=== PATIENT | female | born 1985 | race Caucasian/White ===

== ENCOUNTER 2018-02-10 09:07 | Inpatient (IN) ==
[2018-02-10 09:44] LABS: Baso # (Auto) 0.1 th/mm3 (0.0-0.2); Baso % (Auto) 0.4 % (0.0-2.0); Hematocrit 30.4 % (35.0-46.0); Hemoglobin 9.7 gm/dL (11.6-15.3); Lymph # (Auto) 0.3 th/mm3 (1.0-4.8); Lymph % (Auto) 1.1 % (9.0-44.0); Mean Corpuscular Hemoglobin 27.5 pg (27.0-34.0); Mean Corpuscular Volume 85.8 fL (80.0-100.0); Mean Platelet Volume 7.7 fL (7.0-11.0); Mono # (Auto) 1.5 th/mm3 (0.0-0.9); Mono % (Auto) 5.8 % (0.0-8.0); Neut # (Auto) 24.7 th/mm3 (1.8-7.7); Neut % (Auto) 92.7 % (16.0-70.0); Platelet Count 212 th/mm3 (150-450); Red Blood Count 3.54 mil/mm3 (4.00-5.30); Red Cell Distribution Width 15.6 % (11.6-17.2); White Blood Count 26.6 th/mm3 (4.0-11.0)
--- NOTE | 2018-02-10 09:47 | ED ---
HPI General Chief complaint: Nausea/Vomiting/Diarrhea Stated complaint: Medical Time Seen by Provider: 02/10/18 09:37 Source: patient Mode of arrival: EMS Limitations: no limitations History of Present Illness HPI narrative: Patient is a 32-year-old female who is an IV drug abuser, presents to the emergency room with complaints of withdrawal symptoms. Patient reports that she uses IV heroin, she does not remember when she last used. Patient is currently withdrawing from her heroin as she has not used in the past few days. Patient reports that she has been having fevers, chills, reports that she has been having nausea with vomiting and diarrhea. Patient reports that she feels weak. Patient reports that she was actively trying to quit using drugs for self, that is why she stopped shooting up heroin. Patient denies suicidal or homicidal ideation. Patient denies any other drug abuse. Related Data Allergies Allergy/AdvReac Type Severity Reaction Status Date / Time *MDRO Multi-Drug Resistant Allergy Unknown Uncoded 09/04/13 13:15 Organism Review of Systems ROS: all other systems reviewed are negative [facility] Social History Social History Substance History: Active Abuse Second Hand Smoke Exposure: Yes Smoking Status: Current every day smoker Tobacco Type: Cigarettes How Often Do You Have a Drink Containing Alcohol: Never Recent Travel in [facility] within the Last 8 Weeks: No Recent Out of Country Travel within the Last 8 Weeks: No Substance Abuse Detail Heroin: Substance Use Status: Active Route Used Substance Abuse: Intravenously Reason for Use: Calm Down, Curiosity and Feels Good Immunization History Tetanus Immunization: <5 Years Exam Narrative Exam Narrative: GENERAL: Moderate distress SKIN: Focused skin assessment warm/dry. HEAD: Atraumatic. Normocephalic. EYES: Pupils equal and round. No scleral icterus. No injection or drainage. ENT: No nasal bleeding or discharge. Mucous membranes pink and moist. NECK: Trachea midline. No JVD. CARDIOVASCULAR: Patient is tachycardic with a heart rate in the 130s. a cardiac murmur is appreciated. RESPIRATORY: No accessory muscle use. Clear to auscultation. Breath sounds equal bilaterally. GASTROINTESTINAL: Abdomen soft, non-tender, nondistended. Hepatic and splenic margins not palpable. MUSCULOSKELETAL: No obvious deformities. No clubbing. No cyanosis. No edema. Patient with multiple track cantu to bilateral AC's, there are no obvious signs of infection. NEUROLOGICAL: Awake and alert. No obvious cranial nerve deficits. Motor grossly within normal limits. Normal speech. PSYCHIATRIC: Anxious mood and affect Course Initial Documented Vital Signs Temperature 98.5 F 02/10/18 09:14 Pulse Rate 126 H 02/10/18 09:14 Respiratory Rate 34 H 02/10/18 09:14 Blood Pressure 121/77 02/10/18 09:14 Pulse Oximetry 94 L 02/10/18 09:14 Last Documented Vital Signs Temperature 98.6 F 02/10/18 09:20 Pulse Rate 134 H 02/10/18 10:47 Respiratory Rate 50 H 02/10/18 10:47 Blood Pressure 185/93 H 02/10/18 10:47 Pulse Oximetry 94 L 02/10/18 09:14 Critical Care Time Critical Care Time: Yes Total Critical Care Time: 45 Attestation: Aggregate critical care time was 45 minutes. Time to perform other separately billable procedures was not included in the critical care time. My time did not include minutes spent treating any other patients simultaneously or on activities that did not directly contribute to the patient's treatment. The services I provided to this patient were to treat and/or prevent clinically significant deterioration that could result in: , decompensation, deterioration I provided critical care services requiring my management, as noted below: Chart data review, documentation time, medication orders and management, vital sign assessments/reviewing monitor data, ordering and reviewing lab tests, ordering and interpreting/reviewing x-rays and diagnostic studies, care of the patient and discussion of the patient with the admitting physicians. Medical Decision Making MDM Narrative Medical decision making narrative: During the course of the patients emergency department visit, the patients history, examination, and differential diagnosis were reviewed with the patient. The patient was placed on a calibration engineer with oximetry and frequent blood pressure monitoring. The patient had an IV access obtained and blood work sent for analysis. The patient was initially provided IV fluids as well as IV Ativan to help with her withdrawal symptoms. Patient is tachycardic, patient is complaining of fevers and chills, blood cultures were ordered as there is concern for possible bacteremia versus endocarditis. The patients laboratory studies were reviewed and remarkable for: wbc 26.6, hgb 9.7, hct 30.4, platetet 212 Patient is tachycardic with a white blood cell count of 26.1, a septic workup was initiated. I am concerned the patient possibly has endocarditis, will cover with vancomycin as well as Zosyn. Lactic acid is 4.0 Patient wtih a sodium of 125, potassium 3.2, run 21, cr 1.35 lfts are all elevated Patient with sepsis with hyponatremia and hypokalemia currently detoxing from opiates. Plan to admit to the [facility] case reviewed with Dr. Ruiz who accepts pt to service Patient's trop is 7.29, ekg with sinus tach at [address] seg elevation - this was reviewed with Dr. Ruiz - she has ordered a STAT echo - request call out to patient support representative Medical Screen Exam Complete: Yes Emergency Medical Condition: Yes Differential Diagnosis Differential Diagnosis: Opiate withdrawal, gastritis, gastroenteritis, bacteremia, endocarditis Medical Records Medical records reviewed: Yes I reviewed the patient's medical records. Lab Data Result diagrams: 02/10/18 09:31 02/10/18 09:31 Lab Results 02/10/18 02/10/18 02/10/18 Range/Units 09:31 09:31 09:31 WBC 26.6 H (4.0-11.0) th/mm3 RBC 3.54 L (4.00-5.30) mil/mm3 Hgb 9.7 L (11.6-15.3) gm/dL Hct 30.4 L (35.0-46.0) % MCV 85.8 (80.0-100.0) fL MCH 27.5 (27.0-34.0) pg MCHC 32.0 (32.0-36.0) % RDW 15.6 (11.6-17.2) % Plt Count 212 (150-450) th/mm3 MPV 7.7 (7.0-11.0) fL Prelim Diff (Auto) Slide review pending Neut % (Auto) 92.7 H (16.0-70.0) % Lymph % (Auto) 1.1 L (9.0-44.0) % [place] % (Auto) 5.8 (0.0-8.0) % Eos % (Auto) 0.0 (0.0-4.0) % Baso % (Auto) 0.4 (0.0-2.0) % Neut # (Auto) 24.7 H (1.8-7.7) th/mm3 Lymph # (Auto) 0.3 L (1.0-4.8) th/mm3 [place] # (Auto) 1.5 H (0.0-0.9) th/mm3 Eos # (Auto) 0.0 (0.0-0.4) th/mm3 Baso # (Auto) 0.1 (0.0-0.2) th/mm3 WBC Differential Manual diff final Seg Neuts % (Manual) 80 H (16-70) % Band Neuts % (Manual) 19 H (0-6) % Monocytes % (Manual) 1 (0-8) % Abs Neuts (Manual) 26.3 H (1.8-7.7) th/mm3 Differential Comment . Toxic Granulation 2+ H (None) Toxic Vacuolation Present H (None) Platelet Estimate Normal (Normal) Platelet Morphology Normal (Normal) PT (9.8-11.6) sec INR Ratio APTT (23.4-31.7) sec Sodium 125 L (136-145) meq/L Potassium 3.2 L (3.5-5.1) meq/L Chloride 93 L (98-107) meq/L Carbon Dioxide 20.0 L (21.0-32.0) meq/L Anion Gap 12 (5-15) meq/L BUN 21 H (7-18) mg/dL Creatinine 1.35 H (0.50-1.00) mg/dL Estimated GFR 45 L (>89) mL/min Random Glucose 241 H (74-106) mg/dL Lactic Acid 4.0 H (0.4-2.0) mmol/L Calcium 8.0 L (8.5-10.1) mg/dL Total Bilirubin 0.6 (0.2-1.0) mg/dL AST 346 H (15-37) U/L ALT 173 H (10-53) U/L Alkaline Phosphatase 197 H (45-117) U/L Troponin I (0.02-0.05) ng/mL Total Protein 7.5 (6.4-8.2) g/dL Albumin 2.0 L (3.4-5.0) g/dL 02/10/18 02/10/18 Range/Units 09:31 09:50 WBC (4.0-11.0) th/mm3 RBC (4.00-5.30) mil/mm3 Hgb (11.6-15.3) gm/dL Hct (35.0-46.0) % MCV (80.0-100.0) fL MCH (27.0-34.0) pg MCHC (32.0-36.0) % RDW (11.6-17.2) % Plt Count (150-450) th/mm3 MPV (7.0-11.0) fL Prelim Diff (Auto) Neut % (Auto) (16.0-70.0) % Lymph % (Auto) (9.0-44.0) % [place] % (Auto) (0.0-8.0) % Eos % (Auto) (0.0-4.0) % Baso % (Auto) (0.0-2.0) % Neut # (Auto) (1.8-7.7) th/mm3 Lymph # (Auto) (1.0-4.8) th/mm3 [place] # (Auto) (0.0-0.9) th/mm3 Eos # (Auto) (0.0-0.4) th/mm3 Baso # (Auto) (0.0-0.2) th/mm3 WBC Differential Seg Neuts % (Manual) (16-70) % Band Neuts % (Manual) (0-6) % Monocytes % (Manual) (0-8) % Abs Neuts (Manual) (1.8-7.7) th/mm3 Differential Comment Toxic Granulation (None) Toxic Vacuolation (None) Platelet Estimate (Normal) Platelet Morphology (Normal) PT 14.8 H (9.8-11.6) sec INR 1.5 Ratio APTT 33.1 H (23.4-31.7) sec Sodium (136-145) meq/L Potassium (3.5-5.1) meq/L Chloride (98-107) meq/L Carbon Dioxide (21.0-32.0) meq/L Anion Gap (5-15) meq/L BUN (7-18) mg/dL Creatinine (0.50-1.00) mg/dL Estimated GFR (>89) mL/min Random Glucose (74-106) mg/dL Lactic Acid (0.4-2.0) mmol/L Calcium (8.5-10.1) mg/dL Total Bilirubin (0.2-1.0) mg/dL AST (15-37) U/L ALT (10-53) U/L Alkaline Phosphatase (45-117) U/L Troponin I 7.29 H* (0.02-0.05) ng/mL Total Protein (6.4-8.2) g/dL Albumin (3.4-5.0) g/dL Imaging Data Radiologist's impression: Chest X-Ray 02/10/18 09:43 CONCLUSION: 1. Platelike airspace disease at the lung bases bilaterally, presumably atelectasis. Differential considerations include pneumonia and aspiration in the appropriate clinical setting. Discharge Plan Discharge Disposition Patient Disposition: ED Admit(ED Internal Use Only) Discharge Condition Condition: Serious Discharge Order Discharge Orders: ED Use Only Admit Order (Routine); Ordered 02/10/18 Ordered By: Wendi Cates Discharge Details Diagnosis: Sepsis, Acute hyponatremia, Acute hypokalemia, Acute opioid withdrawal Physicians Team ED Provider: Wendi Cates Primary Care Provider: Primary Care Julio Ci,Michaela Attending Provider: Marybeth Ruiz Status ED Status: Admitted Patient
[2018-02-10] MEDS ORDERED: Piperacil/Tazo 3.375 GM Premix 50 ML IV.SIG ONE (09:58)
[2018-02-10] MEDS ORDERED: Vancomycin Inj 1,000 MG in Sodium Chlor 0.9% Inj 250 ML IV.SIG ONE (09:58)
[2018-02-10 10:00] LABS: Anion Gap 12 meq/L (5-15); Aspartate Aminotransferase 346 U/L (15-37); Blood Urea Nitrogen 21 mg/dL (7-18); Chloride 93 meq/L (98-107); Glomerular Filtration Rate 45 mL/min (>89); Glucose,Random 241 mg/dL (74-106); Potassium 3.2 meq/L (3.5-5.1); Sodium 125 meq/L (136-145)
[2018-02-10 10:02] LABS: Alanine Aminotransferase 173 U/L (10-53)
[2018-02-10 10:03] LABS: Alkaline Phosphatase 197 U/L (45-117); Total Protein 7.5 g/dL (6.4-8.2)
[2018-02-10] MEDS ORDERED: Potassium Chlor 20 mEq Premix 20 MEQ/100 ML PIGGYBACK IV.SIG ONE (10:07)
[2018-02-10 10:28] LABS: Monocytes 1 % (0-8); Platelet Estimate Normal (Normal); Platelet Morphology Normal (Normal); Toxic Granulation 2+; Toxic Vacuolation Present
[2018-02-10 10:28] LABS: Activated Partial Thrombo Time 33.1 sec (23.4-31.7); INR 1.5 Ratio; Prothrombin Time 14.8 sec (9.8-11.6)
[2018-02-10] MEDS: Sod Chloride 0.9% Inj 1,000 ML IV.SIG SCH ×2 (10:28→10:55)
--- NOTE | 2018-02-10 10:28 | XR ---
EXAM DATE: 02/10/2018 10:14 AM EST AGE/SEX: 32 years / Female INDICATIONS: Shortness of breath. CLINICAL DATA: This is the patient's initial encounter. Patient reports that signs and symptoms have been present for 1 day and indicates a pain score of Nonresponsive. MEDICAL/SURGICAL HISTORY: Non-responsive. Non-responsive. COMPARISON: No prior exams available for comparison. FINDINGS: Platelike airspace disease at the lung bases bilaterally. Cardiac silhouette is in the upper limits o f normal given portable technique and degree of lung expansion. Osseous structures are intact. CONCLUSION: 1. Platelike airspace disease at the lung bases bilaterally, presumably atelectasis. Differential co nsiderations include pneumonia and aspiration in the appropriate clinical setting. Electronically signed by: Jaycob Bowling MD 02/10/2018 10:27 AM EST
[2018-02-10] MEDS ORDERED: Acetaminophen 325 MG Tablet PO PRN (10:35)
[2018-02-10] MEDS ORDERED: Bisacodyl 10 MG Supp RECTAL PRN (10:35)
[2018-02-10] MEDS ORDERED: Vancomycin Consult Pharmacy OTHER PRN (10:48)
[2018-02-10] MEDS ORDERED: Sod Chloride 0.9% Inj 1,000 ML IV.SIG SCH ×2 (11:00→12:58)
[2018-02-10 11:03] LABS: ABG PCO2 24 mmHg (38-42); ABG PO2 62 mmHg (61-120)
[2018-02-10] MEDS: Heparin - SQ 10,000 UNITS/ML Vial SQ SCH ×2 (11:32→21:06)
--- NOTE | 2018-02-10 12:24 | ECHRPT ---
Indication: sepsis poss endocarditis CONCLUSIONS Mildly dilated left ventricle. Wall thickness is normal. The left ventricular systolic function is normal with an estimated ejection fraction in the range of 55-60%. The left atrial size is mildly dilated. Mild mitral valve regurgitation. Mild thickening of the aortic valve leaflets. Moderate aortic valve regurgitation. The estimated pulmonary arterial pressure is 42 mmHg. There is mild tricuspid valve regurgitation. There is a small pericardial effusion present. Suspect aortic valve endocarditis. BP: / HR: Rhythm: MEASUREMENTS (Male / Female) Normal Values Technical Quality:Technically difficult study 2D ECHO LV Diastolic Diameter PLAX 5.4 cm 4.2 - 5.9 / 3.9 - 5.3 cm LV Systolic Diameter PLAX 3.8 cm IVS Diastolic Thickness 0.9 cm 0.6 - 1.0 / 0.6 - 0.9 cm LVPW Diastolic Thickness 1.0 cm 0.6 - 1.0 / 0.6 - 0.9 cm LV Relative Wall Thickness 0.3 RV Internal Dim ED PLAX 2.5 cm LVOT Diameter 2.2 cm Aortic Root Diameter 2.6 cm LA Systolic Diameter LX 4.0 cm 3.0 - 4.0 / 2.7 - 3.8 cm LV Ejection Fraction MOD BP 49.3 % >= 55 % LV Ejection Fraction MOD 4C 51.4 % LV Ejection Fraction 4C AL 52.9 % LV Ejection Fraction MOD 2C 46.3 % LV Ejection Fraction 2C AL 49.0 % M-MODE Aortic Root Diameter MM 2.5 cm LA Systolic Diameter MM 4.4 cm LA Ao Ratio MM 1.8 AV Cusp Separation MM 1.8 cm DOPPLER AV Peak Velocity 168.0 cm/s AV Peak Gradient 11.3 mmHg AV Mean Gradient 7.0 mmHg AV Velocity Time Integral 21.0 cm AI Peak Velocity 349.0 cm/s AI Peak Gradient 48.7 mmHg AI Pressure Half Time 155.0 ms LVOT Peak Velocity 155.0 cm/s LVOT Peak Gradient 9.6 mmHg LVOT Velocity Time Integral 18.1 cm AV Area Cont Eq vti 3.3 cm AV Area Cont Eq pk 3.5 cm Mitral E Point Velocity 126.0 cm/s Mitral A Point Velocity 91.0 cm/s Mitral E to A Ratio 1.4 LV E' Lateral Velocity 12.5 cm/s Mitral E to LV E' Lateral Ratio 10.1 LV E' Septal Velocity 13.5 cm/s Mitral E to LV E' Septal Ratio 9.3 TR Peak Velocity 282.0 cm/s TR Peak Gradient 31.8 mmHg Right Atrial Pressure 10.0 mmHg Pulmonary Artery Systolic Pressu 41.8 mmHg Right Ventricular Systolic Press 41.8 mmHg PV Peak Velocity 149.0 cm/s PV Peak Gradient 8.9 mmHg FINDINGS LEFT VENTRICLE Mildly dilated left ventricle. Wall thickness is normal. The left ventricular systolic function is normal with an estimated ejection fraction in the range of 55-60%. LEFT ATRIUM The left atrial size is mildly dilated. MITRAL VALVE Mild mitral valve regurgitation. AORTIC VALVE Mild thickening of the aortic valve leaflets. Moderate aortic valve regurgitation. Suspect a vegetation on the non=coronary cusp c/w endocarditis. TRICUSPID VALVE The estimated pulmonary arterial pressure is 42 mmHg. There is mild tricuspid valve regurgitation. PERICARDIUM There is a small pericardial effusion present. Rubén Ham MD (Electronically Signed) Final Date:10 February 2018 12:23
[2018-02-10 12:26] LABS: CKMB Percent 2.6 % (0.0-4.0); Creatine Kinase MB 9.5 ng/mL (0.5-3.6)
[2018-02-10 12:31] LABS: Hepatitits B Surface Antigen Nonreactive (Nonreactive)
[2018-02-10] MEDS ORDERED: Succinylcholine Inj 100 MG/5 ML Syringe IV.PUSH ONE (12:56)
[2018-02-10 12:58] LABS: Hepatitis A IgM Antibody Nonreactive (Nonreactive)
[2018-02-10] MEDS ORDERED: Propofol Inj 500 MG/50 ML Vial ONE (12:58)
[2018-02-10] MEDS ORDERED: Succinylcholine Inj 200 MG/10 ML Vial ONE ×2 (12:58)
[2018-02-10] MEDS ORDERED: RASS Change Order OTHER ONE (13:00)
[2018-02-10] MEDS ORDERED: PROPOFOL 1000 MG/100 ML IV.PUSH ONE (13:30)
--- NOTE | 2018-02-10 13:30 | MB ---
cc: Rubén Ham MD DATE: 02/10/2018 CARDIOLOGY CONSULTATION REASON FOR CONSULTATION: Endocarditis. HISTORY OF PRESENT ILLNESS: Ary Brunson is a 32-year-old female intravenous drug abuser. She reported to the ER doctor that she uses IV heparin; had not used in a few days and is going through heavy withdrawal. At the time I am seeing the patient, she is curled up in the fetus position on the side and I could not get her to straighten out or provide me any history. She is on a nonrebreather mask and in the process of being intubated. I have already looked at her echocardiogram and Doppler study. Her LV function looks good, but there is moderate aortic regurgitation and I suspect there is a vegetation on the noncoronary cusp. PAST MEDICAL HISTORY: Only notable for intravenous drug abuse. She is also a current everyday smoker according to the chart. PHYSICAL EXAMINATION: GENERAL: Reveals what appears to be a middle-aged female; appears older than her stated age. She is in moderate to severe respiratory distress on a nonrebreather mask in the process of being intubated. HEENT: Unremarkable. NECK: From the position she was in, I could not see any JVD. LUNGS: Negative for any rales. CARDIAC: S1, S2 are tachycardic. Could not appreciate murmurs at this time, particularly with the inability to lay her flat. ABDOMEN: Soft. EXTREMITIES: Reveal no clubbing, cyanosis or edema. There is track cantu in the cubital fossa bilaterally. LABORATORY DATA: Extremely abnormal. White count 26,600, platelet count 212,000, hematocrit 30.4. Sodium depressed at 125, potassium low 3.2, creatinine 1.35. AST, ALT and alkaline phosphatase severely elevated. Troponins elevated to 7.29. CPK is elevated 369. Albumin is depressed at 2.0. IMAGING: Her chest x-ray suggesting plate-like atelectasis. IMPRESSION: The patient appears grossly septic and based on the echo, is highly suggestive of aortic valve endocarditis. The images are not clear, but it looks suggestive of a vegetation on the noncoronary cusp with moderate aortic regurgitation. LV function is preserved. Elevated troponin may be from sepsis or possible mycotic aneurysm or septic emboli to the coronaries. RECOMMENDATIONS: Would recommend an infectious disease consult at some point, she will need a followup ROSANNA. She is not a surgical candidate as of today, so I am going to hold off on doing the ROSANNA today. I will follow her loosely along with the expanded function dental assistant and infectious disease team. I will be available for a ROSANNA when this will be more helpful in guiding her management. For now, she will need broad-spectrum antibiotics and cultures, which have already been arranged. Further therapy to be determined. MD RYAN Martins/domitila , 01:08 PM , 01:16 PM
--- NOTE | 2018-02-10 13:51 | P.PCN ---
Date of procedure: 02/10/18 Pre-op diagnosis: Drug withdrawal syndrome, sepsis Post-op diagnosis: same Procedure: Diagnosis: Drug withdrawal, sepsis Indications: Medication administration, CVP monitoring, laboratory specimen asked Consent: Emergent Anesthesia: Intubated and sedated see (MAR) Description of the Procedure: The patient was placed in the supine, mild- Trendelenburg position. The area was prepped and draped sterilely. A 19g needle was inserted under negative pressure aspiration and dark venous blood was obtained. A guidewire was inserted easily without resistance. A small incision was made using a #11 blade. Using a modified Seldinger technique, the dilator and 7F 20 cm catheter were advanced over the guidewire without resistance. All ports were aspirated and flushed, and had brisk blood return. The line was secured at 19 cmat the skin using StatLock secured to. A Biopatch and Transparent sterile dressing were applied. There were no immediate complications noted. There was minimal EBL. The patient tolerated the procedure well. Ultrasound Guidance: Ultrasound guidance was used to identify the left internal jugular. The vascular anatomy was normal. The vessel was cannulated under direct , real-time ultrasound visualization. After placement of the guidewire, confirmation of the guidewire in the lumen of the vessel was made using ultrasound visualization, before dilation of the tract. A Chest x-ray has been ordered. I personally performed the procedure. Anesthesia: local Condition: stable Disposition: ICU
--- NOTE | 2018-02-10 13:53 | P.PCN ---
Date of procedure: 02/10/18 Pre-op diagnosis: Respiratory insufficiency, tachypnea Post-op diagnosis: same Procedure: Endotracheal Intubation Diagnosis: Drug withdrawal, sepsis Indications: Respiratory insufficiency Consent: Emergent Anesthesia: see MAR Description of the Procedure: The patient was positioned in the sniffing position. Pre-oxygenation was performed using a 100% BVM. Anesthesia was induced via rapid sequence, with cricoid pressure. A glide scope 3 was used for laryngoscopy and a Grade 1 view was obtained. A 7.5 cuffed endotracheal tube was inserted atraumatically through the vocal cords. Confirmation of correct endotracheal tube placement was made by equal and bilateral breath sounds and colorimetric CO2 detection. The endotracheal tube was secured at 22 cm at the teeth. There were no immediate complications noted. The patient remained hemodynamically stable throughout the procedure. A chest x-ray has been ordered. I personally performed the procedure.
[2018-02-10 13:57] LABS: ABG PCO2 44 mmHg (38-42); ABG PO2 93 mmHG (61-120)
--- NOTE | 2018-02-10 14:12 | XR ---
EXAM DATE: 02/10/2018 2:05 PM EST AGE/SEX: 32 years / Female INDICATIONS: Post endotracheal tube and left central line. CLINICAL DATA: This is the patient's subsequent encounter. Patient reports that signs and symptoms h ave been present for 2 days and indicates a pain score of Nonresponsive. MEDICAL/SURGICAL HISTORY: Non-responsive. Non-responsive. COMPARISON: C, CHEST 1V SINGLE AP, 02/10/2018. . FINDINGS: Portable AP view of the chest demonstrates cardiac silhouette size at the upper limits for normal. Na sogastric tube distal tip is at the GE junction with sentinel hole in the distal esophagus. Endotrach eal tube distal tip is near the aortic knob level measuring approximately 4.8 cm from the radha. Lef t IJ central line distal tip is in the SVC and no pneumothorax is visualized. There is stable mild bi basilar airspace opacity. CONCLUSION: 1. Endotracheal tube in appropriate position with tip measuring 4.8 cm from the radha. 2. Left IJ central line distal tip in the SVC without pneumothorax. 3. The nasogastric tube should be advanced the stomach. 4. Stable bibasilar opacity. Electronically signed by: Wm Molina MD 02/10/2018 2:10 PM EST
--- NOTE | 2018-02-10 14:23 | P.HPCC ---
History of Present Illness Service: ICU Primary Care Physician: No Primary Care Physician Chief Complaint: Drug withdrawal History of Present Illness: This is a 32-year-old female that presented to [facility] emergency department with drug withdrawal symptoms. The patient reported to the ED physician Dr. Dwyer that she is a IV drug abuser and normally utilizes heroin but has been withdrawing. The patient was noted to be in rigors. Laboratory and imaging studies were performed the patient was noted to have a lactic acid of 4. Initial troponin was significantly elevated at 4. Cardiology was consulted nadd a stat transthoracic echo was performed which noted a vegetation on the aortic valve. Cardiology was consulted. In the ED the patient received prophylactic antibiotics vancomycin and Zosyn as well as 2 mg of Ativan. All information obtained from medical records upon my examination the patient was not responding to questions. In the ED the patient was noted to be diaphoretic , tachycardic, copious diarrhea. Critical care medicine was consulted Inpatient Certification: I certify that the inpatient services were ordered in accordance with Medicare regulations governing the order. This includes certification that hospital inpatient services are reasonable and necessary and in the case of services not specified as inpatient-only under 42 CFR 419.22(n), that they are appropriately provided as inpatient services in accordance to with the 2-midnight benchmark under 43 CFR 412.3(e) Estimated Total Length of Stay (Days): 5 Plans for Post Hospital Care: Not yet determined Review of Systems unobtainable due to mental status PMFSH - History History Provided By: Patient - Tobacco History Second Hand Smoke Exposure: Yes Tobacco Use In Past 30 Days: Yes Smoking Status: Current every day smoker Tobacco Type: Cigarettes - Alcohol History How Often Do You Have a Drink Containing Alcohol: Never - Substance Use History Substance History: Active Abuse - Substance Use Type Heroin Status: Active Route Used: Intravenously Reason for Use: Calm Down, Curiosity, Feels Good - Travel History Recent Travel in the [place] Within the Last 8 Weeks: No Recent Travel Out of the Country Within the Last 8 Weeks: No - Immunization History Tetanus Immunization: <5 Years Medications and Allergies Active Medications: Active Medications Acetaminophen (Tylenol) 650 mg PO Q6H PRN PRN Reason: PAIN 1-10 AND/OR FEVER >101F Al Hydroxide/Mg Hydroxide (Milk Of Magnesia Liq) 30 ml PO Q12H PRN PRN Reason: Mild Constipation Albuterol (Duoneb Neb (Prn)) 1 ampul NEB Q2HR NEB PRN PRN Reason: WHEEZING Bisacodyl (Dulcolax Supp) 10 mg RECTAL DAILY PRN PRN Reason: SEVERE CONSITIPATION Chlorhexidine Gluconate (Chlorhexidine 2% Cloth) 3 pack TOPICAL DAILY@0400 MARICRUZ Stop: 02/16/18 03:59 Chlorhexidine Gluconate (Chlorhexidine 2% Cloth) 3 pack TOPICAL DAILY@0400 PRN PRN Reason: Extra cloth needed Stop: 02/16/18 03:59 Famotidine (Pepcid Pf Inj) 20 mg IV.PUSH Q12HR MARICRUZ Heparin Sodium (Porcine) (Heparin Inj) 5,000 units SQ Q12HR MARICRUZ Last Admin: 02/10/18 11:32 Dose: 5,000 units Potassium Chloride/Dextrose/Sod Cl (D5w/1/2ns + Kcl 20 Meq Inj) 1,000 mls @ 100 mls/hr IV.CONT .Q10H MARICRUZ Piperacillin/Tazobactam/Dextrose (Zosyn 2.25 Gm Premix) 50 mls @ 100 mls/hr IV.SIG Q6H MARICRUZ Vancomycin HCl 1,000 mg/ (Sodium Chloride) 250 mls @ 250 mls/hr IV.SIG Q18H MARICRUZ Dexmedetomidine HCl 200 mcg/ (Sodium Chloride) 50 mls @ 2.94 mls/hr IV.CONT TITRATE PRN; Protocol PRN Reason: Per Protocol Acetaminophen (Ofirmev Inj) 1,000 mg in 100 mls @ 400 mls/hr IV.SIG Q6H PRN PRN Reason: PAIN SCALE 1 TO 10 Stop: 02/12/18 23:59 Sodium Chloride (Ns Inj) 1,000 mls @ 1,000 mls/hr IV.SIG BOLUS MARICRUZ Stop: 02/10/18 13:57 Lactulose (Lactulose Liq) 30 ml PO DAILY PRN PRN Reason: SEVERE CONSITIPATION Miscellaneous Information ([facility] Ordered Lab Info) 0 each OTHER ONCE ONE Stop: 02/12/18 15:46 Ondansetron HCl (Zofran Inj) 4 mg IV.PUSH Q6H PRN PRN Reason: NAUSEA OR VOMITING Pharmacy Profile Note (Vancomycin Consult Pharmacy) 1 each OTHER UNSCH PRN PRN Reason: Pharmacy to dose Sennosides (Senokot) 17.2 mg PO Q12H PRN PRN Reason: Moderate Constipation Sodium Chloride (Ns Flush) 2 ml IV.FLUSH BID MARICRUZ Sodium Chloride (Ns Flush) 2 ml IV.FLUSH PRN PRN PRN Reason: FLUSH AFTER USING IV ACCESS Allergies Allergy/AdvReac Type Severity Reaction Status Date / Time *MDRO Multi-Drug Resistant Allergy Unknown Uncoded 09/04/13 13:15 Organism Home Medications Medication Instructions Recorded Confirmed Type Unable to Obtain Home Meds 02/10/18 02/10/18 History Results - Labs CBC & Chem 7: 02/10/18 09:31 02/10/18 09:31 Labs: Short CBC 02/10/18 Range/Units 09:31 WBC 26.6 H (4.0-11.0) th/mm3 Hgb 9.7 L (11.6-15.3) gm/dL Hct 30.4 L (35.0-46.0) % Plt Count 212 (150-450) th/mm3 BMP 02/10/18 09:31 Sodium 125 L Potassium 3.2 L Chloride 93 L Carbon Dioxide 20.0 L BUN 21 H Creatinine 1.35 H Calcium 8.0 L Cardiac Enzymes 02/10/18 02/10/18 Range/Units 09:31 11:21 Total Creatine Kinase 369 H (26-192) U/L CK-MB (CK-2) 9.5 H (0.5-3.6) ng/mL Troponin I 7.29 H* (0.02-0.05) ng/mL Liver Function 02/10/18 Range/Units 09:31 Total Bilirubin 0.6 (0.2-1.0) mg/dL AST 346 H (15-37) U/L ALT 173 H (10-53) U/L Alkaline Phosphatase 197 H (45-117) U/L Albumin 2.0 L (3.4-5.0) g/dL - Imaging Impressions Chest X-Ray 02/10/18 09:43 CONCLUSION: 1. Platelike airspace disease at the lung bases bilaterally, presumably atelectasis. Differential considerations include pneumonia and aspiration in the appropriate clinical setting. Exam Vital signs: Vital Signs 02/10/18 09:14 02/10/18 09:20 02/10/18 10:47 Temperature 98.5 F 98.6 F Pulse Rate 126 H 134 H Respiratory Rate 34 H 50 H Blood Pressure 121/77 185/93 H Pulse Oximetry 94 L 02/10/18 11:37 02/10/18 12:00 02/10/18 13:06 Temperature Pulse Rate 137 H 134 H Respiratory Rate 50 H 48 H 18 Blood Pressure 127/86 156/66 H Pulse Oximetry 96 96 97 Intake & Output 02/09/18 02/10/18 02/10/18 18:59 06:59 18:59 Intake Total 2250 / 2250 Balance 2250 / 2250 Weight 58.967 kg Intake: IV 2250 / 2250 NS Inj 1,000 ML @ 2000 mls/hr 1999 / 1999 IV.SIG Q30M MARICRUZ Rx#:[id number] Vancomycin Inj 1,000 MG In NS 250 / 250 Inj 250 ML @ 250 mls/hr IV.SIG ONCE ONE Rx#:[id number] - Constitutional severe distress, average body habitus, disheveled - Routine HEENT Exam Head: Present: normocephalic Eye: Present: EOMI, PERRL ENT: Present: mucous membranes dry, dentition normal (Multiple caries) - Routine Neck Exam Present: supple, full ROM, trachea midline - Routine Respiratory Exam Present: accessory muscle use, respiratory distress (Tachypneic respiratory rate 61-66) - Routine Cardiovascular Exam Present: RRR, S2, tachycardia - Routine Abdominal Exam Present: soft (Hyperactive bowel sounds) - Routine Extremities Exam Present: normal capillary refill (Multiple needle cantu on upper and lower extremity) - Routine Skin Exam Present: intact, dry, warm - Routine Neurological Exam Present: moving all extremities (Rigors-temp 103.0), tremors Caprini VTE Risk Assessment Caprini VTE Risk Assessment: Moderate/High Risk (score >= 2) Caprini Risk Assessment Model: Point Value = 1 Point Value = 2 Point Value = 3 Point Value = 5 Age 41-60 Minor surgery BMI > 25 kg/m2 Swollen legs Varicose veins or History of unexplained or recurrent spontaneous Oral contraceptives or hormone replacement Sepsis (< 1 month) Serious lung disease, including pneumonia (< 1 month) Abnormal pulmonary function Acute myocardial infarction Congestive heart failure (< 1 month) History of inflammatory bowel disease Medical patient at bed rest Age 61-74 Arthroscopic surgery Major open surgery (> 45 min) Laparoscopic surgery (> 45 min) Malignancy Confined to bed (> 72 hours) Immobilizing plaster cast Central venous access Age >= 75 History of VTE Family history of VTE Factor V Leiden Prothrombin 11425M Lupus anticoagulant Anticardiolipin antibodies Elevated serum homocysteine Heparin-induced thrombocytopenia Other congenital or acquired thrombophilia Stroke (< 1 month) Elective arthroplasty Hip, pelvis, or leg fracture Acute spinal cord injury (< 1 month) Prophylaxis Regimen: Total Risk Factor Score Risk Level Prophylaxis Regimen 0-1 Low Early ambulation 2 Moderate Order ONE of the following: *Sequential Compression Device (SCD) *Heparin 5000 units SQ BID 3-4 Higher Order ONE of the following medications: *Heparin 5000 units SQ TID *Enoxaparin/Lovenox 40 mg SQ daily (WT < 150 kg, CrCl > 30 mL/min) *Enoxaparin/Lovenox 30 mg SQ daily (WT < 150 kg, CrCl > 10-29 mL/min) *Enoxaparin/Lovenox 30 mg SQ BID (WT < 150 kg, CrCl > 30 mL/min) AND/OR *Sequential Compression Device (SCD) 5 or more Highest Order ONE of the following medications: *Heparin 5000 units SQ TID (Preferred with Epidurals) *Enoxaparin/Lovenox 40 mg SQ daily (WT < 150 kg, CrCl > 30 mL/min) *Enoxaparin/Lovenox 30 mg SQ daily (WT < 150 kg, CrCl > 10-29 mL/min) *Enoxaparin/Lovenox 30 mg SQ BID (WT < 150 kg, CrCl > 30 mL/min) AND *Sequential Compression Device (SCD) Assessment and Plan - Assessment and Plan Plan: Assessment This is a 32-year-old female with a history of IV drug abuse of heroin reported per currently an acute drug withdrawal, as well as sepsis. The patient in respiratory distress tachypneic with extreme rigors and elevated temperature required emergent intubation. The patient is critically ill admit to ICU. Plan by systems: Neurologic: IV drug abuse-heroin Drug withdrawal-acute opioid withdrawal Elevated temperature Encephalopathy Neuro checks per ICU protocol Daily sedation vacation Sedated with alpha-2 agonist Precedex infusion Avoid narcotics Add clonidine 0.1 mg 3 times daily via NG tube Provide Versed 2 mg every 4 hours as needed for anxiety or agitation Ofirmev 1 g every 6 hours as needed for temperature greater than 101.0 x 48 hours then utilized Tylenol by NG tube 650 mg every 6 hours as needed Apply cooling blanket 103.0 Respiratory: Acute respiratory insufficiency Tobacco abuse 0 02/10 patient intubated 7.5 ETT at 22 cm at the lip for airway protection and adequate ventilation ABGs post intubation 7./ 40 / 93/19/-6 Cardiovascular: Sinus tachycardia Aortic regurgitation Aortic vegetation Elevated troponin EKG on admission sinus tach with ST changes Initial troponin VII 0.29, follow-up serial troponin TTEcho-EF 55percent, moderate aortic regurgitation, mild MR, mild TR, small pericardial effusion, vegetation aortic valve, PASP [address]. Discussed with Dr. Ham aortic vegetation no plans for transesophageal echo at this time plan to continue antibiotics and current monitoring in the current condition will reevaluate in 24-48 hours Repeat manager parking CVP-initial reading CVP 13 Renal: Renal insufficiency AK I Insert Wasserman for now, may transition to pure weight catheter. Patient extremely dehydrated need close monitoring at this time -- Strict I/Os FEN/GI: Dehydration Hyponatremia Hypokalemia Diarrhea Transaminitis Metabolic acidosis Gastroenteritis secondary to opioid/heroin withdrawal Protein calorie malnutrition Patient bolused with 2 L normal saline IV fluid Central line placed CVP monitoring medication administration and to obtain labs. Electrolyte replacement per ICU protocol Maintain n.p.o. status for now Begin D5 half-normal saline with 20 KCl Zofran for nausea Famotidine for GI prophylax Apply fecal containment device consider Imodium Obtain hepatitis panel Albumin 2.0-maintain n.p.o. status for now Monitor LFT's Give 100 mEq of sodium bicarb IV Heme/ID: Sepsis Possible endocarditis secondary to IVDA Lactic acidemia Bandemia Patient received vancomycin and Zosyn in the emergency room Continue vancomycin and Zosyn prophylactically Follow-up blood culture Obtain urine culture, sputum culture Trend serial lactate levels Monitor CBC Endocrine: Glucose monitoring per ICU protocol -- SSI Prophylaxis: GI Prophylaxis Famotidine DVT Prophylaxis -- SCDs Heparin 5000 units twice daily Lines: Peripheral IVs x2. Secondary to IVDA patient has difficult access for obtainment of labs and monitoring. Left IJ placed for central venous access 02/10 Dispo: My billing statement This patient remains critically ill with one or more organ systems which are or may become a threat to life. I have spent in excess of 60 minutes discontinuously in the care and management of this patient. This time is exclusive of procedures, and includes, but is not limited to, evaluation of the patient, review of the medical record, discussions with family, consultants, nursing staff, or respiratory therapy, and documentation in the medical record. Code Status: Full Discussed Condition With: Dr. Cates, Dr. Ham, BUSINESS INFORMATION MANAGER at bedside
[2018-02-10] MEDS ORDERED: Dextrose 50% in Water 50 ML Vial IV.PUSH PRN (14:24)
[2018-02-10] MEDS ORDERED: Sodium Bicarbonate 8.4% Inj 50 MEQ/50 ML Syringe IV.PUSH ONE (14:26)
[2018-02-10] MEDS: Dexmedetomidine Inj 200 MCG in Sodium Chlor 0.9% Inj 48 ML IV.CONT PRN ×3 (15:07→16:57)
[2018-02-10] MEDS: KCL 20 mEq/D5W/NaCl 0.45% Inj 1,000 ML IV.CONT SCH ×2 (15:14→21:07)
[2018-02-10] MEDS: Propofol 1000 mg/100 ml Inj 1,000 MG/100 ML BOTTLE IV.CONT PRN ×2 (16:56→21:15)
[2018-02-10] MEDS: Insulin NovoLOG Aspart Correctional Sugar Inj SQ SCH ×2 (17:35→21:07)
[2018-02-10] MEDS: Piperacil/Tazo 2.25 GM Premix 50 ML IV.SIG SCH (18:03)
[2018-02-10 18:56] LABS: Amphetamine Screen,Urine Neg (Neg); Barbiturate Screen,Urine Neg (Neg); Cannabinoid Screen,Urine Neg (Neg); Cocaine Screen,Urine Neg (Neg); Opiate Screen,Urine Neg (Neg)
[2018-02-10] MEDS: Dexmedetomidine Inj 1,000 MCG in Sodium Chlor 0.9% Inj 240 ML IV.CONT PRN (20:55)
[2018-02-10] MEDS ORDERED: Albumin Human 5% Inj 500 ML IV.SIG ONE (21:00)
[2018-02-10] MEDS: Famotidine PF Inj 20 MG/2 ML Vial IV.PUSH SCH (21:06)
[2018-02-11] MEDS: Piperacil/Tazo 2.25 GM Premix 50 ML IV.SIG SCH ×2 (00:08→05:19)
[2018-02-11] MEDS: Propofol 1000 mg/100 ml Inj 1,000 MG/100 ML BOTTLE IV.CONT PRN ×5 (02:24→20:55)
[2018-02-11] MEDS: Insulin NovoLOG Aspart Correctional Sugar Inj SQ SCH ×5 (03:40→21:00)
[2018-02-11] MEDS: Vancomycin Inj 1,000 MG in Sodium Chlor 0.9% Inj 250 ML IV.SIG SCH ×2 (03:45→21:01)
[2018-02-11 03:46] LABS: Baso # (Auto) 0.1 th/mm3 (0.0-0.2); Baso % (Auto) 0.3 % (0.0-2.0); Eos # (Auto) 0.1 th/mm3 (0.0-0.4); Eos % (Auto) 0.4 % (0.0-4.0); Hematocrit 23.9 % (35.0-46.0); Mean Corpuscular HGB Conc 33.5 % (32.0-36.0); Mean Corpuscular Hemoglobin 28.4 pg (27.0-34.0); Mean Corpuscular Volume 84.6 fL (80.0-100.0); Mean Platelet Volume 7.8 fL (7.0-11.0); Mono # (Auto) 1.6 th/mm3 (0.0-0.9); Mono % (Auto) 7.8 % (0.0-8.0); Neut # (Auto) 17.4 th/mm3 (1.8-7.7); Neut % (Auto) 86.5 % (16.0-70.0); Platelet Count 142 th/mm3 (150-450); Red Blood Count 2.83 mil/mm3 (4.00-5.30); Red Cell Distribution Width 15.5 % (11.6-17.2); White Blood Count 20.1 th/mm3 (4.0-11.0)
[2018-02-11 03:57] LABS: INR 1.5 Ratio; Prothrombin Time 15.4 sec (9.8-11.6)
[2018-02-11] MEDS ORDERED: Chlorhexidine Gluconate 2% 1 Pack (2 Cloths) TOPICAL PRN (04:00)
[2018-02-11] MEDS: Chlorhexidine Gluconate 2% 1 Pack (2 Cloths) TOPICAL SCH (04:11)
[2018-02-11 04:17] LABS: Albumin 1.8 g/dL (3.4-5.0); Carbon Dioxide 21.9 meq/L (21.0-32.0); Magnesium 2.4 mg/dL (1.5-2.5); Phosphorus 4.5 mg/dL (2.5-4.9); Potassium 3.8 meq/L (3.5-5.1)
[2018-02-11] MEDS: KCL 20 mEq/D5W/NaCl 0.45% Inj 1,000 ML IV.CONT SCH ×3 (05:25→20:55)
[2018-02-11] MEDS: Dexmedetomidine Inj 1,000 MCG in Sodium Chlor 0.9% Inj 240 ML IV.CONT PRN (05:29)
--- NOTE | 2018-02-11 08:38 | P.PNCC ---
Subjective Subjective Remarks/Hospital Course: This is a 32-year-old female that presented to [facility] emergency department with drug withdrawal symptoms. The patient reported to the ED physician Dr. Dwyer that she is a IV drug abuser and normally utilizes heroin but has been withdrawing. The patient was noted to be in rigors. Laboratory and imaging studies were performed the patient was noted to have a lactic acid of 4. Initial troponin was significantly elevated at 4. Cardiology was consulted and a stat transthoracic echo was performed which noted a vegetation on the aortic valve. Cardiology was consulted. In the ED the patient received prophylactic antibiotics vancomycin and Zosyn as well as 2 mg of Ativan. All information obtained from medical records upon my examination the patient was not responding to questions. In the ED the patient was noted to be diaphoretic , tachycardic, copious diarrhea. Critical care medicine was consulted 02/11: Patient was intubated yesterday for worsening respiratory failure and severe sepsis. Currently intubated sedated with propofol and Precedex remains tachypneic on the vent. Requiring Levophed at 11 mcg/min to maintain map above 65. Remains very critical. 2D echo shows mild mitral valve regurgitation. Mild thickening of the aortic valve leaflets. Moderate aortic valve regurgitation. Suspect aortic valve endocarditis. With aortic valve endocarditis and moderate aortic regurgitation prognosis remains guarded Objective Vital Signs / I&O: Vital Signs 02/10/18 09:14 02/10/18 09:20 02/10/18 10:47 Temperature 98.5 F 98.6 F Pulse Rate 126 H 134 H Respiratory Rate 34 H 50 H Blood Pressure 121/77 185/93 H Pulse Oximetry 94 L 02/10/18 11:37 02/10/18 12:00 02/10/18 12:30 Temperature 103.1 F H Pulse Rate 137 H 134 H 143 H Respiratory Rate 50 H 48 H 55 H Blood Pressure 127/86 156/66 H 112/58 L Pulse Oximetry 96 96 95 02/10/18 13:06 02/10/18 13:16 02/10/18 13:18 Temperature Pulse Rate 122 H 125 H Respiratory Rate 18 45 H 60 H Blood Pressure 156/56 H 163/72 H Pulse Oximetry 97 100 97 02/10/18 13:20 02/10/18 13:22 02/10/18 13:24 Temperature Pulse Rate 132 H 132 H 132 H Respiratory Rate 67 H 24 13 Blood Pressure 173/70 H 175/70 H 178/72 H Pulse Oximetry 97 96 96 02/10/18 13:28 02/10/18 13:30 02/10/18 13:32 Temperature Pulse Rate 134 H 136 H 134 H Respiratory Rate 19 19 18 Blood Pressure 174/75 H 170/74 H 171/64 H Pulse Oximetry 95 96 96 02/10/18 13:34 02/10/18 13:36 02/10/18 13:38 Temperature Pulse Rate 135 H 134 H 135 H Respiratory Rate 18 20 31 H Blood Pressure 166/73 H 171/76 H 165/73 H Pulse Oximetry 95 95 95 02/10/18 13:40 02/10/18 13:42 02/10/18 13:44 Temperature Pulse Rate 139 H 137 H 135 H Respiratory Rate 25 H 53 H 64 H Blood Pressure 167/74 H 160/71 H 160/70 H Pulse Oximetry 95 95 95 02/10/18 13:46 02/10/18 13:48 02/10/18 13:50 Temperature Pulse Rate 137 H 135 H 133 H Respiratory Rate 24 20 51 H Blood Pressure 167/72 H 161/70 H 154/67 H Pulse Oximetry 95 95 95 02/10/18 13:52 02/10/18 13:54 02/10/18 13:56 Temperature Pulse Rate 134 H 135 H 134 H Respiratory Rate 27 H 25 H 28 H Blood Pressure 161/70 H 160/69 H 156/58 H Pulse Oximetry 96 96 96 02/10/18 13:58 02/10/18 14:00 02/10/18 14:02 Temperature Pulse Rate 132 H 134 H 133 H Respiratory Rate 92 H 67 H 57 H Blood Pressure 153/67 H 152/69 H 152/68 H Pulse Oximetry 95 95 95 02/10/18 14:04 02/10/18 14:06 02/10/18 14:08 Temperature Pulse Rate 131 H 128 H 127 H Respiratory Rate 47 H 57 H 64 H Blood Pressure 147/66 H 147/65 H 145/64 H Pulse Oximetry 95 96 96 02/10/18 14:10 02/10/18 14:12 02/10/18 14:14 Temperature Pulse Rate 126 H 126 H 127 H Respiratory Rate 87 H 72 H 80 H Blood Pressure 144/64 H 143/64 H 149/66 H Pulse Oximetry 96 96 96 02/10/18 14:15 02/10/18 14:30 02/10/18 14:45 Temperature Pulse Rate 128 H 135 H 134 H Respiratory Rate 98 H 47 H 39 H Blood Pressure 149/65 H 166/76 H 169/74 H Pulse Oximetry 96 96 95 02/10/18 15:00 02/10/18 15:15 02/10/18 15:30 Temperature Pulse Rate 124 H 119 H 114 H Respiratory Rate 52 H 55 H 32 H Blood Pressure 168/77 H 153/67 H 140/63 Pulse Oximetry 95 96 99 02/10/18 15:37 02/10/18 15:45 02/10/18 16:00 Temperature 99.1 F 99.1 F Pulse Rate 114 H 111 H Respiratory Rate 32 H 36 H 36 H Blood Pressure 124/63 120/58 L Pulse Oximetry 98 97 100 02/10/18 16:15 02/10/18 16:30 02/10/18 16:45 Temperature Pulse Rate 111 H 112 H 115 H Respiratory Rate 38 H 32 H 35 H Blood Pressure 110/58 L 120/60 115/65 Pulse Oximetry 99 100 100 02/10/18 17:00 02/10/18 17:15 02/10/18 17:30 Temperature Pulse Rate 110 H 109 H 109 H Respiratory Rate 26 H 41 H 35 H Blood Pressure 96/50 L 98/54 L 102/58 L Pulse Oximetry 100 100 100 02/10/18 17:45 02/10/18 18:00 02/10/18 18:15 Temperature Pulse Rate 111 H 112 H 112 H Respiratory Rate 34 H 33 H 33 H Blood Pressure 104/56 L 110/57 L 105/57 L Pulse Oximetry 100 100 100 02/10/18 18:30 02/10/18 18:45 02/10/18 19:00 Temperature Pulse Rate 114 H 113 H 115 H Respiratory Rate 34 H 32 H 34 H Blood Pressure 107/57 L 101/58 L 102/56 L Pulse Oximetry 100 100 100 02/10/18 19:15 02/10/18 19:30 02/10/18 19:48 Temperature Pulse Rate 112 H 108 H 98 H Respiratory Rate 35 H 32 H 49 H Blood Pressure 97/53 L 85/45 L Pulse Oximetry 100 100 100 02/10/18 19:49 02/10/18 19:52 02/10/18 19:57 Temperature Pulse Rate 98 H 93 H 92 H Respiratory Rate 65 H 71 H 35 H Blood Pressure 64/37 L 67/43 L 72/49 L Pulse Oximetry 100 100 100 02/10/18 20:00 02/10/18 20:06 02/10/18 20:10 Temperature Pulse Rate 92 H 96 H 90 Respiratory Rate 34 H 66 H 70 H Blood Pressure 76/51 L 65/39 L 77/53 L Pulse Oximetry 100 100 100 02/10/18 20:13 02/10/18 20:15 02/10/18 20:30 Temperature Pulse Rate 86 86 85 Respiratory Rate 69 H 52 H 42 H Blood Pressure 83/55 L 85/55 L 86/56 L Pulse Oximetry 100 99 100 02/10/18 20:34 02/10/18 20:45 02/10/18 21:00 Temperature Pulse Rate 82 80 Respiratory Rate 34 H 41 H 43 H Blood Pressure 86/54 L 84/55 L Pulse Oximetry 100 100 99 02/10/18 21:15 02/10/18 21:30 02/10/18 21:45 Temperature Pulse Rate 78 79 75 Respiratory Rate 37 H 27 H 26 H Blood Pressure 83/55 L 85/55 L 83/54 L Pulse Oximetry 100 100 100 02/10/18 22:00 02/10/18 22:15 02/10/18 22:30 Temperature Pulse Rate 75 74 74 Respiratory Rate 28 H 14 11 L Blood Pressure 87/55 L 88/57 L 88/55 L Pulse Oximetry 100 100 100 02/10/18 22:45 02/10/18 23:00 02/10/18 23:15 Temperature Pulse Rate 74 73 73 Respiratory Rate 10 L 4 L 6 L Blood Pressure 89/56 L 89/54 L 89/56 L Pulse Oximetry 100 100 100 02/10/18 23:30 02/10/18 23:41 02/10/18 23:45 Temperature Pulse Rate 73 73 Respiratory Rate 23 25 H 13 Blood Pressure 89/55 L 89/56 L Pulse Oximetry 100 100 100 02/11/18 00:00 02/11/18 00:15 02/11/18 00:30 Temperature Pulse Rate 73 71 71 Respiratory Rate 3 L 27 H 26 H Blood Pressure 90/55 L 87/56 L 88/56 L Pulse Oximetry 100 100 100 02/11/18 00:45 02/11/18 01:00 02/11/18 01:15 Temperature Pulse Rate 71 73 71 Respiratory Rate 26 H 28 H 26 H Blood Pressure 78/51 L 77/50 L 95/59 L Pulse Oximetry 100 99 100 02/11/18 01:30 02/11/18 01:45 02/11/18 02:00 Temperature Pulse Rate 69 70 70 Respiratory Rate 26 H 26 H 26 H Blood Pressure 94/59 L 93/59 L 93/60 L Pulse Oximetry 100 100 100 02/11/18 02:15 02/11/18 02:16 02/11/18 02:30 Temperature Pulse Rate 71 71 Respiratory Rate 29 H 26 H 27 H Blood Pressure 94/58 L 93/58 L Pulse Oximetry 100 100 100 02/11/18 02:45 02/11/18 03:00 02/11/18 03:15 Temperature Pulse Rate 71 70 73 Respiratory Rate 26 H 27 H 27 H Blood Pressure 92/58 L 93/57 L 89/55 L Pulse Oximetry 100 99 100 02/11/18 03:30 02/11/18 03:45 02/11/18 04:00 Temperature Pulse Rate 71 69 70 Respiratory Rate 27 H 32 H 25 H Blood Pressure 93/59 L 105/63 91/57 L Pulse Oximetry 100 100 99 02/11/18 04:09 02/11/18 04:15 02/11/18 04:30 Temperature Pulse Rate 71 71 Respiratory Rate 24 32 H 29 H Blood Pressure 83/50 L 74/46 L Pulse Oximetry 100 100 100 02/11/18 04:46 02/11/18 05:00 02/11/18 05:15 Temperature Pulse Rate 69 70 70 Respiratory Rate 32 H 47 H 43 H Blood Pressure 76/50 L 88/53 L 90/56 L Pulse Oximetry 98 98 100 02/11/18 05:30 02/11/18 05:45 02/11/18 06:00 Temperature Pulse Rate 67 70 70 Respiratory Rate 47 H 11 L 10 L Blood Pressure 106/61 90/51 L 91/52 L Pulse Oximetry 100 100 100 02/11/18 06:15 02/11/18 07:00 Temperature Pulse Rate 70 68 Respiratory Rate 18 18 Blood Pressure 92/54 L 90/54 L Pulse Oximetry 99 99 Intake & Output 02/10/18 02/11/18 02/11/18 18:59 06:59 18:59 Intake Total 2450 / 2450 6000 / 6000 Output Total 800 / 800 Balance 2450 / 2450 5200 / 5200 Weight 58.967 kg 80.5 kg Intake: IV 2450 / 2450 6000 / 6000 Sodium Bicarbonate 8.4% Inj 100 100 / 100 ML @ 0 mls/hr .ROUTE .STK-MED ONE Rx#:[id number] Precedex Inj 1,000 MCG In NS 250 / 250 Inj 240 ML @ 0.2 MCG/KG/HR 2.94 mls/hr IV.CONT TITRATE PRN Rx# :[id number] Precedex Inj 200 MCG In NS Inj 100 / 100 50 / 50 48 ML @ 0.2 MCG/KG/HR 2.94 mls/ hr IV.CONT TITRATE PRN Rx#: [id number] D5W/1/2NS + KCL 20 mEq Inj 1999 / 1999 000 ML @ 125 mls/hr IV.CONT . Q8H MARICRUZ Rx#:[id number] Diprivan 1000 mg/100 ml Inj 1, 300 / 300 000 mg In 100 ml @ 5 MCG/KG/MIN 1.769 mls/hr IV.CONT TITRATE PRN Rx#:[id number] Ofirmev Inj 1,000 mg In 100 ml 100 / 100 @ 400 mls/hr IV.SIG Q6H PRN Rx# :[id number] Alburx 5% Inj 500 ML @ 250 mls/ 500 / 500 hr IV.SIG ONCE ONE Rx#:[id number] Levophed-Dextrose 4 mg/250 ml 250 / 250 Drip 4 mg In 250 ml @ 2 MCG/MIN 7.5 mls/hr IV.SIG TITRATE PRN Rx#:[id number] Zosyn 2.25 GM Premix 50 ML @ 150 / 150 100 mls/hr IV.SIG Q6H MARICRUZ Rx#: [id number] Zosyn 3.375 GM Premix 50 ML @ 50 / 50 100 mls/hr IV.SIG ONCE ONE Rx#: [id number] KCl 20 mEq Premix Inj 20 meq In 100 / 100 100 ml @ 50 mls/hr IV.SIG ONCE ONE Rx#:[id number] NS Inj 1,000 ML @ 1000 mls/hr 1999 IV.SIG BOLUS MARICRUZ Rx#:[id number] Vancomycin Inj 1,000 MG In NS 250 / 250 250 / 250 Inj 250 ML @ 250 mls/hr IV.SIG Q18H MARICRUZ Rx#:[id number] Oral 0 / 0 Output: Urine Amount (Catheter) 800 / 800 Indwelling Urethral Catheter 800 / 800 Other: Date of Last Bowel Movement 02/10/18 # Bowel Movements 1 Result Diagrams: 02/11/18 03:40 02/11/18 03:40 Objective Remarks: - Constitutional Intubated heavily sedated critically ill tachypneic hypotensive - Routine HEENT Exam Head: Present: normocephalic Eye: PERRL ENT: mucous membranes dry, orotracheally intubated - Routine Neck Exam Present: supple, full ROM, trachea midline - Routine Respiratory Exam Present: On PRVC/AC. Remains tachypneic on the vent basilar crackles - Routine Cardiovascular Exam Present: RRR, S2, tachycardia. Hypotensive. No murmur heard - Routine Abdominal Exam Present: soft nontender no organomegaly - Routine Extremities Exam Present: normal capillary refill (Multiple needle cantu on upper and lower extremity) - Routine Skin Exam Present: intact, dry, warm - Routine Neurological Exam Present: Patient remains intubated sedated for vent synchrony. Pupils are reactive. At this time patient does not follow commands or moves extremities spontaneously Assessment and Plan - Assessment and Plan Plan: Assessment This is a 32-year-old female with a history of IV drug abuse of heroin reported per currently an acute drug withdrawal, as well as sepsis. The patient in respiratory distress tachypneic with extreme rigors and elevated temperature required emergent intubation. The patient is critically ill admit to ICU. 2D echo showed a suspected aortic valve vegetation with moderate AR Plan by systems: Neurologic: IV drug abuse-heroin Acute opioid withdrawal Elevated temperature Metabolic encephalopathy Neuro checks per ICU protocol Daily sedation vacation if tolerated Sedated with propofol and Precedex infusion Avoid narcotics Clonidine 0.1 mg 3 times daily via NG tube Provide Versed 2 mg every 4 hours as needed for anxiety or agitation Ofirmev 1 g every 6 hours as needed for temperature greater than 101.0 x 48 hours then utilized Tylenol by NG tube 650 mg every 6 hours as needed Apply cooling blanket as needed Respiratory: Acute respiratory failure Left lower lobe infiltrate/pneumonia 02/10 patient intubated 7.5 ETT at 22 cm at the lip for airway protection and adequate ventilation ABGs post intubation 7.27/ 40 / 93/19/-6 Chest x-ray shows left lower lobe infiltrate DuoNeb every 6 hours scheduled and as needed Sputum culture ordered, broad-spectrum antibiotics with vancomycin and Zosyn Cardiovascular: Septic shock Aortic regurgitation Aortic vegetation Elevated troponin ? Coronary artery emboli Currently on Levophed at 11 mcg/min for septic shock Add vasopressin Initial troponin VII 0.29, follow-up serial troponin TTEcho-EF 55percent, moderate aortic regurgitation, mild MR, mild TR, small pericardial effusion, vegetation aortic valve, PASP [address] Ham following. Discussed with Dr. 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 Electrolyte replacement per ICU protocol Maintain n.p.o. status for now MIVF D5 half-normal saline with 20 KCl Zofran for nausea Famotidine for GI prophylax Apply fecal containment device consider Imodium Hepatitis panel Albumin 2.0-maintain n.p.o. status for now Monitor LFT's s/p 100 mEq of sodium bicarb IV Heme/ID: Sepsis Possible endocarditis secondary to IVDA Lactic acidemia Bandemia Patient received vancomycin and Zosyn in the emergency room Continue vancomycin and Zosyn Follow-up blood culture, GPC in 1 bottle Obtain urine culture, sputum culture Consult ID Trend serial lactate levels Monitor CBC Endocrine: Glucose monitoring per ICU protocol -- SSI Prophylaxis: GI Prophylaxis Famotidine DVT Prophylaxis -- SCDs Heparin 5000 units twice daily Lines: Peripheral IVs x2. Secondary to IVDA patient has difficult access for obtainment of labs and monitoring. Left IJ placed for central venous access 02/10 Dispo: My billing statement This patient remains critically ill with one or more organ systems which are or may become a threat to life. I have spent in excess of 40 minutes discontinuously in the care and management of this patient. This time is exclusive of procedures, and includes, but is not limited to, evaluation of the patient, review of the medical record, discussions with family, consultants, nursing staff, or respiratory therapy, and documentation in the medical record. Patient is very critical currently requiring ventilatory support and pressors. Worsening septic shock. Prognosis remains guarded with aortic valve vegetation and regurgitation. Unfortunately not a candidate for cardiothoracic surgery for AVR due to active drug use
[2018-02-11] MEDS: Famotidine PF Inj 20 MG/2 ML Vial IV.PUSH SCH ×2 (08:47→20:56)
[2018-02-11] MEDS: Heparin - SQ 10,000 UNITS/ML Vial SQ SCH ×2 (08:47→20:56)
[2018-02-11] MEDS: Sod Chloride 0.9% Inj 1,000 ML IV.SIG SCH ×2 (09:00→10:09)
--- NOTE | 2018-02-11 09:01 | XR ---
EXAM DATE: 02/11/2018 8:55 AM EST AGE/SEX: 32 years / Female INDICATIONS: Respiratory disease. CLINICAL DATA: This is the patient's subsequent encounter. Patient reports that signs and symptoms h ave been present for 2 days and indicates a pain score of Nonresponsive. MEDICAL/SURGICAL HISTORY: None. None. [place] [facility] [place]. . FINDINGS: Heart remains moderately enlarged. Persistent basilar airspace disease with significant consolidation on the left is noted. Small bilateral effusions are suspected. There is been interval advancement of the nasogastric tube which is in good position. Endotracheal tube remains in stable position. Left jugular central venous catheter has been pulled ba ck into the brachiocephalic junction. CONCLUSION: Persistent bibasilar airspace disease with significant consolidation in the left base. Additional support devices as described. No significant improvement compared to prior study. Electronically signed by: Vinny Wheeler MD 02/11/2018 9:00 AM EST
--- NOTE | 2018-02-11 09:47 | P.PNCA ---
Subjective Interval history: On vent unresponsive Medications and Allergies Active Medications: Active Medications Acetaminophen (Tylenol) 650 mg PO Q6H PRN PRN Reason: PAIN 1-10 AND/OR FEVER >101F Al Hydroxide/Mg Hydroxide (Milk Of Ame Liteo) 30 ml PO Q12H PRN PRN Reason: Mild Constipation Albuterol (Duoneb Neb (Prn)) 1 ampul NEB Q2HR NEB PRN PRN Reason: WHEEZING Albuterol (Duoneb Neb (Kathleen)) 1 ampul NEB Q6HR NEB [facility] Bisacodyl (Dulcolax Supp) 10 mg RECTAL DAILY PRN PRN Reason: SEVERE CONSITIPATION Chlorhexidine Gluconate (Chlorhexidine 2% Cloth) 3 pack TOPICAL DAILY@0400 [facility] Stop: 02/16/18 03:59 Last Admin: 02/11/18 04:11 Dose: 3 pack Chlorhexidine Gluconate (Chlorhexidine 2% Cloth) 3 pack TOPICAL DAILY@0400 PRN PRN Reason: Extra cloth needed Stop: 02/16/18 03:59 Dextrose (D50w Vial) 50 ml IV.PUSH UNSCH PRN PRN Reason: PER HYPOGLYCEMIA PROTOCOL Famotidine (Pepcid Pf Inj) 20 mg IV.PUSH Q12HR [facility] Last Admin: 02/11/18 08:47 Dose: 20 mg Glucagon (Glucagon Inj) 1 mg OTHER PRN PRN PRN Reason: for Hypoglycemia Protocol Heparin Sodium (Porcine) (Heparin Inj) 5,000 units SQ Q12HR [facility] Last Admin: 02/11/18 08:47 Dose: 5,000 units Potassium Chloride/Dextrose/Sod Cl (D5w/1/2ns + Kcl 20 Meq Inj) 1,000 mls @ 125 mls/hr IV.CONT .Q8H [facility] Last Admin: 02/11/18 05:25 Dose: 100 mls/hr Vancomycin HCl 1,000 mg/ (Sodium Chloride) 250 mls @ 250 mls/hr IV.SIG Q18H [facility] Last Infusion: 02/11/18 04:45 Dose: Infused Acetaminophen (Ofirmev Inj) 1,000 mg in 100 mls @ 400 mls/hr IV.SIG Q6H PRN PRN Reason: PAIN SCALE 1 TO 10 Stop: 02/12/18 23:59 Last Infusion: 02/10/18 16:57 Dose: Infused Propofol (Diprivan 1000 Mg/100 Ml Inj) 1,000 mg in 100 mls @ 1.769 mls/hr IV.CONT TITRATE PRN; Protocol PRN Reason: Per Protocol Last Admin: 02/11/18 05:25 Dose: 50 mcg/kg/min, 17.69 mls/hr Norepinephrine Bitartrate (Levophed-Dextrose 4 Mg/250 Ml Drip) 4 mg in 250 mls @ 7.5 mls/hr IV.SIG TITRATE PRN; Protocol PRN Reason: Per Protocol Last Admin: 02/11/18 03:15 Dose: 10 mcg/min, 37.5 mls/hr Dexmedetomidine HCl 1,000 mcg/ (Sodium Chloride) 250 mls @ 2.94 mls/hr IV.CONT TITRATE PRN; Protocol PRN Reason: Per Protocol Last Admin: 02/11/18 05:29 Dose: 1.5 mcg/kg/hr, 22.11 mls/hr Sodium Chloride (Ns Inj) 1,000 mls @ 2,000 mls/hr IV.SIG Q30M KATHLEEN Stop: 02/11/18 09:59 Vasopressin 40 unit/ Sodium (Chloride) 100 mls @ 6 mls/hr IV.CONT CONT KATHLEEN; Protocol Piperacillin/Tazobactam/Dextrose (Zosyn 3.375 Gm Premix) 50 mls @ 100 mls/hr IV.SIG Q6H KATHLEEN Insulin Aspart (Novolog Insulin Correctional Sugar Inj) 0 unit SQ ACHS AND 3AM KATHLEEN; Protocol Last Admin: 02/11/18 03:40 Dose: 1 unit Lactulose (Lactulose Liq) 30 ml PO DAILY PRN PRN Reason: SEVERE CONSITIPATION Midazolam HCl (Versed Inj) 2 mg IV.PUSH Q4H PRN PRN Reason: AGITATION AND/OR HALLUCINATION Last Admin: 02/10/18 15:06 Dose: 2 mg Miscellaneous Information ([facility] [place]dered Lab Info) 0 each OTHER ONCE ONE Stop: 02/12/18 15:46 Ondansetron HCl (Zofran Inj) 4 mg IV.PUSH Q6H PRN PRN Reason: NAUSEA OR VOMITING Pharmacy Profile Note (Vancomycin Consult Pharmacy) 1 each OTHER UNSCH PRN PRN Reason: Pharmacy to dose Sennosides (Senokot) 17.2 mg PO Q12H PRN PRN Reason: Moderate Constipation Sodium Chloride (Ns Flush) 2 ml IV.FLUSH BID KATHLEEN Last Admin: 02/11/18 08:48 Dose: 2 ml Sodium Chloride (Ns Flush) 2 ml IV.FLUSH PRN PRN PRN Reason: FLUSH AFTER USING IV ACCESS Terbutaline Sulfate (Brethine Inj) 1 mg SQ UNSCH PRN PRN Reason: For Extravasation Allergies Allergy/AdvReac Type Severity Reaction Status Date / Time *MDRO Multi-Drug Resistant Allergy Unknown Uncoded 09/04/13 13:15 Organism Home Medications Medication Instructions Recorded Confirmed Type Unable to Obtain Home Meds 02/10/18 02/10/18 History Physical Exam Vital signs: Vital Signs 02/10/18 10:47 02/10/18 11:37 02/10/18 12:00 Temperature Pulse Rate 134 H 137 H 134 H Respiratory Rate 50 H 50 H 48 H Blood Pressure 185/93 H 127/86 156/66 H Pulse Oximetry 96 96 02/10/18 12:30 02/10/18 13:06 02/10/18 13:16 Temperature 103.1 F H Pulse Rate 143 H 122 H Respiratory Rate 55 H 18 45 H Blood Pressure 112/58 L 156/56 H Pulse Oximetry 95 97 100 02/10/18 13:18 02/10/18 13:20 02/10/18 13:22 Temperature Pulse Rate 125 H 132 H 132 H Respiratory Rate 60 H 67 H 24 Blood Pressure 163/72 H 173/70 H 175/70 H Pulse Oximetry 97 97 96 02/10/18 13:24 02/10/18 13:28 02/10/18 13:30 Temperature Pulse Rate 132 H 134 H 136 H Respiratory Rate 13 19 19 Blood Pressure 178/72 H 174/75 H 170/74 H Pulse Oximetry 96 95 96 02/10/18 13:32 02/10/18 13:34 02/10/18 13:36 Temperature Pulse Rate 134 H 135 H 134 H Respiratory Rate 18 18 20 Blood Pressure 171/64 H 166/73 H 171/76 H Pulse Oximetry 96 95 95 02/10/18 13:38 02/10/18 13:40 02/10/18 13:42 Temperature Pulse Rate 135 H 139 H 137 H Respiratory Rate 31 H 25 H 53 H Blood Pressure 165/73 H 167/74 H 160/71 H Pulse Oximetry 95 95 95 02/10/18 13:44 02/10/18 13:46 02/10/18 13:48 Temperature Pulse Rate 135 H 137 H 135 H Respiratory Rate 64 H 24 20 Blood Pressure 160/70 H 167/72 H 161/70 H Pulse Oximetry 95 95 95 02/10/18 13:50 02/10/18 13:52 02/10/18 13:54 Temperature Pulse Rate 133 H 134 H 135 H Respiratory Rate 51 H 27 H 25 H Blood Pressure 154/67 H 161/70 H 160/69 H Pulse Oximetry 95 96 96 02/10/18 13:56 02/10/18 13:58 02/10/18 14:00 Temperature Pulse Rate 134 H 132 H 134 H Respiratory Rate 28 H 92 H 67 H Blood Pressure 156/58 H 153/67 H 152/69 H Pulse Oximetry 96 95 95 02/10/18 14:02 02/10/18 14:04 02/10/18 14:06 Temperature Pulse Rate 133 H 131 H 128 H Respiratory Rate 57 H 47 H 57 H Blood Pressure 152/68 H 147/66 H 147/65 H Pulse Oximetry 95 95 96 02/10/18 14:08 02/10/18 14:10 02/10/18 14:12 Temperature Pulse Rate 127 H 126 H 126 H Respiratory Rate 64 H 87 H 72 H Blood Pressure 145/64 H 144/64 H 143/64 H Pulse Oximetry 96 96 96 02/10/18 14:14 02/10/18 14:15 02/10/18 14:30 Temperature Pulse Rate 127 H 128 H 135 H Respiratory Rate 80 H 98 H 47 H Blood Pressure 149/66 H 149/65 H 166/76 H Pulse Oximetry 96 96 96 02/10/18 14:45 02/10/18 15:00 02/10/18 15:15 Temperature Pulse Rate 134 H 124 H 119 H Respiratory Rate 39 H 52 H 55 H Blood Pressure 169/74 H 168/77 H 153/67 H Pulse Oximetry 95 95 96 02/10/18 15:30 02/10/18 15:37 02/10/18 15:45 Temperature 99.1 F Pulse Rate 114 H 114 H Respiratory Rate 32 H 32 H 36 H Blood Pressure 140/63 124/63 Pulse Oximetry 99 98 97 02/10/18 16:00 02/10/18 16:15 02/10/18 16:30 Temperature 99.1 F Pulse Rate 111 H 111 H 112 H Respiratory Rate 36 H 38 H 32 H Blood Pressure 120/58 L 110/58 L 120/60 Pulse Oximetry 100 99 100 02/10/18 16:45 02/10/18 17:00 02/10/18 17:15 Temperature Pulse Rate 115 H 110 H 109 H Respiratory Rate 35 H 26 H 41 H Blood Pressure 115/65 96/50 L 98/54 L Pulse Oximetry 100 100 100 02/10/18 17:30 02/10/18 17:45 02/10/18 18:00 Temperature Pulse Rate 109 H 111 H 112 H Respiratory Rate 35 H 34 H 33 H Blood Pressure 102/58 L 104/56 L 110/57 L Pulse Oximetry 100 100 100 02/10/18 18:15 02/10/18 18:30 02/10/18 18:45 Temperature Pulse Rate 112 H 114 H 113 H Respiratory Rate 33 H 34 H 32 H Blood Pressure 105/57 L 107/57 L 101/58 L Pulse Oximetry 100 100 100 02/10/18 19:00 02/10/18 19:15 02/10/18 19:30 Temperature Pulse Rate 115 H 112 H 108 H Respiratory Rate 34 H 35 H 32 H Blood Pressure 102/56 L 97/53 L 85/45 L Pulse Oximetry 100 100 100 02/10/18 19:48 02/10/18 19:49 02/10/18 19:52 Temperature Pulse Rate 98 H 98 H 93 H Respiratory Rate 49 H 65 H 71 H Blood Pressure 64/37 L 67/43 L Pulse Oximetry 100 100 100 02/10/18 19:57 02/10/18 20:00 02/10/18 20:06 Temperature Pulse Rate 92 H 92 H 96 H Respiratory Rate 35 H 34 H 66 H Blood Pressure 72/49 L 76/51 L 65/39 L Pulse Oximetry 100 100 100 02/10/18 20:10 02/10/18 20:13 02/10/18 20:15 Temperature Pulse Rate 90 86 86 Respiratory Rate 70 H 69 H 52 H Blood Pressure 77/53 L 83/55 L 85/55 L Pulse Oximetry 100 100 99 02/10/18 20:30 02/10/18 20:34 02/10/18 20:45 Temperature Pulse Rate 85 82 Respiratory Rate 42 H 34 H 41 H Blood Pressure 86/56 L 86/54 L Pulse Oximetry 100 100 100 02/10/18 21:00 02/10/18 21:15 02/10/18 21:30 Temperature Pulse Rate 80 78 79 Respiratory Rate 43 H 37 H 27 H Blood Pressure 84/55 L 83/55 L 85/55 L Pulse Oximetry 99 100 100 02/10/18 21:45 02/10/18 22:00 02/10/18 22:15 Temperature Pulse Rate 75 75 74 Respiratory Rate 26 H 28 H 14 Blood Pressure 83/54 L 87/55 L 88/57 L Pulse Oximetry 100 100 100 02/10/18 22:30 02/10/18 22:45 02/10/18 23:00 Temperature Pulse Rate 74 74 73 Respiratory Rate 11 L 10 L 4 L Blood Pressure 88/55 L 89/56 L 89/54 L Pulse Oximetry 100 100 100 02/10/18 23:15 02/10/18 23:30 02/10/18 23:41 Temperature Pulse Rate 73 73 Respiratory Rate 6 L 23 25 H Blood Pressure 89/56 L 89/55 L Pulse Oximetry 100 100 100 02/10/18 23:45 02/11/18 00:00 02/11/18 00:15 Temperature Pulse Rate 73 73 71 Respiratory Rate 13 3 L 27 H Blood Pressure 89/56 L 90/55 L 87/56 L Pulse Oximetry 100 100 100 02/11/18 00:30 02/11/18 00:45 02/11/18 01:00 Temperature Pulse Rate 71 71 73 Respiratory Rate 26 H 26 H 28 H Blood Pressure 88/56 L 78/51 L 77/50 L Pulse Oximetry 100 100 99 02/11/18 01:15 02/11/18 01:30 02/11/18 01:45 Temperature Pulse Rate 71 69 70 Respiratory Rate 26 H 26 H 26 H Blood Pressure 95/59 L 94/59 L 93/59 L Pulse Oximetry 100 100 100 02/11/18 02:00 02/11/18 02:15 02/11/18 02:16 Temperature Pulse Rate 70 71 Respiratory Rate 26 H 29 H 26 H Blood Pressure 93/60 L 94/58 L Pulse Oximetry 100 100 100 02/11/18 02:30 02/11/18 02:45 02/11/18 03:00 Temperature Pulse Rate 71 71 70 Respiratory Rate 27 H 26 H 27 H Blood Pressure 93/58 L 92/58 L 93/57 L Pulse Oximetry 100 100 99 02/11/18 03:15 02/11/18 03:30 02/11/18 03:45 Temperature Pulse Rate 73 71 69 Respiratory Rate 27 H 27 H 32 H Blood Pressure 89/55 L 93/59 L 105/63 Pulse Oximetry 100 100 100 02/11/18 04:00 02/11/18 04:09 02/11/18 04:15 Temperature Pulse Rate 70 71 Respiratory Rate 25 H 24 32 H Blood Pressure 91/57 L 83/50 L Pulse Oximetry 99 100 100 02/11/18 04:30 02/11/18 04:46 02/11/18 05:00 Temperature Pulse Rate 71 69 70 Respiratory Rate 29 H 32 H 47 H Blood Pressure 74/46 L 76/50 L 88/53 L Pulse Oximetry 100 98 98 02/11/18 05:15 02/11/18 05:30 02/11/18 05:45 Temperature Pulse Rate 70 67 70 Respiratory Rate 43 H 47 H 11 L Blood Pressure 90/56 L 106/61 90/51 L Pulse Oximetry 100 100 100 02/11/18 06:00 02/11/18 06:15 02/11/18 07:00 Temperature Pulse Rate 70 70 68 Respiratory Rate 10 L 18 18 Blood Pressure 91/52 L 92/54 L 90/54 L Pulse Oximetry 100 99 99 02/11/18 08:48 Temperature Pulse Rate Respiratory Rate 34 H Blood Pressure Pulse Oximetry 99 Intake & Output 02/10/18 02/11/18 02/11/18 18:59 06:59 18:59 Intake Total 2450 / 2450 6000 / 6000 Output Total 800 / 800 Balance 2450 / 2450 5200 / 5200 Weight 58.967 kg 80.5 kg Intake: IV 2450 / 2450 6000 / 6000 Sodium Bicarbonate 8.4% Inj 100 100 / 100 ML @ 0 mls/hr .ROUTE .STK-MED ONE Rx#:[id number] Precedex Inj 1,000 MCG In NS 250 / 250 Inj 240 ML @ 0.2 MCG/KG/HR 2.94 mls/hr IV.CONT TITRATE PRN Rx# :[id number] Precedex Inj 200 MCG In NS Inj 100 / 100 50 / 50 48 ML @ 0.2 MCG/KG/HR 2.94 mls/ hr IV.CONT TITRATE PRN Rx#: [id number] D5W/1/2NS + KCL 20 mEq Inj 1999 / 1999 000 ML @ 125 mls/hr IV.CONT . Q8H KATHLEEN Rx#:[id number] Diprivan 1000 mg/100 ml Inj 1, 300 / 300 000 mg In 100 ml @ 5 MCG/KG/MIN 1.769 mls/hr IV.CONT TITRATE PRN Rx#:[id number] Ofirmev Inj 1,000 mg In 100 ml 100 / 100 @ 400 mls/hr IV.SIG Q6H PRN Rx# :[id number] Alburx 5% Inj 500 ML @ 250 mls/ 500 / 500 hr IV.SIG ONCE ONE Rx#:[id number] Levophed-Dextrose 4 mg/250 ml 250 / 250 Drip 4 mg In 250 ml @ 2 MCG/MIN 7.5 mls/hr IV.SIG TITRATE PRN Rx#:[id number] Zosyn 2.25 GM Premix 50 ML @ 150 / 150 100 mls/hr IV.SIG Q6H KAHTLEEN Rx#: [id number] Zosyn 3.375 GM Premix 50 ML @ 50 / 50 100 mls/hr IV.SIG ONCE ONE Rx#: [id number] KCl 20 mEq Premix Inj 20 meq In 100 / 100 100 ml @ 50 mls/hr IV.SIG ONCE ONE Rx#:[id number] NS Inj 1,000 ML @ 1000 mls/hr 1999 / 1999 IV.SIG BOLUS KATHLEEN Rx#:[id number] Vancomycin Inj 1,000 MG In NS 250 / 250 250 / 250 Inj 250 ML @ 250 mls/hr IV.SIG Q18H [facility] Rx#:[id number] Oral 0 / 0 Output: Urine Amount (Catheter) 800 / 800 Indwelling Urethral Catheter 800 / 800 Other: Date of Last Bowel Movement 02/10/18 # Bowel Movements 1 Narrative: On vent, sedation currently held and not responding to sternal rub No JVD Chest few basilar crackles CV S1S2 RRR, no murmur abd soft ext: no edema - Urinary Catheter Management Indwelling Urethral Catheter Cath placed during this visit: yes Reason for continuing: Acute urinary retention Insertion date: 02/10/18 Insertion time: 13:30 Results 02/11/18 03:40 02/11/18 03:40 Cardiac Enzymes 02/10/18 02/10/18 02/10/18 Range/Units 09:31 09:31 11:21 AST 346 H (15-37) U/L CK-MB (CK-2) 9.5 H (0.5-3.6) ng/mL Troponin I 7.29 H* (0.02-0.05) ng/mL 02/11/18 Range/Units 03:40 AST 597 H (15-37) U/L CK-MB (CK-2) (0.5-3.6) ng/mL Troponin I (0.02-0.05) ng/mL Coagulation 02/10/18 02/11/18 Range/Units 09:50 03:40 PT 14.8 H 15.4 H (9.8-11.6) sec APTT 33.1 H (23.4-31.7) sec CBC 02/10/18 02/11/18 Range/Units 09:31 03:40 WBC 26.6 H 20.1 H (4.0-11.0) th/mm3 RBC 3.54 L 2.83 L (4.00-5.30) mil/mm3 Hgb 9.7 L 8.0 L (11.6-15.3) gm/dL Hct 30.4 L 23.9 L (35.0-46.0) % Plt Count 212 142 L D (150-450) th/mm3 Neut # (Auto) 24.7 H 17.4 H (1.8-7.7) th/mm3 Lymph # (Auto) 0.3 L 1.0 (1.0-4.8) th/mm3 [place] # (Auto) 1.5 H 1.6 H (0.0-0.9) th/mm3 Eos # (Auto) 0.0 0.1 (0.0-0.4) th/mm3 Baso # (Auto) 0.1 0.1 (0.0-0.2) th/mm3 Comprehensive Metabolic Panel 02/10/18 02/11/18 Range/Units 09:31 03:40 Sodium 125 L 133 L (136-145) meq/L Potassium 3.2 L 3.8 (3.5-5.1) meq/L Chloride 93 L 102 D (98-107) meq/L Carbon Dioxide 20.0 L 21.9 (21.0-32.0) meq/L BUN 21 H 25 H (7-18) mg/dL Creatinine 1.35 H 1.43 H (0.50-1.00) mg/dL Calcium 8.0 L 7.0 L* D (8.5-10.1) mg/dL AST 346 H 597 H (15-37) U/L ALT 173 H 272 H (10-53) U/L Alkaline Phosphatase 197 H 126 H (45-117) U/L Total Protein 7.5 6.0 L D (6.4-8.2) g/dL Albumin 2.0 L 1.8 L (3.4-5.0) g/dL Intake and Output 02/10/18 02/11/18 02/11/18 22:59 06:59 14:59 Intake Total 3650 / 3650 2550 / 2550 Output Total 800 / 800 Balance 3650 / 3650 1750 / 1750 Intake: IV 3650 / 3650 2550 / 2550 Sodium Bicarbonate 8.4% Inj 100 100 / 100 ML @ 0 mls/hr .ROUTE .STK-MED ONE Rx#:[id number] Precedex Inj 1,000 MCG In NS 250 / 250 Inj 240 ML @ 0.2 MCG/KG/HR 2.94 mls/hr IV.CONT TITRATE PRN Rx# :[id number] Precedex Inj 200 MCG In NS Inj 150 / 150 48 ML @ 0.2 MCG/KG/HR 2.94 mls/ hr IV.CONT TITRATE PRN Rx#: [id number] D5W/1/2NS + KCL 20 mEq Inj 1, 1000 / 1000 1000 / 1000 000 ML @ 125 mls/hr IV.CONT . Q8H KATHLEEN Rx#:[id number] Diprivan 1000 mg/100 ml Inj 1, 100 / 100 200 / 200 000 mg In 100 ml @ 5 MCG/KG/MIN 1.769 mls/hr IV.CONT TITRATE PRN Rx#:[id number] Ofirmev Inj 1,000 mg In 100 ml 100 / 100 @ 400 mls/hr IV.SIG Q6H PRN Rx# :[id number] Alburx 5% Inj 500 ML @ 250 mls/ 500 / 500 hr IV.SIG ONCE ONE Rx#:[id number] Levophed-Dextrose 4 mg/250 ml 250 / 250 Drip 4 mg In 250 ml @ 2 MCG/MIN 7.5 mls/hr IV.SIG TITRATE PRN Rx#:[id number] Zosyn 2.25 GM Premix 50 ML @ 50 / 50 100 / 100 100 mls/hr IV.SIG Q6H KATHLEEN Rx#: [id number] Zosyn 3.375 GM Premix 50 ML @ 50 / 50 100 mls/hr IV.SIG ONCE ONE Rx#: [id number] KCl 20 mEq Premix Inj 20 meq In 100 / 100 100 ml @ 50 mls/hr IV.SIG ONCE ONE Rx#:[id number] NS Inj 1,000 ML @ 1000 mls/hr 2000 / 2000 IV.SIG BOLUS KATHLEEN Rx#:[id number] Vancomycin Inj 1,000 MG In NS 250 / 250 Inj 250 ML @ 250 mls/hr IV.SIG Q18H [facility] Rx#:[id number] Oral 0 / 0 Output: Urine Amount (Catheter) 800 / 800 Indwelling Urethral Catheter 800 / 800 Other: Date of Last Bowel Movement 02/10/18 02/10/18 # Bowel Movements 1 Weight 80.5 kg - Imaging and Cardiology Imaging: Impressions Chest X-Ray 02/10/18 09:43 CONCLUSION: 1. Platelike airspace disease at the lung bases bilaterally, presumably atelectasis. Differential considerations include pneumonia and aspiration in the appropriate clinical setting. Chest X-Ray 02/10/18 13:34 CONCLUSION: 1. Endotracheal tube in appropriate position with tip measuring 4.8 cm from the radha. 2. Left IJ central line distal tip in the SVC without pneumothorax. 3. The nasogastric tube should be advanced the stomach. 4. Stable bibasilar opacity. Chest X-Ray 02/11/18 08:31 CONCLUSION: Persistent bibasilar airspace disease with significant consolidation in the left base. Additional support devices as described. No significant improvement compared to prior study. Assessment and Plan - Assessment (1) Endocarditis Code(s): I38 - Endocarditis, valve unspecified Status: Acute (2) Aortic valve regurgitation Code(s): I35.1 - Nonrheumatic aortic (valve) insufficiency Status: Acute - Plan Severely septic. Plan ROSANNA to firm up diagnosis of suspected endocarditis. Dr. Prabhakar agrees. Mental status concerning for possible stroke.
--- NOTE | 2018-02-11 11:08 | ECHRPT ---
Indication: POSS SEPSIS, ENDOCARDITIS CONCLUSIONS Aortic valve endocarditis. BP: / HR: Rhythm: Technical Quality: Medications Complications There were no complications prior to, during or in recovery from the transesophag eal echocardiogram.. Proc. Components The ROSANNA probe was passed into the posterior pharynx , mid-esophagus, distal esoph nydia, and gastric fundus.. ROSANNA was performed at multiple levels.. The patient tolerated the procedu re well and there were no complications.. FINDINGS LEFT VENTRICLE Normal left ventricular size. Wall thickness is normal. The left ventricular systolic function is grossly normal on limited imaging. RIGHT VENTRICLE The right ventricular size is normal. The right ventricular systoilc function is normal. LEFT ATRIUM The left atrial size is normal. RIGHT ATRIUM The right atrial size is normal. ATRIAL APPENDAGES Normal left atrial appendage size with no evidence of thrombus formation. ATRIAL SEPTUM Normal atrial septal thickness without atrial level shunting by limited color doppler interrogation. AORTA The aortic root and proximal ascending aorta are normal in size on limited imaging. MITRAL VALVE Structurally normal mitral valve. No mitral valve stenosis or regurgitation. AORTIC VALVE Trileaflet aortic valve. [id number] vegetation mostly left cusp but right cusp too. No aortic root abce ss.mild- to-moderate aortic valve regurgitation. TRICUSPID VALVE Structurally normal tricuspid valve. No tricuspid valve stenosis or regurgitation. VESSELS The inferior vena cava is normal in size. PULMONARY VALVE Mild pulmonary valve regurgitation. PERICADIUM No pericardial effusion. Rubén Ham MD (Electronically Signed) Final Date:11 February 2018 11:08
[2018-02-11] MEDS: Piperacil/Tazo 3.375 GM Premix 50 ML IV.SIG SCH ×2 (12:03→18:36)
--- NOTE | 2018-02-11 13:10 | P.CONID ---
History of Present Illness Service: Infectious Disease Consult date: 02/11/18 Requesting Physician: Neha Burk Reason for Consult: Evaluation and Mment of Septic shock, Endocarditis. Primary Care Provider: No Primary Care Physician Chief Complaint: Drug withdrawal History of Present Illness: is a 32 y/o CF who presented to the ED at [place] with symptoms suggestive of drug withdrawal. The patient reported when awake in the ED that she is an IVDA per records and uses heroin and thought she was withdrawing. Patient was reportedly having rigors in ED. Patient showed signs of severe sepsis with lactic acid 4. Cardiology consulted and stat ECHO with Aortic valve vegetation. Critical care was consulted and patient admitted to the ICU. Patient has undergone a ROSANNA at this point which is positive for aortic valve vegetation. In the ED the patient was noted to be diaphoretic, tachycardic, copious diarrhea. Critical care medicine was consulted. Patient ended up getting intubated on 02/10/2018 for worsening resp failure and altered mentation. Patient has been noted to have LUE weakness and due to concern for Cerebral septic emboli patient is scheduled for a MRI brain today. At the time of my evaluation patient is in the ICU, currently intubated on vent with FIO2 40%, PEEP 5. Also on Levophed at 10 mics to maintain map at 65. Blood cultures and urine cultures on admission positive for Staph coag positive concerning for MSSA or MRSA ID pending. ID consulted for evaluation and Mment of severe sepsis. Review of Systems unobtainable due to endotracheal tube, unobtainable due to mental status PMFSH - History History Provided By: Patient - Tobacco History Second Hand Smoke Exposure: Yes Tobacco Use In Past 30 Days: Yes Smoking Status: Current every day smoker Tobacco Type: Cigarettes - Alcohol History How Often Do You Have a Drink Containing Alcohol: Never - Substance Use History Substance History: Active Abuse - Substance Use Type Heroin Status: Active Route Used: Intravenously Last Used: couple days ago Reason for Use: Calm Down, Curiosity, Feels Good - Travel History Recent Travel in the [place] Within the Last 8 Weeks: No Recent Travel Out of the Country Within the Last 8 Weeks: No - Immunization History Tetanus Immunization: <5 Years Medications and Allergies Active Medications: Active Medications Acetaminophen (Tylenol) 650 mg PO Q6H PRN PRN Reason: PAIN 1-10 AND/OR FEVER >101F Al Hydroxide/Mg Hydroxide (Milk Of Ame Sapp) 30 ml PO Q12H PRN PRN Reason: Mild Constipation Albuterol (Duoneb Neb (Prn)) 1 ampul NEB Q2HR NEB PRN PRN Reason: WHEEZING Albuterol (Duoneb Neb (Kathleen)) 1 ampul NEB Q6HR NEB KATHLEEN Bisacodyl (Dulcolax Supp) 10 mg RECTAL DAILY PRN PRN Reason: SEVERE CONSITIPATION Chlorhexidine Gluconate (Chlorhexidine 2% Cloth) 3 pack TOPICAL DAILY@0400 KATHLEEN Stop: 02/16/18 03:59 Last Admin: 02/11/18 04:11 Dose: 3 pack Chlorhexidine Gluconate (Chlorhexidine 2% Cloth) 3 pack TOPICAL DAILY@0400 PRN PRN Reason: Extra cloth needed Stop: 02/16/18 03:59 Dextrose (D50w Vial) 50 ml IV.PUSH UNSCH PRN PRN Reason: PER HYPOGLYCEMIA PROTOCOL Famotidine (Pepcid Pf Inj) 20 mg IV.PUSH Q12HR [facility] Last Admin: 02/11/18 08:47 Dose: 20 mg Glucagon (Glucagon Inj) 1 mg OTHER PRN PRN PRN Reason: for Hypoglycemia Protocol Heparin Sodium (Porcine) (Heparin Inj) 5,000 units SQ Q12HR [facility] Last Admin: 02/11/18 08:47 Dose: 5,000 units Potassium Chloride/Dextrose/Sod Cl (D5w/1/2ns + Kcl 20 Meq Inj) 1,000 mls @ 125 mls/hr IV.CONT .Q8H [facility] Last Admin: 02/11/18 05:25 Dose: 100 mls/hr Vancomycin HCl 1,000 mg/ (Sodium Chloride) 250 mls @ 250 mls/hr IV.SIG Q18H [facility] Last Infusion: 02/11/18 04:45 Dose: Infused Acetaminophen (Ofirmev Inj) 1,000 mg in 100 mls @ 400 mls/hr IV.SIG Q6H PRN PRN Reason: PAIN SCALE 1 TO 10 Stop: 02/12/18 23:59 Last Infusion: 02/10/18 16:57 Dose: Infused Propofol (Diprivan 1000 Mg/100 Ml Inj) 1,000 mg in 100 mls @ 1.769 mls/hr IV.CONT TITRATE PRN; Protocol PRN Reason: Per Protocol Last Admin: 02/11/18 13:00 Dose: 50 mcg/kg/min, 17.69 mls/hr Norepinephrine Bitartrate (Levophed-Dextrose 4 Mg/250 Ml Drip) 4 mg in 250 mls @ 7.5 mls/hr IV.SIG TITRATE PRN; Protocol PRN Reason: Per Protocol Last Admin: 02/11/18 10:10 Dose: 10 mcg/min, 37.5 mls/hr Dexmedetomidine HCl 1,000 mcg/ (Sodium Chloride) 250 mls @ 2.94 mls/hr IV.CONT TITRATE PRN; Protocol PRN Reason: Per Protocol Last Titration: 02/11/18 07:30 Dose: 0 mcg/kg/hr, 0 mls/hr Vasopressin 40 unit/ Sodium (Chloride) 100 mls @ 6 mls/hr IV.CONT CONT KATHLEEN; Protocol Piperacillin/Tazobactam/Dextrose (Zosyn 3.375 Gm Premix) 50 mls @ 100 mls/hr IV.SIG Q6H KATHLEEN Last Admin: 02/11/18 12:03 Dose: 100 mls/hr Insulin Aspart (Novolog Insulin Correctional Sugar Inj) 0 unit SQ ACHS AND 3AM KATHLEEN; Protocol Last Admin: 02/11/18 10:13 Dose: Not Given Lactulose (Lactulose Liq) 30 ml PO DAILY PRN PRN Reason: SEVERE CONSITIPATION Midazolam HCl (Versed Inj) 2 mg IV.PUSH Q4H PRN PRN Reason: AGITATION AND/OR HALLUCINATION Last Admin: 02/11/18 10:10 Dose: 2 mg Miscellaneous Information ([facility] Ordered Lab Info) 0 each OTHER ONCE ONE Stop: 02/12/18 15:46 Ondansetron HCl (Zofran Inj) 4 mg IV.PUSH Q6H PRN PRN Reason: NAUSEA OR VOMITING Pharmacy Profile Note (Vancomycin Consult Pharmacy) 1 each OTHER UNSCH PRN PRN Reason: Pharmacy to dose Sennosides (Senokot) 17.2 mg PO Q12H PRN PRN Reason: Moderate Constipation Sodium Chloride (Ns Flush) 2 ml IV.FLUSH BID KATHLEEN Last Admin: 02/11/18 08:48 Dose: 2 ml Sodium Chloride (Ns Flush) 2 ml IV.FLUSH PRN PRN PRN Reason: FLUSH AFTER USING IV ACCESS Terbutaline Sulfate (Brethine Inj) 1 mg SQ UNSCH PRN PRN Reason: For Extravasation Allergies Allergy/AdvReac Type Severity Reaction Status Date / Time *MDRO Multi-Drug Resistant Allergy Unknown Uncoded 09/04/13 13:15 Organism Home Medications Medication Instructions Recorded Confirmed Type Unable to Obtain Home Meds 02/10/18 02/10/18 History Exam Vital signs: Vital Signs 02/10/18 13:16 02/10/18 13:18 02/10/18 13:20 Temperature Pulse Rate 122 H 125 H 132 H Respiratory Rate 45 H 60 H 67 H Blood Pressure 156/56 H 163/72 H 173/70 H Pulse Oximetry 100 97 97 02/10/18 13:22 02/10/18 13:24 02/10/18 13:28 Temperature Pulse Rate 132 H 132 H 134 H Respiratory Rate 24 13 19 Blood Pressure 175/70 H 178/72 H 174/75 H Pulse Oximetry 96 96 95 02/10/18 13:30 02/10/18 13:32 02/10/18 13:34 Temperature Pulse Rate 136 H 134 H 135 H Respiratory Rate 19 18 18 Blood Pressure 170/74 H 171/64 H 166/73 H Pulse Oximetry 96 96 95 02/10/18 13:36 02/10/18 13:38 02/10/18 13:40 Temperature Pulse Rate 134 H 135 H 139 H Respiratory Rate 20 31 H 25 H Blood Pressure 171/76 H 165/73 H 167/74 H Pulse Oximetry 95 95 95 02/10/18 13:42 02/10/18 13:44 02/10/18 13:46 Temperature Pulse Rate 137 H 135 H 137 H Respiratory Rate 53 H 64 H 24 Blood Pressure 160/71 H 160/70 H 167/72 H Pulse Oximetry 95 95 95 02/10/18 13:48 02/10/18 13:50 02/10/18 13:52 Temperature Pulse Rate 135 H 133 H 134 H Respiratory Rate 20 51 H 27 H Blood Pressure 161/70 H 154/67 H 161/70 H Pulse Oximetry 95 95 96 02/10/18 13:54 02/10/18 13:56 02/10/18 13:58 Temperature Pulse Rate 135 H 134 H 132 H Respiratory Rate 25 H 28 H 92 H Blood Pressure 160/69 H 156/58 H 153/67 H Pulse Oximetry 96 96 95 02/10/18 14:00 02/10/18 14:02 02/10/18 14:04 Temperature Pulse Rate 134 H 133 H 131 H Respiratory Rate 67 H 57 H 47 H Blood Pressure 152/69 H 152/68 H 147/66 H Pulse Oximetry 95 95 95 02/10/18 14:06 02/10/18 14:08 02/10/18 14:10 Temperature Pulse Rate 128 H 127 H 126 H Respiratory Rate 57 H 64 H 87 H Blood Pressure 147/65 H 145/64 H 144/64 H Pulse Oximetry 96 96 96 02/10/18 14:12 02/10/18 14:14 02/10/18 14:15 Temperature Pulse Rate 126 H 127 H 128 H Respiratory Rate 72 H 80 H 98 H Blood Pressure 143/64 H 149/66 H 149/65 H Pulse Oximetry 96 96 96 02/10/18 14:30 02/10/18 14:45 02/10/18 15:00 Temperature Pulse Rate 135 H 134 H 124 H Respiratory Rate 47 H 39 H 52 H Blood Pressure 166/76 H 169/74 H 168/77 H Pulse Oximetry 96 95 95 02/10/18 15:15 02/10/18 15:30 02/10/18 15:37 Temperature Pulse Rate 119 H 114 H Respiratory Rate 55 H 32 H 32 H Blood Pressure 153/67 H 140/63 Pulse Oximetry 96 99 98 02/10/18 15:45 02/10/18 16:00 02/10/18 16:15 Temperature 99.1 F 99.1 F Pulse Rate 114 H 111 H 111 H Respiratory Rate 36 H 36 H 38 H Blood Pressure 124/63 120/58 L 110/58 L Pulse Oximetry 97 100 99 02/10/18 16:30 02/10/18 16:45 02/10/18 17:00 Temperature Pulse Rate 112 H 115 H 110 H Respiratory Rate 32 H 35 H 26 H Blood Pressure 120/60 115/65 96/50 L Pulse Oximetry 100 100 100 02/10/18 17:15 02/10/18 17:30 02/10/18 17:45 Temperature Pulse Rate 109 H 109 H 111 H Respiratory Rate 41 H 35 H 34 H Blood Pressure 98/54 L 102/58 L 104/56 L Pulse Oximetry 100 100 100 02/10/18 18:00 02/10/18 18:15 02/10/18 18:30 Temperature Pulse Rate 112 H 112 H 114 H Respiratory Rate 33 H 33 H 34 H Blood Pressure 110/57 L 105/57 L 107/57 L Pulse Oximetry 100 100 100 02/10/18 18:45 02/10/18 19:00 02/10/18 19:15 Temperature Pulse Rate 113 H 115 H 112 H Respiratory Rate 32 H 34 H 35 H Blood Pressure 101/58 L 102/56 L 97/53 L Pulse Oximetry 100 100 100 02/10/18 19:30 02/10/18 19:48 02/10/18 19:49 Temperature Pulse Rate 108 H 98 H 98 H Respiratory Rate 32 H 49 H 65 H Blood Pressure 85/45 L 64/37 L Pulse Oximetry 100 100 100 02/10/18 19:52 02/10/18 19:57 02/10/18 20:00 Temperature Pulse Rate 93 H 92 H 92 H Respiratory Rate 71 H 35 H 34 H Blood Pressure 67/43 L 72/49 L 76/51 L Pulse Oximetry 100 100 100 02/10/18 20:06 02/10/18 20:10 02/10/18 20:13 Temperature Pulse Rate 96 H 90 86 Respiratory Rate 66 H 70 H 69 H Blood Pressure 65/39 L 77/53 L 83/55 L Pulse Oximetry 100 100 100 02/10/18 20:15 02/10/18 20:30 02/10/18 20:34 Temperature Pulse Rate 86 85 Respiratory Rate 52 H 42 H 34 H Blood Pressure 85/55 L 86/56 L Pulse Oximetry 99 100 100 02/10/18 20:45 02/10/18 21:00 02/10/18 21:15 Temperature Pulse Rate 82 80 78 Respiratory Rate 41 H 43 H 37 H Blood Pressure 86/54 L 84/55 L 83/55 L Pulse Oximetry 100 99 100 02/10/18 21:30 02/10/18 21:45 02/10/18 22:00 Temperature Pulse Rate 79 75 75 Respiratory Rate 27 H 26 H 28 H Blood Pressure 85/55 L 83/54 L 87/55 L Pulse Oximetry 100 100 100 02/10/18 22:15 02/10/18 22:30 02/10/18 22:45 Temperature Pulse Rate 74 74 74 Respiratory Rate 14 11 L 10 L Blood Pressure 88/57 L 88/55 L 89/56 L Pulse Oximetry 100 100 100 02/10/18 23:00 02/10/18 23:15 02/10/18 23:30 Temperature Pulse Rate 73 73 73 Respiratory Rate 4 L 6 L 23 Blood Pressure 89/54 L 89/56 L 89/55 L Pulse Oximetry 100 100 100 02/10/18 23:41 02/10/18 23:45 02/11/18 00:00 Temperature Pulse Rate 73 73 Respiratory Rate 25 H 13 3 L Blood Pressure 89/56 L 90/55 L Pulse Oximetry 100 100 100 02/11/18 00:15 02/11/18 00:30 02/11/18 00:45 Temperature Pulse Rate 71 71 71 Respiratory Rate 27 H 26 H 26 H Blood Pressure 87/56 L 88/56 L 78/51 L Pulse Oximetry 100 100 100 02/11/18 01:00 02/11/18 01:15 02/11/18 01:30 Temperature Pulse Rate 73 71 69 Respiratory Rate 28 H 26 H 26 H Blood Pressure 77/50 L 95/59 L 94/59 L Pulse Oximetry 99 100 100 02/11/18 01:45 02/11/18 02:00 02/11/18 02:15 Temperature Pulse Rate 70 70 71 Respiratory Rate 26 H 26 H 29 H Blood Pressure 93/59 L 93/60 L 94/58 L Pulse Oximetry 100 100 100 02/11/18 02:16 02/11/18 02:30 02/11/18 02:45 Temperature Pulse Rate 71 71 Respiratory Rate 26 H 27 H 26 H Blood Pressure 93/58 L 92/58 L Pulse Oximetry 100 100 100 02/11/18 03:00 02/11/18 03:15 02/11/18 03:30 Temperature Pulse Rate 70 73 71 Respiratory Rate 27 H 27 H 27 H Blood Pressure 93/57 L 89/55 L 93/59 L Pulse Oximetry 99 100 100 02/11/18 03:45 02/11/18 04:00 02/11/18 04:09 Temperature Pulse Rate 69 70 Respiratory Rate 32 H 25 H 24 Blood Pressure 105/63 91/57 L Pulse Oximetry 100 99 100 02/11/18 04:15 02/11/18 04:30 02/11/18 04:46 Temperature Pulse Rate 71 71 69 Respiratory Rate 32 H 29 H 32 H Blood Pressure 83/50 L 74/46 L 76/50 L Pulse Oximetry 100 100 98 02/11/18 05:00 02/11/18 05:15 02/11/18 05:30 Temperature Pulse Rate 70 70 67 Respiratory Rate 47 H 43 H 47 H Blood Pressure 88/53 L 90/56 L 106/61 Pulse Oximetry 98 100 100 02/11/18 05:45 02/11/18 06:00 02/11/18 06:15 Temperature Pulse Rate 70 70 70 Respiratory Rate 11 L 10 L 18 Blood Pressure 90/51 L 91/52 L 92/54 L Pulse Oximetry 100 100 99 02/11/18 07:00 02/11/18 08:48 02/11/18 12:34 Temperature Pulse Rate 68 Respiratory Rate 18 34 H 23 Blood Pressure 90/54 L Pulse Oximetry 99 99 100 Intake & Output 02/10/18 02/11/18 02/11/18 18:59 06:59 18:59 Intake Total 2450 / 2450 6000 / 6000 450 / 450 Output Total 800 / 800 Balance 2450 / 2450 5200 / 5200 450 / 450 Weight 58.967 kg 80.5 kg Intake: IV 2450 / 2450 6000 / 6000 450 / 450 Sodium Bicarbonate 8.4% Inj 100 100 / 100 ML @ 0 mls/hr .ROUTE .STK-MED ONE Rx#:[id number] Precedex Inj 1,000 MCG In NS 250 / 250 Inj 240 ML @ 0.2 MCG/KG/HR 2.94 mls/hr IV.CONT TITRATE PRN Rx# :[id number] Precedex Inj 200 MCG In NS Inj 100 / 100 50 / 50 48 ML @ 0.2 MCG/KG/HR 2.94 mls/ hr IV.CONT TITRATE PRN Rx#: [id number] D5W/1/2NS + KCL 20 mEq Inj 1, 2000 / 2000 000 ML @ 125 mls/hr IV.CONT . Q8H KATHLEEN Rx#:[id number] Diprivan 1000 mg/100 ml Inj 1, 300 / 300 100 / 100 000 mg In 100 ml @ 5 MCG/KG/MIN 1.769 mls/hr IV.CONT TITRATE PRN Rx#:[id number] Ofirmev Inj 1,000 mg In 100 ml 100 / 100 @ 400 mls/hr IV.SIG Q6H PRN Rx# :[id number] Alburx 5% Inj 500 ML @ 250 mls/ 500 / 500 hr IV.SIG ONCE ONE Rx#:[id number] Levophed-Dextrose 4 mg/250 ml 250 / 250 250 / 250 Drip 4 mg In 250 ml @ 2 MCG/MIN 7.5 mls/hr IV.SIG TITRATE PRN Rx#:[id number] Zosyn 2.25 GM Premix 50 ML @ 150 / 150 100 mls/hr IV.SIG Q6H KATHLEEN Rx#: [id number] Zosyn 3.375 GM Premix 50 ML @ 50 / 50 100 mls/hr IV.SIG ONCE ONE Rx#: [id number] KCl 20 mEq Premix Inj 20 meq In 100 / 100 100 ml @ 50 mls/hr IV.SIG ONCE ONE Rx#:[id number] NS Inj 1,000 ML @ 2000 mls/hr 2000 / 2000 2000 / 2000 100 / 100 IV.SIG Q30M [facility] Rx#:[id number] Vancomycin Inj 1,000 MG In NS 250 / 250 250 / 250 Inj 250 ML @ 250 mls/hr IV.SIG Q18H [facility] Rx#:[id number] Oral 0 / 0 Output: Urine Amount (Catheter) 800 / 800 Indwelling Urethral Catheter 800 / 800 Other: Date of Last Bowel Movement 02/10/18 02/10/18 # Bowel Movements 1 Narrative: GENERAL: Sedated, on the vent, NAD SKIN: Evidence of IVDA cuts and needle cantu. Purple discoloration of toes and evidence of septic microemboli. HEAD: Atraumatic. Normocephalic. No temporal or scalp tenderness. EYES: Pupils equal round and reactive. Scleral icterus. No injection or drainage. No petechia ENT: Orally intubated NECK: Trachea midline. Supple, nontender, no meningeal signs. CARDIOVASCULAR: HS audible. RESPIRATORY: Air entry equal bilaterally. Clear to auscultation bilaterally. GASTROINTESTINAL: Abdomen soft,NT MUSCULOSKELETAL: Extremities without clubbing, cyanosis. NEUROLOGICAL: Sedated, Moves all 4 extremities on painful stimuli, LUE sluggish. Psych could not be assessed IV line sites ok. Results - Labs CBC & Chem 7: 02/11/18 03:40 02/11/18 03:40 Labs: Laboratory Results - last 24 hr 02/10/18 02/10/1818 12:40 13:30 13:30 WBC RBC Hgb Hct MCV MCH MCHC RDW Plt Count MPV Neut % (Auto) Lymph % (Auto) Archer % (Auto) Eos % (Auto) Baso % (Auto) Neut # (Auto) Lymph # (Auto) Archer # (Auto) Eos # (Auto) Baso # (Auto) WBC Differential Differential Comment PT INR Puncture Site Patient Temperature O2 Saturation ABG pH ABG pCO2 ABG pO2 ABG HCO3 ABG O2 Content ABG Base Excess ABG Methemoglobin Juan Francisco Test Hemoglobin Carboxyhemoglobin O2 Delivery Device Vent Setting Inspired O2 Critical Value Sodium Potassium Chloride Carbon Dioxide Anion Gap BUN Creatinine Estimated GFR POC Glucose Random Glucose Lactic Acid Calcium Calcium Adj for Albumin Phosphorus Magnesium Total Bilirubin AST ALT Alkaline Phosphatase Total Protein Albumin Nasal Screen MRSA (PCR) Not detected Urine Opiates Screen Neg Ur Barbiturates Screen Neg Ur Amphetamines Screen Neg U Benzodiazepines Scrn Neg Urine Cocaine Screen Neg U Cannabinoids Screen Neg Legionella Source Cancelled L. pneumophila DFA Cancelled 02/10/18 02/10/18 02/10/18 13:46 14:06 17:09 WBC RBC Hgb Hct MCV MCH MCHC RDW Plt Count MPV Neut % (Auto) Lymph % (Auto) Archer % (Auto) Eos % (Auto) Baso % (Auto) Neut # (Auto) Lymph # (Auto) Archer # (Auto) Eos # (Auto) Baso # (Auto) WBC Differential Differential Comment PT INR Puncture Site Left radial Patient Temperature 98.6 O2 Saturation 93 ABG pH 7.27 L* ABG pCO2 44 H ABG pO2 93 ABG HCO3 20 L ABG O2 Content 13.9 ABG Base Excess -6.0 L ABG Methemoglobin 1.7 Juan Francisco Test Present Hemoglobin 10.5 L Carboxyhemoglobin 0.3 O2 Delivery Device Ventilator Vent Setting Prvc/ac Inspired O2 50 Critical Value Yes Sodium Potassium Chloride Carbon Dioxide Anion Gap BUN Creatinine Estimated GFR POC Glucose 214 H Random Glucose Lactic Acid 1.1 Calcium Calcium Adj for Albumin Phosphorus Magnesium Total Bilirubin AST ALT Alkaline Phosphatase Total Protein Albumin Nasal Screen MRSA (PCR) Urine Opiates Screen Ur Barbiturates Screen Ur Amphetamines Screen U Benzodiazepines Scrn Urine Cocaine Screen U Cannabinoids Screen Legionella Source L. pneumophila DFA 02/10/18 02/10/18 02/11/18 20:56 21:51 03:35 WBC RBC Hgb Hct MCV MCH MCHC RDW Plt Count MPV Neut % (Auto) Lymph % (Auto) Archer % (Auto) Eos % (Auto) Baso % (Auto) Neut # (Auto) Lymph # (Auto) Archer # (Auto) Eos # (Auto) Baso # (Auto) WBC Differential Differential Comment PT INR Puncture Site Patient Temperature O2 Saturation ABG pH ABG pCO2 ABG pO2 ABG HCO3 ABG O2 Content ABG Base Excess ABG Methemoglobin Juan Francisco Test Hemoglobin Carboxyhemoglobin O2 Delivery Device Vent Setting Inspired O2 Critical Value Sodium Potassium Chloride Carbon Dioxide Anion Gap BUN Creatinine Estimated GFR POC Glucose 204 H 184 H Random Glucose Lactic Acid 2.6 H Calcium Calcium Adj for Albumin Phosphorus Magnesium Total Bilirubin AST ALT Alkaline Phosphatase Total Protein Albumin Nasal Screen MRSA (PCR) Urine Opiates Screen Ur Barbiturates Screen Ur Amphetamines Screen U Benzodiazepines Scrn Urine Cocaine Screen U Cannabinoids Screen Legionella Source L. pneumophila DFA 02/11/18 02/11/18 02/11/18 03:40 03:40 03:40 WBC 20.1 H RBC 2.83 L Hgb 8.0 L Hct 23.9 L MCV 84.6 MCH 28.4 MCHC 33.5 RDW 15.5 Plt Count 142 L D MPV 7.8 Neut % (Auto) 86.5 H Lymph % (Auto) 5.0 L Archer % (Auto) 7.8 Eos % (Auto) 0.4 Baso % (Auto) 0.3 Neut # (Auto) 17.4 H Lymph # (Auto) 1.0 Archer # (Auto) 1.6 H Eos # (Auto) 0.1 Baso # (Auto) 0.1 WBC Differential . Differential Comment Auto diff final PT 15.4 H INR 1.5 Puncture Site Patient Temperature O2 Saturation ABG pH ABG pCO2 ABG pO2 ABG HCO3 ABG O2 Content ABG Base Excess ABG Methemoglobin Juan Francisco Test Hemoglobin Carboxyhemoglobin O2 Delivery Device Vent Setting Inspired O2 Critical Value Sodium 133 L Potassium 3.8 Chloride 102 D Carbon Dioxide 21.9 Anion Gap 9 BUN 25 H Creatinine 1.43 H Estimated GFR 42 L POC Glucose Random Glucose 166 H Lactic Acid Calcium 7.0 L* D Calcium Adj for Albumin 8.8 Phosphorus 4.5 Magnesium 2.4 Total Bilirubin 1.0 AST 597 H ALT 272 H Alkaline Phosphatase 126 H Total Protein 6.0 L D Albumin 1.8 L Nasal Screen MRSA (PCR) Urine Opiates Screen Ur Barbiturates Screen Ur Amphetamines Screen U Benzodiazepines Scrn Urine Cocaine Screen U Cannabinoids Screen Legionella Source L. pneumophila DFA 02/11/18 02/11/18 02/11/18 03:40 08:44 12:05 WBC RBC Hgb Hct MCV MCH MCHC RDW Plt Count MPV Neut % (Auto) Lymph % (Auto) Archer % (Auto) Eos % (Auto) Baso % (Auto) Neut # (Auto) Lymph # (Auto) Archer # (Auto) Eos # (Auto) Baso # (Auto) WBC Differential Differential Comment PT INR Puncture Site Patient Temperature O2 Saturation ABG pH ABG pCO2 ABG pO2 ABG HCO3 ABG O2 Content ABG Base Excess ABG Methemoglobin Juan Francisco Test Hemoglobin Carboxyhemoglobin O2 Delivery Device Vent Setting Inspired O2 Critical Value Sodium Potassium Chloride Carbon Dioxide Anion Gap BUN Creatinine Estimated GFR POC Glucose 165 H 164 H Random Glucose Lactic Acid 2.4 H Calcium Calcium Adj for Albumin Phosphorus Magnesium Total Bilirubin AST ALT Alkaline Phosphatase Total Protein Albumin Nasal Screen MRSA (PCR) Urine Opiates Screen Ur Barbiturates Screen Ur Amphetamines Screen U Benzodiazepines Scrn Urine Cocaine Screen U Cannabinoids Screen Legionella Source L. pneumophila DFA - Imaging Impressions Chest X-Ray 02/10/18 13:34 CONCLUSION: 1. Endotracheal tube in appropriate position with tip measuring 4.8 cm from the radha. 2. Left IJ central line distal tip in the SVC without pneumothorax. 3. The nasogastric tube should be advanced the stomach. 4. Stable bibasilar opacity. Chest X-Ray 02/11/18 08:31 CONCLUSION: Persistent bibasilar airspace disease with significant consolidation in the left base. Additional support devices as described. No significant improvement compared to prior study. Assessment and Plan - Plan Septic Shock with Multiorgan involvement (resp, cvs, [employer]) Staph aureus bacteremia, Endocarditis of aortic valve. Staph in urine likely from bacterial translocation. Acute resp failure on vent Pneumonia aspiration vs septic emboli to lungs. Suspect Cerebral septic emboli. Acute metabolic encephalopathy: sepsis, meningitis from septic emboli possible ? parameningeal focus like epidural abscess. Acute renal failure: sepsis, prerenal. Recs Continue Zosyn IV Continue Vanco IV (target 15-20) Continue Ancef IV for possible MSSA. repeat blood cultures x 2 Follow cultures follow clinical course. MRI brain today If Cr ok will get CT C/A/P with contrast in am or may have to wait or get non contrast. Will follow along Case elsi RN Case elsi Pelaez No family can be reached per elsi BURNETTE Critical thinking and decision making. MAR reviewed, Imaging reviewed.
[2018-02-11] MEDS ORDERED: ceFAZolin Inj 2,000 MG in Sodium Chlor 0.9% Inj 80 ML IV.SIG SCH (14:00)
[2018-02-11] MEDS ORDERED: Gadobutrol PF 10 MMOL/10 ML Vial (for RAD) IV.SIG ONE (15:00)
--- NOTE | 2018-02-11 15:42 | MR ---
EXAM DATE: 02/11/2018 3:24 PM EST AGE/SEX: 32 years / Female INDICATIONS: CVA. Possible brain abscess. CLINICAL DATA: This is the patient's initial encounter. Patient reports that signs and symptoms have been present for 2 days and indicates a pain score of 0/10. MEDICAL/SURGICAL HISTORY: . IVDA None. COMPARISON: No prior exams available for comparison. TECHNIQUE: Multiplanar, multisequence examination of the brain was performed without and with 8cc ml Gadavist (gadobutrol) contrast as a single exam dose. FINDINGS: Cerebrum: There is abnormal increased FLAIR and T2 signal medially involving the right frontal and pa rietal lobes with partial involvement of the occipital and temporal lobes as well. This area demonstr ates abnormal restricted diffusion. Also, the left parietal lobe demonstrates similar edema and restr icted diffusion. These areas are not associated with the blood products or any definite enhancement. There is local mass effect from these changes with resultant 3 mm of [id number] midline shift. The ventricles are normal in size. The pituitary gland demonstrates no abnormality. White Matter: No significant abnormality in the periventricular white matter. Subcortical white neeru er is involved with the areas of edema and restricted diffusion bilaterally. Posterior Fossa: There is a 4 mm focal area of restricted diffusion in the right cerebellum is associ ated with mild increased FLAIR and T2 signal. Otherwise, posterior fossa structures demonstrate no ab normality. The fourth ventricle is within normal limits. Diffusion Imaging: There is restricted diffusion bilaterally in the areas of edema, as above. Extracranial: There is mucoperiosteal thickening throughout the paranasal sinuses with fluid in the nasopharynx. Post contrast: No focal abnormal areas of enhancement are identified. CONCLUSION: 1. Bilateral large areas of restricted diffusion, right larger than left, as above. These represent areas of recent ischemia. There are no findings to indicate hemorrhagic transformation. 2. The mass effect from the right-sided edema results and 3 mm of [id number] midline shift. 3. No abscess is identified. Electronically signed by: Wm Molina MD 02/11/2018 3:40 PM EST
[2018-02-11] MEDS: ceFAZolin 2 GM Premix Inj 2 GM/50 ML PIGGYBACK IV.SIG SCH ×2 (16:29→21:01)
--- NOTE | 2018-02-11 17:28 | ECG ---
Date Performed: 02/10/2018 Time Performed: 10:47:52 PTAGE: 32 years EKG: SINUS TACHYCARDIA WITH SHORT ME INTERVAL NONSPECIFIC ST ELEVATION Electrical interferences precludes further analysis of the tracing ABNORMAL RHYTHM ECG INTERPRETATION BASED ON A DEFAULT AGE O F 39 YEARS PREVIOUS TRACING : 09/03/2013 17.53 DOCTOR: Niesha Herman Interpretating Date/Time 02/11/2018 17:23:54
--- NOTE | 2018-02-11 17:31 | ECG ---
Date Performed: 02/10/2018 Time Performed: 14:58:22 PTAGE: 32 years EKG: SINUS TACHYCARDIA NONSPECIFIC ST ELEVATION ABNORMAL RHYTHM ECG PREVIOUS TRACING : 02/10/2018 10.47 DOCTOR: Rubén Ham Interpretating Date/Time 02/11/2018 17:24:33
--- NOTE | 2018-02-11 17:33 | ECG ---
Date Performed: 02/10/2018 Time Performed: 09:29:30 PTAGE: 32 years EKG: SUPRAVENTRICULAR TACHYCARDIA ST ELEVATION CONSISTENT WITH INJURY, PERICARDITIS, OR EARLY RE POLARIZATION NONSPECIFIC ST & T-WAVE ABNORMALITY ABNORMAL ECG PREVIOUS TRACING : 09/03/2013 17.53 DOCTOR: Niesha Herman Interpretating Date/Time 02/11/2018 17:25:23
--- NOTE | 2018-02-11 17:54 | CT ---
EXAM DATE: 02/11/2018 5:38 PM EST AGE/SEX: 32 years / Female INDICATIONS: Hemiparesis. CLINICAL DATA: This is the patient's initial encounter. Patient reports that signs and symptoms have been present for 1 day and indicates a pain score of Nonresponsive. MEDICAL/SURGICAL HISTORY: Non-responsive. Non-responsive. RADIATION DOSE: 52.83 CTDI (mGy) [place] [facility] [place]. . TECHNIQUE: CT of the head without contrast. Using automated exposure control and adjustment of the mA and/or kV according to patient size, radiation dose was kept as low as reasonably achievable to ob tain optimal diagnostic quality images. DICOM format image data is available electronically for revi ew and comparison. FINDINGS: Cerebrum: The ventricles are normal in size and there is stable 3 mm of gaaph-ga-pldy midline shift. Abnormal edema is present bilaterally but greater on the right. On the right the edema involves the frontal, parietal, occipital, and temporal lobes and on the left primarily involves the parietal lobe . Prior MRI demonstrated this to represent cytotoxic edema associated with the infarct. No mass lesio n or hemorrhage is identified. There is effacement of the perimesencephalic cisterns. No extraaxial fluid collections are seen. Posterior Fossa: The cerebellum and brainstem demonstrate no acute abnormality. The 4th ventricle is midline. The cerebellopontine angle is within normal limits. Extracranial: There are secretions and fluid in the nasopharynx. Otherwise, the visualized sinuses a re clear. Skull: The calvaria is intact. No skull fracture. CONCLUSION: 1. There is bilateral cytotoxic edema, as above, consistent with areas of recent ischemia. 2. The mass effect from the right-sided edema results in 3 mm of rvazj-fg-benh midline shift. No acu te blood products are identified. . Electronically signed by: Wm Molina MD 02/11/2018 5:52 PM EST
--- NOTE | 2018-02-11 18:01 | CT ---
EXAM DATE: 02/11/2018 5:45 PM EST AGE/SEX: 32 years / Female INDICATIONS: Hemiparesis. CLINICAL DATA: This is the patient's initial encounter. Patient reports that signs and symptoms have been present for 1 day and indicates a pain score of Nonresponsive. MEDICAL/SURGICAL HISTORY: Non-responsive. Non-responsive. RADIATION DOSE: 217.54 CTDI (mGy) COMPARISON: [facility] – [place] HEAD W/O CONTRAST, 02/11/2018. [facility] [place], CTA HEAD W CONTRAST W 3D, 02/11/2018. . TECHNIQUE: CT of the head after intravenous administration of 40 ml Omnipaque 350 (iohexol) nonioni c water-soluble contrast as a single exam dose. Using automated exposure control and adjustment of t he mA and/or kV according to patient size, radiation dose was kept as low as reasonably achievable to obtain optimal diagnostic quality images. DICOM format image data is available electronically for r eview and comparison. FINDINGS: 1. CBF (<30%) Volume (ml): 236ml 2. Perfusion (Tmax>6.0s) Volume (ml): 741ml 3. Mismatch Volume (ml) (Tmax>6.0 - CBF): 505ml CONCLUSION: Physiological brain perfusion parameters with RAPID analysis as above. The decision for consideration of therapy is multi factorial and multi disciplinary relying on subjec tive and objective clinical data. This data is not construed or intended to be the sole determinant of treatment eligibility. Electronically signed by: Wm Molina MD 02/11/2018 5:59 PM EST
--- NOTE | 2018-02-11 18:08 | CT ---
EXAM DATE: 02/11/2018 5:52 PM EST AGE/SEX: 32 years / Female INDICATIONS: Hemiparesis. CLINICAL DATA: This is the patient's initial encounter. Patient reports that signs and symptoms have been present for 1 day and indicates a pain score of Nonresponsive. MEDICAL/SURGICAL HISTORY: Non-responsive. Non-responsive. RADIATION DOSE: 9.95 CTDI (mGy) ; Combined studies COMPARISON: [facility], CT CEREBRAL PERF W CONTRAST W 3D, 02/11/2018. [facility], CT HEAD W/O CONTRAST, 2017. [facility], MR HEAD W & W/O CONTRAST, 02/11/2018. . TECHNIQUE: Volumetric scanning was performed using a multi-row detector CT scanner during bolus infu raul of 60 ml Omnipaque 350 (iohexol) nonionic water-soluble contrast as a cumulative dose for multi ple exams. The data was post processed with a variety of visualization algorithms including full vo lume maximum intensity projection, multi-planar sliding thin slab reformation, curved planar reformat ion, and surface rendering techniques. Using automated exposure control and adjustment of the mA and /or kV according to patient size, radiation dose was kept as low as reasonably achievable to obtain o ptimal diagnostic quality images. DICOM format image data is available electronically for review and comparison. FINDINGS: There is occlusion at the proximal right middle cerebral artery territory with decreased flow through out the right MCA territory. There is occlusion of a more distal M2 branches of the left middle cerebral artery with decreased per ipheral vessel seen in the left parietal lobe. The internal priors are patent bilaterally. The anterior cerebral arteries are patent. The vertebral, basilar and posterior cerebral artery are patent. CONCLUSION: 1. 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 2. Occlusion of the more distal M2 branch at the left middle cerebral artery supplying the left analia etal lobe. . Electronically signed by: Wm Schwarz MD 02/11/2018 6:07 PM EST
--- NOTE | 2018-02-11 18:16 | CT ---
EXAM DATE: 02/11/2018 6:04 PM EST AGE/SEX: 32 years / Female INDICATIONS: Hemiparesis. CLINICAL DATA: This is the patient's initial encounter. Patient reports that signs and symptoms have been present for 1 day and indicates a pain score of Nonresponsive. MEDICAL/SURGICAL HISTORY: Non-responsive. Non-responsive. RADIATION DOSE: 9.95 CTDI (mGy) ; Combined studies COMPARISON: No prior exams available for comparison. TECHNIQUE: Volumetric scanning was performed using a multirow detector CT scanner during bolus infus ion of 60 ml Omnipaque 350 (iohexol) nonionic water-soluble contrast as a cumulative dose for multip le exams. The data was postprocessed with a variety of visualization algorithms including full-volu me maximum intensity projection, multiplanar sliding thin-slab reformation, curved-planar reformation , and surface-rendering techniques. Using automated exposure control and adjustment of the mA and/or kV according to patient size, radiation dose was kept as low as reasonably achievable to obtain opti mal diagnostic quality images. DICOM format image data is available electronically for review and co mparison. Percent stenosis is calculated using the diameter of the stenotic region over the diameter of the nor mal distal internal carotid artery. FINDINGS: There is mild motion artifact. Aortic Arch: There is a three-vessel origin of the great vessels from the aorta. Motion artifact alanis its evaluation but no definite abnormality is seen. Right Carotid: Common carotid artery is within normal limits. The carotid bulb demonstrates no ather osclerotic plaque. There is no dissection visualized. Both the internal and external carotid arteries appear within normal limits. Left Carotid: Common carotid artery is within normal limits. Carotid bulb demonstrates no significan t abnormality and both the internal and external carotid arteries are within normal limits. No high-g rade stenosis or dissection is seen. Vertebrals: The vertebral arteries have a symmetric diameter. No stenotic lesions are seen. Other: There are patchy nodular peripheral areas of consolidation in the upper lobes bilaterally. Sma ll bilateral pleural effusions are partially visualized with adjacent compressive atelectasis. There is nonspecific edema and fluid in the mediastinum which may represent a pericardial effusion and/or m ediastinal edema. The left IJ central line distal tip extends into the azygos vein. CONCLUSION: 1. No abnormality is identified within the neck arterial vasculature. 2. There are small partially visualized bilateral pleural effusions with adjacent compressive atelec tasis. Additionally, there are nodular areas of peripheral consolidation in both upper lobes. 3. Pericardial effusion and/or mediastinal edema. 4. Please note that the left IJ central line distal tip extends into the azygos vein. Electronically signed by: Wm Molina MD 02/11/2018 6:15 PM EST
--- NOTE | 2018-02-11 22:45 | MB ---
cc: Matthew Colindres MD, PhD DATE: 02/11/2018 REASON FOR CONSULTATION: Stroke. HISTORY OF PRESENT ILLNESS: Laura Brunson is a 32-year-old female who has bacterial endocarditis affecting the aortic valve. The patient was identified to have a change in her neurological status, where she previously was combative moving both extremities and then suddenly had decreased movement, especially on the left side. The timing of this is unclear as the patient has been intubated. As part of the evaluation, she underwent an MRI of the brain, which showed 2 areas of large restricted diffusion on the diffusion images, right larger than left, but bilateral large areas with some mass effect. She has also undergone further evaluation with a CT angiogram as well as CT perfusion study. A head CT angiogram revealed occlusion of the proximal right MCA and also distal branches of the left MCA. A CT angiogram of the neck was normal. CT perfusion study revealed a mismatch on the right of 505 mL CURRENT MEDICATIONS: 1. Tylenol. 2. DuoNeb. 3. Ancef. 4. Dulcolax suppository. 5. Chlorhexidine. 6. Dexmedetomidine. 7. Subcutaneous heparin 5000 units b.i.d. 8. Lactulose. 9. Zofran p.r.n. 10. Piperacillin 11. Propofol. NEUROLOGIC EXAMINATION: VITAL SIGNS: Her blood pressure is 98/54, pulse is 81. HIGHER CORTICAL FUNCTION: The patient is sedated, nonresponsive. The pupils are 3 mm, only sluggishly reactive. Extraocular movements are minimal to doll's eyes maneuver. MOTOR EXAM: There is no spontaneous limb movement. No withdrawal to pain. No posturing. LABORATORY DATA: The white count is 20,000, hemoglobin 8, hematocrit 23.9%, platelet count is 142,000. PT 15.4, INR 1.5, APTT 33. Sodium is 133, potassium 3.8, chloride 102, CO2 of 21.9. The BUN is 25, creatinine 1.43, GFR is 42, glucose is 184. AST 597, ALT 272. IMPRESSION: The patient has sustained very large bilateral infarctions, worse on the right than on the left, with no hemorrhage. She does have a proximal occlusion of the right MCA with a mismatch on the diffusion images. However, I feel that her overall prognosis is very poor with the bilateral nature of the strokes. In addition, I feel that there is a hemorrhagic risk for intervention in the right hemisphere, given the probability that these strokes are due to septic emboli with the possibility of mycotic aneurysms and a risk of hemorrhage. Discussed the case with Dr. Garay of radiology and Dr. Burk. It is our feeling that it would be too high of a risk for the patient with minimal potential benefit to intervene given the bilateral nature of the strokes. Matthew Colindres MD, PhD OSWALD/alfred , 07:00 PM , 07:08 PM
[2018-02-12] MEDS: Piperacil/Tazo 3.375 GM Premix 50 ML IV.SIG SCH ×4 (00:58→17:23)
[2018-02-12] MEDS: Propofol 1000 mg/100 ml Inj 1,000 MG/100 ML BOTTLE IV.CONT PRN ×3 (01:01→12:20)
[2018-02-12] MEDS: Insulin NovoLOG Aspart Correctional Sugar Inj SQ SCH ×3 (04:28→17:23)
[2018-02-12] MEDS: Chlorhexidine Gluconate 2% 1 Pack (2 Cloths) TOPICAL SCH (04:28)
[2018-02-12] MEDS: KCL 20 mEq/D5W/NaCl 0.45% Inj 1,000 ML IV.CONT SCH (04:28)
[2018-02-12 04:40] LABS: Hematocrit 24.3 % (35.0-46.0); Hemoglobin 7.9 gm/dL (11.6-15.3); Mean Corpuscular HGB Conc 32.4 % (32.0-36.0); Mean Corpuscular Hemoglobin 27.5 pg (27.0-34.0); Mean Platelet Volume 8.7 fL (7.0-11.0); Platelet Count 170 th/mm3 (150-450); Red Blood Count 2.85 mil/mm3 (4.00-5.30); Red Cell Distribution Width 16.1 % (11.6-17.2); White Blood Count 25.5 th/mm3 (4.0-11.0)
[2018-02-12 05:11] LABS: Albumin 1.4 g/dL (3.4-5.0); Calcium 6.8 mg/dL (8.5-10.1); Carbon Dioxide 19.1 meq/L (21.0-32.0); Magnesium 2.5 mg/dL (1.5-2.5); Potassium 4.2 meq/L (3.5-5.1); Total Protein 5.7 g/dL (6.4-8.2)
[2018-02-12] MEDS: ceFAZolin 2 GM Premix Inj 2 GM/50 ML PIGGYBACK IV.SIG SCH ×3 (05:38→21:21)
--- NOTE | 2018-02-12 07:06 | P.PNCC ---
Subjective Subjective Remarks/Hospital Course: 32-year-old female that presented to [facility] emergency department with drug withdrawal symptoms. The patient reported to the ED physician Dr. Dwyer that she is a IV drug abuser and normally utilizes heroin but has been withdrawing. The patient was noted to be in rigors. Laboratory and imaging studies were performed the patient was noted to have a lactic acid of 4. Initial troponin was significantly elevated at 4. Cardiology was consulted and a stat transthoracic echo was performed which noted a vegetation on the aortic valve. Cardiology was consulted. In the ED the patient received prophylactic antibiotics vancomycin and Zosyn as well as 2 mg of Ativan. All information obtained from medical records upon my examination the patient was not responding to questions. In the ED the patient was noted to be diaphoretic , tachycardic, copious diarrhea. Critical care medicine was consulted 02/11: Patient was intubated yesterday for worsening respiratory failure and severe sepsis. Currently intubated sedated with propofol and Precedex remains tachypneic on the vent. Requiring Levophed at 11 mcg/min to maintain map above 65. Remains very critical. 2D echo shows mild mitral valve regurgitation. Mild thickening of the aortic valve leaflets. Moderate aortic valve regurgitation. Suspect aortic valve endocarditis. With aortic valve endocarditis and moderate aortic regurgitation prognosis remains guarded SUBJECTIVE: 02/12: Noted bilateral MCA CVAs with occlusion. Decision made not to adequately explored stent retrieval due to high risk of hemorrhagic conversion. Remains unresponsive on the ventilator. Will initiate tube feeding today. On weaning sedation patient becomes dyssynchronous with the ventilator Objective Vital Signs / I&O: Vital Signs 02/11/18 07:00 02/11/18 08:00 02/11/18 08:48 Temperature 98.5 F Pulse Rate 68 72 Respiratory Rate 18 26 H 34 H Blood Pressure 90/54 L 81/47 L Pulse Oximetry 99 100 99 02/11/18 09:00 02/11/18 10:00 02/11/18 11:00 Temperature Pulse Rate 71 67 75 Respiratory Rate 43 H 32 H 31 H Blood Pressure 85/54 L 91/53 L 98/56 L Pulse Oximetry 99 100 99 02/11/18 12:00 02/11/18 12:34 02/11/18 13:00 Temperature 98.2 F Pulse Rate 75 75 Respiratory Rate 40 H 23 26 H Blood Pressure 99/57 L 86/50 L Pulse Oximetry 100 100 100 02/11/18 14:00 02/11/18 15:57 02/11/18 16:00 Temperature 98.2 F Pulse Rate 74 81 81 Respiratory Rate 26 H 30 H 35 H Blood Pressure 98/54 L 104/53 L Pulse Oximetry 100 100 100 02/11/18 16:24 02/11/18 16:30 02/11/18 16:45 Temperature Pulse Rate 85 85 85 Respiratory Rate 65 H 47 H 28 H Blood Pressure 111/59 L 104/59 L 102/53 L Pulse Oximetry 100 100 100 02/11/18 17:00 02/11/18 18:00 02/11/18 18:05 Temperature 98.4 F Pulse Rate 83 79 79 Respiratory Rate 31 H 53 H 36 H Blood Pressure 100/53 L 100/59 L 100/59 L Pulse Oximetry 100 100 100 02/11/18 18:06 02/11/18 18:15 02/11/18 18:30 Temperature Pulse Rate 76 75 74 Respiratory Rate 53 H 63 H 30 H Blood Pressure 100/59 L 96/53 L 90/53 L Pulse Oximetry 100 100 98 02/11/18 18:45 02/11/18 19:00 02/11/18 19:01 Temperature Pulse Rate 73 73 73 Respiratory Rate 33 H 25 H 28 H Blood Pressure 103/50 L 102/66 102/66 Pulse Oximetry 100 96 97 02/11/18 19:16 02/11/18 19:30 02/11/18 19:56 Temperature Pulse Rate 72 73 71 Respiratory Rate 24 27 H 34 H Blood Pressure 87/54 L 91/59 L 105/51 L Pulse Oximetry 99 97 98 02/11/18 20:00 02/11/18 20:15 02/11/18 20:30 Temperature 97.5 F L Pulse Rate 72 70 71 Respiratory Rate 30 H 26 H 26 H Blood Pressure 105/54 L 105/57 L 105/56 L Pulse Oximetry 98 98 98 02/11/18 20:41 02/11/18 20:43 02/11/18 20:45 Temperature Pulse Rate 71 70 Respiratory Rate 24 22 23 Blood Pressure 104/57 L Pulse Oximetry 97 100 02/11/18 21:00 02/11/18 21:15 02/11/18 21:30 Temperature Pulse Rate 69 61 61 Respiratory Rate 23 23 37 H Blood Pressure 108/56 L 101/54 L 103/50 L Pulse Oximetry 98 98 99 02/11/18 21:45 02/11/18 22:00 02/11/18 22:15 Temperature Pulse Rate 62 76 89 Respiratory Rate 12 25 H 24 Blood Pressure 112/57 L 125/60 127/63 Pulse Oximetry 100 96 95 02/11/18 22:30 02/11/18 22:42 02/11/18 22:50 Temperature Pulse Rate 104 H 123 H 130 H Respiratory Rate 22 18 4 L Blood Pressure 136/68 147/72 H 154/84 H Pulse Oximetry 95 95 96 02/11/18 22:58 02/11/18 23:00 02/11/18 23:10 Temperature Pulse Rate 130 H 122 H Respiratory Rate 18 0 L 0 L Blood Pressure 142/73 H 118/58 L Pulse Oximetry 92 L 94 L 94 L 02/11/18 23:20 02/11/18 23:30 02/11/18 23:37 Temperature Pulse Rate 96 H 88 88 Respiratory Rate 0 L 0 L 0 L Blood Pressure 84/45 L 79/41 L 101/54 L Pulse Oximetry 95 96 98 02/11/18 23:40 02/11/18 23:50 02/12/18 00:00 Temperature 97.4 F L Pulse Rate 86 83 82 Respiratory Rate 0 L 0 L 0 L Blood Pressure 99/54 L 96/53 L 96/51 L Pulse Oximetry 97 97 97 02/12/18 00:10 02/12/18 00:20 02/12/18 00:30 Temperature Pulse Rate 82 84 84 Respiratory Rate 18 18 18 Blood Pressure 97/51 L 103/54 L 104/53 L Pulse Oximetry 97 97 97 02/12/18 00:40 02/12/18 00:50 02/12/18 01:00 Temperature Pulse Rate 80 79 78 Respiratory Rate 18 18 18 Blood Pressure 99/53 L 99/51 L 98/51 L Pulse Oximetry 97 98 98 02/12/18 01:10 02/12/18 01:20 02/12/18 01:30 Temperature Pulse Rate 78 78 77 Respiratory Rate 18 18 18 Blood Pressure 98/54 L 96/53 L 94/54 L Pulse Oximetry 98 98 98 02/12/18 01:40 02/12/18 01:50 02/12/18 02:00 Temperature Pulse Rate 77 77 77 Respiratory Rate 18 18 18 Blood Pressure 95/54 L 94/55 L 95/51 L Pulse Oximetry 98 98 98 02/12/18 02:10 02/12/18 02:20 02/12/18 02:30 Temperature Pulse Rate 77 78 78 Respiratory Rate 18 18 18 Blood Pressure 94/55 L 95/51 L 94/55 L Pulse Oximetry 98 98 98 02/12/18 03:18 Temperature Pulse Rate 79 Respiratory Rate 18 Blood Pressure Pulse Oximetry 98 Intake & Output 02/11/18 02/11/18 02/12/18 06:59 18:59 06:59 Intake Total 6000 / 6000 2900 / 2900 2850 / 2850 Output Total 800 / 800 800 / 800 Balance 5200 / 5200 2100 / 2100 2850 / 2850 Weight 80.5 kg Intake: IV 6000 / 6000 2900 / 2900 2850 / 2850 Sodium Bicarbonate 8.4% Inj 100 100 / 100 ML @ 0 mls/hr .ROUTE .STK-MED ONE Rx#:[id number] Precedex Inj 1,000 MCG In NS 250 / 250 Inj 240 ML @ 0.2 MCG/KG/HR 2.94 mls/hr IV.CONT TITRATE PRN Rx# :[id number] Precedex Inj 200 MCG In NS Inj 50 / 50 48 ML @ 0.2 MCG/KG/HR 2.94 mls/ hr IV.CONT TITRATE PRN Rx#: [id number] D5W/1/2NS + KCL 20 mEq Inj 1, 2000 / 2000 1000 / 1000 2000 / 2000 000 ML @ 125 mls/hr IV.CONT . Q8H [facility] Rx#:[id number] Diprivan 1000 mg/100 ml Inj 1, 300 / 300 200 / 200 200 / 200 000 mg In 100 ml @ 5 MCG/KG/MIN 1.769 mls/hr IV.CONT TITRATE PRN Rx#:[id number] Alburx 5% Inj 500 ML @ 250 mls/ 500 / 500 hr IV.SIG ONCE ONE Rx#:[id number] Levophed-Dextrose 4 mg/250 ml 250 / 250 500 / 500 250 / 250 Drip 4 mg In 250 ml @ 2 MCG/MIN 7.5 mls/hr IV.SIG TITRATE PRN Rx#:[id number] Zosyn 2.25 GM Premix 50 ML @ 150 / 150 100 mls/hr IV.SIG Q6H [facility] Rx#: [id number] Zosyn 3.375 GM Premix 50 ML @ 50 / 50 50 / 50 100 / 100 100 mls/hr IV.SIG Q6H [facility] Rx#: [id number] KCl 20 mEq Premix Inj 20 meq In 100 / 100 100 ml @ 50 mls/hr IV.SIG ONCE ONE Rx#:[id number] NS Inj 1,000 ML @ 2000 mls/hr 2000 / 2000 1100 / 1100 IV.SIG Q30M [facility] Rx#:[id number] Vancomycin Inj 1,000 MG In NS 250 / 250 250 / 250 Inj 250 ML @ 250 mls/hr IV.SIG Q18H [facility] Rx#:[id number] Ancef 2 GM Premix Inj 2 gm In 50 / 50 50 / 50 50 ml @ 100 mls/hr IV.SIG Q8H [facility] Rx#:[id number] Oral 0 / 0 Output: Urine Amount (Catheter) 800 / 800 800 / 800 Indwelling Urethral Catheter 800 / 800 800 / 800 Other: Date of Last Bowel Movement 02/10/18 02/11/18 02/11/18 # Bowel Movements 1 # Incontinent Bowel Movements 2 Result Diagrams: 02/12/18 04:16 02/12/18 04:25 Other Results: Microbiology 02/10/18 18:20 Sputum - Oral Tracheal Aspirate Gram Stain - Final 02/10/18 18:20 Sputum - Oral Tracheal Aspirate Sputum Culture - Preliminary Staphylococcus aureus 02/10/18 09:50 Blood - Peripheral Aerobic Blood Culture - Preliminary Staphylococcus coag positive 02/10/18 09:50 Blood - Peripheral Anaerobic Blood Culture - Preliminary gram positive cocci 02/10/18 13:30 Catheterized Urine Urine Culture - Preliminary Staphylococcus aureus 02/10/18 09:55 Blood - Peripheral Aerobic Blood Culture - Preliminary gram positive cocci 02/10/18 09:55 Blood - Peripheral Anaerobic Blood Culture - Preliminary gram positive cocci 02/10/18 13:30 Urine - Catheterized Urine Streptococcus pneumoniae Antigen ( M - Final Presumptive negative for streptococcus pneumoniae antigen, suggesting no current or recent infection. Infection due to Streptococcus pneumoniae cannot be ruled out since the antigen present in the sample may be below the detection limit of the test. 02/10/18 13:30 Urine - Random Urine Legionella Antigen - Final Presumptive negative for Legionella pneumophila serogroup 1 antigen in urine, suggesting no recent or recurrent infection. Infection due to Legionella cannot be ruled out since other serogroups and species may cause disease, antigen may not be present in urine in early infection, and the level of antigen present in the urine may be below the detection limit of the test. Imaging: Chest X-Ray 02/10/18 09:43 CONCLUSION: 1. Platelike airspace disease at the lung bases bilaterally, presumably atelectasis. Differential considerations include pneumonia and aspiration in the appropriate clinical setting. Chest X-Ray 02/10/18 13:34 CONCLUSION: 1. Endotracheal tube in appropriate position with tip measuring 4.8 cm from the radha. 2. Left IJ central line distal tip in the SVC without pneumothorax. 3. The nasogastric tube should be advanced the stomach. 4. Stable bibasilar opacity. Head CT 02/11/18 00:00 CONCLUSION: 1. There is bilateral cytotoxic edema, as above, consistent with areas of recent ischemia. 2. The mass effect from the right-sided edema results in 3 mm of [id number] midline shift. No acute blood products are identified. . Chest X-Ray 02/11/18 08:31 CONCLUSION: Persistent bibasilar airspace disease with significant consolidation in the left base. Additional support devices as described. No significant improvement compared to prior study. Head MRI 02/11/18 12:20 CONCLUSION: 1. Bilateral large areas of restricted diffusion, right larger than left, as above. These represent areas of recent ischemia. There are no findings to indicate hemorrhagic transformation. 2. The mass effect from the right-sided edema results and 3 mm of right-to- left midline shift. 3. No abscess is identified. CT CAD 02/11/18 16:24 CONCLUSION: Physiological brain perfusion parameters with RAPID analysis as above. The decision for consideration of therapy is multi factorial and multi disciplinary relying on subjective and objective clinical data. This data is not construed or intended to be the sole determinant of treatment eligibility. Head CTA 02/11/18 16:26 CONCLUSION: 1. 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 2. Occlusion of the more distal M2 branch at the left middle cerebral artery supplying the left parietal lobe. . Neck CTA 02/11/18 16:26 CONCLUSION: 1. No abnormality is identified within the neck arterial vasculature. 2. There are small partially visualized bilateral pleural effusions with adjacent compressive atelectasis. Additionally, there are nodular areas of peripheral consolidation in both upper lobes. 3. Pericardial effusion and/or mediastinal edema. 4. Please note that the left IJ central line distal tip extends into the azygos vein. Objective Remarks: GENERAL: 32-year-old female currently resting in bed critically orotracheally intubated SKIN: Warm and dry. No rash HEAD: Atraumatic. Normocephalic. EYES: Pupils equal and round. No scleral icterus. No injection or drainage. ENT: No nasal bleeding or discharge. Mucous membranes pink and moist. NECK: Trachea midline. No JVD. CARDIOVASCULAR: Regular rate and rhythm., S1, S2. No S4. Murmur RESPIRATORY: No accessory muscle use. Clear to auscultation. Breath sounds equal bilaterally. GASTROINTESTINAL: Abdomen soft, non-tender, nondistended. Hepatic and splenic margins not palpable. MUSCULOSKELETAL: Extremities without clubbing, cyanosis, or edema. No obvious deformities. NEUROLOGICAL: Unresponsive. No gag or cough. Minimal corneal reflex. Does not withdraw to pain. Assessment and Plan - Assessment and Plan Plan: Neuro/Psych: IV drug abuse-heroin History of polysubstance abuse including methamphetamines and cocaine Acute opioid withdrawal Bilateral MCA CVA Sedated with propofol drip at 50 madhuri grams per kilogram per minute and as needed dexmedetomidine infusion Acetaminophen by NG tube 650 mg every [address] angiogram of the brain revealed posterior right MCA occlusion and left MCA occlusion. Car Hostler yesterday discussed with Dr. Colindres. Decision not for stent retrieval/anticoagulant due to high risk of hemorrhagic conversion with embolic stroke Recent CT PE revealed right left shift 3 mm. Neurochecks Respiratory: Acute respiratory failure Left lower lobe infiltrate/pneumonia 02/10 patient intubated 7.5 ETT at 22 cm at the lip for airway protection and adequate ventilation ABGs post intubation 7.27/ 40 / 93/19/-6 Chest x-ray shows left lower lobe infiltrate DuoNeb every 6 hours scheduled and as needed Sputum culture ordered, broad-spectrum antibiotics with vancomycin and Zosyn Cardiovascular: Septic shock Aortic regurgitation Aortic valve vegetation Elevated troponin ? Coronary artery emboli Currently on norepinephrine drip at 8 mcg/min for septic shock On one half normal saline with 1 ampicillin bicarbonate 125 cc an hour Initial troponin 7 .29, follow-up serial troponin TTEcho-EF 55percent, moderate aortic regurgitation, mild MR, mild TR, small pericardial effusion, vegetation aortic valve, PASP 42 CardiologyDrCourtney Ham following. ROSANNA with 11 x 14 left cusp aortic valve vegetation /renal: AK I Patient extremely dehydrated need close monitoring at this time -- Strict I/Os FEN/GI: Diarrhea Transaminitis Gastroenteritis secondary to opioid/heroin withdrawal History of Salmonella enteritis Protein calorie malnutrition Patient bolused with 2 L normal saline IV fluid, give additional 2 L bolus Central line placed CVP monitoring medication administration and to obtain labs. 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 Sputum staph aureus. Urine staph aureus. Repeat blood cultures 02/11 pending Obtain urine culture, sputum culture Consult ID following Endocrine: Glucose monitoring per ICU protocol -- SSI with aspart insulin every 6 hours Prophylaxis: GI Prophylaxis Lansoprazole DVT Prophylaxis -- SCDs Heparin 5000 units twice daily Lines: Left IJ placed for central venous access 02/10 Critical care time 35 minutes follow-up
[2018-02-12] MEDS: Sodium Bicarbonate 8.4% Inj 50 MEQ in Sodium Chloride 0.45 % Inj 950 ML IV.CONT SCH ×2 (08:14→16:41)
[2018-02-12] MEDS: Artificial Tears Opth Drops 15 ML Bottle EACH EYE SCH ×2 (09:09→15:41)
[2018-02-12] MEDS: Heparin - SQ 10,000 UNITS/ML Vial SQ SCH ×2 (09:09→21:20)
[2018-02-12 09:22] LABS: Anion Gap 8 meq/L (5-15); Blood Urea Nitrogen 24 mg/dL (7-18); Calcium 7.2 mg/dL (8.5-10.1); Carbon Dioxide 19.2 meq/L (21.0-32.0); Chloride 109 meq/L (98-107); Creatine Kinase 124 U/L (26-192); Glomerular Filtration Rate 40 mL/min (>89); Glucose,Random 283 mg/dL (74-106); Lipase 137 U/L (73-393); Potassium 4.5 meq/L (3.5-5.1); Sodium 136 meq/L (136-145)
[2018-02-12 09:25] LABS: Troponin I 1.59 ng/mL (0.02-0.05)
[2018-02-12 09:39] LABS: Albumin 1.6 g/dL (3.4-5.0); Calcium-Albumin Corrected 9.1 mg/dL (8.5-10.1)
--- NOTE | 2018-02-12 09:44 | P.PNCA ---
Subjective Interval history: Patient is unresponsive Medications and Allergies Active Medications: Active Medications Acetaminophen (Tylenol) 650 mg PO Q6H PRN PRN Reason: PAIN 1-10 AND/OR FEVER >101F Al Hydroxide/Mg Hydroxide (Milk Of Magnedgar Liq) 30 ml PO Q12H PRN PRN Reason: Mild Constipation Albuterol (Duoneb Neb (Kathleen)) 1 ampul NEB Q4HR NEB [facility] Last Admin: 02/12/18 08:32 Dose: 1 ampul Albuterol (Albuterol Neb (Prn)) 2.5 mg NEB Q2HR NEB PRN PRN Reason: DYSPNEA Artificial Tears (Tears Naturale Opth Drops) 1 drop EACH EYE Q8H [facility] Last Admin: 02/12/18 09:09 Dose: 1 drop Bisacodyl (Dulcolax Supp) 10 mg RECTAL DAILY PRN PRN Reason: SEVERE CONSITIPATION Chlorhexidine Gluconate (Chlorhexidine 2% Cloth) 3 pack TOPICAL DAILY@0400 [facility] Stop: 02/16/18 03:59 Last Admin: 02/12/18 04:28 Dose: 3 pack Chlorhexidine Gluconate (Chlorhexidine 2% Cloth) 3 pack TOPICAL DAILY@0400 PRN PRN Reason: Extra cloth needed Stop: 02/16/18 03:59 Dextrose (D50w Vial) 50 ml IV.PUSH UNSCH PRN PRN Reason: PER HYPOGLYCEMIA PROTOCOL Glucagon (Glucagon Inj) 1 mg OTHER PRN PRN PRN Reason: for Hypoglycemia Protocol Heparin Sodium (Porcine) (Heparin Inj) 5,000 units SQ Q12HR [facility] Last Admin: 02/12/18 09:09 Dose: 5,000 units Vancomycin HCl 1,000 mg/ (Sodium Chloride) 250 mls @ 250 mls/hr IV.SIG Q18H [facility] Last Infusion: 02/11/18 22:01 Dose: Infused Acetaminophen (Ofirmev Inj) 1,000 mg in 100 mls @ 400 mls/hr IV.SIG Q6H PRN PRN Reason: PAIN SCALE 1 TO 10 Stop: 02/12/18 23:59 Last Infusion: 02/10/18 16:57 Dose: Infused Propofol (Diprivan 1000 Mg/100 Ml Inj) 1,000 mg in 100 mls @ 1.769 mls/hr IV.CONT TITRATE PRN; Protocol PRN Reason: Per Protocol Last Admin: 02/12/18 07:03 Dose: 50 mcg/kg/min, 17.69 mls/hr Norepinephrine Bitartrate (Levophed-Dextrose 4 Mg/250 Ml Drip) 4 mg in 250 mls @ 7.5 mls/hr IV.SIG TITRATE PRN; Protocol PRN Reason: Per Protocol Last Admin: 02/12/18 07:03 Dose: 10 mcg/min, 37.5 mls/hr Dexmedetomidine HCl 1,000 mcg/ (Sodium Chloride) 250 mls @ 2.94 mls/hr IV.CONT TITRATE PRN; Protocol PRN Reason: Per Protocol Last Titration: 02/11/18 07:30 Dose: 0 mcg/kg/hr, 0 mls/hr Vasopressin 40 unit/ Sodium (Chloride) 100 mls @ 6 mls/hr IV.CONT CONT [facility]ATHLEEN; Protocol Piperacillin/Tazobactam/Dextrose (Zosyn 3.375 Gm Premix) 50 mls @ 100 mls/hr IV.SIG Q6H [facility] Last Infusion: 02/12/18 06:08 Dose: Infused Cefazolin Sodium/Dextrose (Ancef 2 Gm Premix Inj) 2 gm in 50 mls @ 100 mls/hr IV.SIG Q8H [facility] Last Infusion: 02/12/18 06:08 Dose: Infused Sodium Bicarbonate 50 meq/ (Sodium Chloride) 1,000 mls @ 125 mls/hr IV.CONT .Q8H [facility] Stop: 02/12/18 22:59 Last Admin: 02/12/18 08:14 Dose: 125 mls/hr Insulin Aspart (Novolog Insulin Correctional Sugar Inj) 0 unit SQ Q6HR KATHLEEN; Protocol Lactulose (Lactulose Liq) 30 ml PO DAILY PRN PRN Reason: SEVERE CONSITIPATION Lansoprazole (Prevacid Solutab) 30 mg NG/OG DAILY [facility] Last Admin: 02/12/18 09:09 Dose: 30 mg Midazolam HCl (Versed Inj) 2 mg IV.PUSH Q4H PRN PRN Reason: AGITATION AND/OR HALLUCINATION Last Admin: 02/11/18 22:42 Dose: 2 mg Miscellaneous Information ([facility] Ordered Lab Info) 0 each OTHER ONCE ONE Stop: 02/12/18 15:46 Ondansetron HCl (Zofran Inj) 4 mg IV.PUSH Q6H PRN PRN Reason: NAUSEA OR VOMITING Pharmacy Profile Note (Vancomycin Consult Pharmacy) 1 each OTHER UNSCH PRN PRN Reason: Pharmacy to dose Sennosides (Senokot) 17.2 mg PO Q12H PRN PRN Reason: Moderate Constipation Sodium Chloride (Ns Flush) 2 ml IV.FLUSH BID [facility]ATHLEEN Last Admin: 02/12/18 09:09 Dose: 2 ml Sodium Chloride (Ns Flush) 2 ml IV.FLUSH PRN PRN PRN Reason: FLUSH AFTER USING IV ACCESS Sterile Water (Free Water) 100 ml G-TUBE Q6HR [facility]ATHLEEN Terbutaline Sulfate (Brethine Inj) 1 mg SQ UNSCH PRN PRN Reason: For Extravasation Allergies Allergy/AdvReac Type Severity Reaction Status Date / Time *MDRO Multi-Drug Resistant Allergy Unknown Uncoded 09/04/13 13:15 Organism Home Medications Medication Instructions Recorded Confirmed Type Unable to Obtain Home Meds 02/10/18 02/10/18 History Physical Exam Vital signs: Vital Signs 02/11/18 10:00 02/11/18 11:00 02/11/18 12:00 Temperature 98.2 F Pulse Rate 67 75 75 Respiratory Rate 32 H 31 H 40 H Blood Pressure 91/53 L 98/56 L 99/57 L Pulse Oximetry 100 99 100 02/11/18 12:34 02/11/18 13:00 02/11/18 14:00 Temperature Pulse Rate 75 74 Respiratory Rate 23 26 H 26 H Blood Pressure 86/50 L 98/54 L Pulse Oximetry 100 100 100 02/11/18 15:57 02/11/18 16:00 02/11/18 16:24 Temperature 98.2 F Pulse Rate 81 81 85 Respiratory Rate 30 H 35 H 65 H Blood Pressure 104/53 L 111/59 L Pulse Oximetry 100 100 100 02/11/18 16:30 02/11/18 16:45 02/11/18 17:00 Temperature Pulse Rate 85 85 83 Respiratory Rate 47 H 28 H 31 H Blood Pressure 104/59 L 102/53 L 100/53 L Pulse Oximetry 100 100 100 02/11/18 18:00 02/11/18 18:05 02/11/18 18:06 Temperature 98.4 F Pulse Rate 79 79 76 Respiratory Rate 53 H 36 H 53 H Blood Pressure 100/59 L 100/59 L 100/59 L Pulse Oximetry 100 100 100 02/11/18 18:15 02/11/18 18:30 02/11/18 18:45 Temperature Pulse Rate 75 74 73 Respiratory Rate 63 H 30 H 33 H Blood Pressure 96/53 L 90/53 L 103/50 L Pulse Oximetry 100 98 100 02/11/18 19:00 02/11/18 19:01 02/11/18 19:16 Temperature Pulse Rate 73 73 72 Respiratory Rate 25 H 28 H 24 Blood Pressure 102/66 102/66 87/54 L Pulse Oximetry 96 97 99 02/11/18 19:30 02/11/18 19:56 02/11/18 20:00 Temperature Pulse Rate 73 71 72 Respiratory Rate 27 H 34 H 30 H Blood Pressure 91/59 L 105/51 L 105/54 L Pulse Oximetry 97 98 98 02/11/18 20:15 02/11/18 20:30 02/11/18 20:41 Temperature 97.5 F L Pulse Rate 70 71 Respiratory Rate 26 H 26 H 24 Blood Pressure 105/57 L 105/56 L Pulse Oximetry 98 98 97 02/11/18 20:43 02/11/18 20:45 02/11/18 21:00 Temperature Pulse Rate 71 70 69 Respiratory Rate 22 23 23 Blood Pressure 104/57 L 108/56 L Pulse Oximetry 100 98 02/11/18 21:15 02/11/18 21:30 02/11/18 21:45 Temperature Pulse Rate 61 61 62 Respiratory Rate 23 37 H 12 Blood Pressure 101/54 L 103/50 L 112/57 L Pulse Oximetry 98 99 100 02/11/18 22:00 02/11/18 22:15 02/11/18 22:30 Temperature Pulse Rate 76 89 104 H Respiratory Rate 25 H 24 22 Blood Pressure 125/60 127/63 136/68 Pulse Oximetry 96 95 95 02/11/18 22:42 02/11/18 22:50 02/11/18 22:58 Temperature Pulse Rate 123 H 130 H Respiratory Rate 18 4 L 18 Blood Pressure 147/72 H 154/84 H Pulse Oximetry 95 96 92 L 02/11/18 23:00 02/11/18 23:10 02/11/18 23:20 Temperature Pulse Rate 130 H 122 H 96 H Respiratory Rate 0 L 0 L 0 L Blood Pressure 142/73 H 118/58 L 84/45 L Pulse Oximetry 94 L 94 L 95 02/11/18 23:30 02/11/18 23:37 02/11/18 23:40 Temperature Pulse Rate 88 88 86 Respiratory Rate 0 L 0 L 0 L Blood Pressure 79/41 L 101/54 L 99/54 L Pulse Oximetry 96 98 97 02/11/18 23:50 02/12/18 00:00 02/12/18 00:10 Temperature 97.4 F L Pulse Rate 83 82 82 Respiratory Rate 0 L 0 L 18 Blood Pressure 96/53 L 96/51 L 97/51 L Pulse Oximetry 97 97 97 02/12/18 00:20 02/12/18 00:30 02/12/18 00:40 Temperature Pulse Rate 84 84 80 Respiratory Rate 18 18 18 Blood Pressure 103/54 L 104/53 L 99/53 L Pulse Oximetry 97 97 97 02/12/18 00:50 02/12/18 01:00 02/12/18 01:10 Temperature Pulse Rate 79 78 78 Respiratory Rate 18 18 18 Blood Pressure 99/51 L 98/51 L 98/54 L Pulse Oximetry 98 98 98 02/12/18 01:20 02/12/18 01:30 02/12/18 01:40 Temperature Pulse Rate 78 77 77 Respiratory Rate 18 18 18 Blood Pressure 96/53 L 94/54 L 95/54 L Pulse Oximetry 98 98 98 02/12/18 01:50 02/12/18 02:00 02/12/18 02:10 Temperature Pulse Rate 77 77 77 Respiratory Rate 18 18 18 Blood Pressure 94/55 L 95/51 L 94/55 L Pulse Oximetry 98 98 98 02/12/18 02:20 02/12/18 02:30 02/12/18 03:18 Temperature Pulse Rate 78 78 79 Respiratory Rate 18 18 18 Blood Pressure 95/51 L 94/55 L Pulse Oximetry 98 98 98 02/12/18 03:20 02/12/18 03:30 02/12/18 03:40 Temperature Pulse Rate 80 82 82 Respiratory Rate 18 18 18 Blood Pressure 95/50 L 99/52 L 99/54 L Pulse Oximetry 98 98 98 02/12/18 03:50 02/12/18 04:00 02/12/18 04:10 Temperature 98.3 F Pulse Rate 83 85 83 Respiratory Rate 18 18 18 Blood Pressure 100/54 L 105/55 L 100/54 L Pulse Oximetry 98 98 97 02/12/18 04:20 02/12/18 04:30 02/12/18 04:40 Temperature Pulse Rate 84 86 87 Respiratory Rate 18 18 20 Blood Pressure 101/55 L 90/44 L 110/56 L Pulse Oximetry 98 97 98 02/12/18 04:50 02/12/18 05:00 02/12/18 05:10 Temperature Pulse Rate 86 92 H 88 Respiratory Rate 17 17 15 Blood Pressure 107/53 L 107/58 L 105/55 L Pulse Oximetry 100 99 99 02/12/18 05:20 02/12/18 05:30 02/12/18 05:40 Temperature Pulse Rate 87 87 87 Respiratory Rate 18 16 8 L Blood Pressure 104/53 L 102/52 L 102/55 L Pulse Oximetry 99 99 99 02/12/18 05:50 02/12/18 06:00 02/12/18 06:10 Temperature Pulse Rate 86 86 86 Respiratory Rate 5 L 7 L 12 Blood Pressure 102/53 L 101/50 L 102/53 L Pulse Oximetry 99 99 98 02/12/18 06:20 02/12/18 06:30 02/12/18 06:40 Temperature Pulse Rate 86 85 85 Respiratory Rate 12 8 L 13 Blood Pressure 101/53 L 100/53 L 101/53 L Pulse Oximetry 99 99 98 02/12/18 06:50 02/12/18 07:00 02/12/18 07:10 Temperature Pulse Rate 85 85 85 Respiratory Rate 8 L 12 11 L Blood Pressure 100/52 L 98/51 L 98/52 L Pulse Oximetry 99 99 99 02/12/18 07:20 02/12/18 08:33 Temperature Pulse Rate 87 91 H Respiratory Rate 13 15 Blood Pressure 99/55 L Pulse Oximetry 98 95 Intake & Output 02/11/18 02/12/18 02/12/18 18:59 06:59 18:59 Intake Total 2900 / 2900 3300 / 3300 558 / 558 Output Total 800 / 800 1600 / 1600 Balance 2099 / 2099 1700 / 1700 558 / 558 Weight 85.5 kg Intake: IV 2900 / 2900 3300 / 3300 558 / 558 D5W/1/2NS + KCL 20 mEq Inj 1, 1000 / 1000 1999 / 1999 558 / 558 000 ML @ 125 mls/hr IV.CONT . Q8H [facility]ATHLEEN Rx#:[id number] Diprivan 1000 mg/100 ml Inj 1, 200 / 200 300 / 300 000 mg In 100 ml @ 5 MCG/KG/MIN 1.769 mls/hr IV.CONT TITRATE PRN Rx#:[id number] Levophed-Dextrose 4 mg/250 ml 500 / 500 500 / 500 Drip 4 mg In 250 ml @ 2 MCG/MIN 7.5 mls/hr IV.SIG TITRATE PRN Rx#:[id number] Zosyn 3.375 GM Premix 50 ML @ 50 / 50 150 / 150 100 mls/hr IV.SIG Q6H KATHLEEN Rx#: [id number] NS Inj 1,000 ML @ 2000 mls/hr 1100 / 1100 IV.SIG Q30M KATHLEEN Rx#:[id number] Vancomycin Inj 1,000 MG In NS 250 / 250 Inj 250 ML @ 250 mls/hr IV.SIG Q18H [facility]ATHLEEN Rx#:[id number] Ancef 2 GM Premix Inj 2 gm In 50 / 50 100 / 100 50 ml @ 100 mls/hr IV.SIG Q8H KATHLEEN Rx#:[id number] Output: Urine Amount (Catheter) 800 / 800 1600 / 1600 Indwelling Urethral Catheter 800 / 800 1600 / 1600 Other: Date of Last Bowel Movement 02/11/18 02/11/18 02/11/18 # Incontinent Bowel Movements 2 0 Narrative: GENERAL: Sedated, on the vent, NAD SKIN: Evidence of IVDA cuts and needle cantu. Purple discoloration of toes and evidence of septic microemboli. HEAD: Atraumatic. Normocephalic. No temporal or scalp tenderness. ENT: Orally intubated NECK: Trachea midline. Supple, no JVD CARDIOVASCULAR: S1S2 RRR. Can't hear her AR. No M, RESPIRATORY: Air entry equal bilaterally. Clear to auscultation bilaterally. GASTROINTESTINAL: Abdomen soft,NT MUSCULOSKELETAL: Extremities without clubbing, cyanosis - Urinary Catheter Management Indwelling Urethral Catheter Cath placed during this visit: yes Reason for continuing: Acute urinary retention Insertion date: 02/10/18 Insertion time: 13:30 Results 02/12/18 04:16 02/12/18 08:11 Cardiac Enzymes 02/10/18 02/10/18 02/10/18 Range/Units 09:31 09:31 11:21 AST 346 H (15-37) U/L CK-MB (CK-2) 9.5 H (0.5-3.6) ng/mL Troponin I 7.29 H* (0.02-0.05) ng/mL 02/11/18 02/12/18 02/12/18 Range/Units 03:40 04:25 08:11 AST 597 H 983 H (15-37) U/L CK-MB (CK-2) (0.5-3.6) ng/mL Troponin I 1.59 H* D (0.02-0.05) ng/mL Coagulation 02/10/18 02/11/18 Range/Units 09:50 03:40 PT 14.8 H 15.4 H (9.8-11.6) sec APTT 33.1 H (23.4-31.7) sec CBC 02/10/18 02/11/18 02/12/18 Range/Units 09:31 03:40 04:16 WBC 26.6 H 20.1 H 25.5 H (4.0-11.0) th/mm3 RBC 3.54 L 2.83 L 2.85 L (4.00-5.30) mil/mm3 Hgb 9.7 L 8.0 L 7.9 L (11.6-15.3) gm/dL Hct 30.4 L 23.9 L 24.3 L (35.0-46.0) % Plt Count 212 142 L D 170 (150-450) th/mm3 Neut # (Auto) 24.7 H 17.4 H (1.8-7.7) th/mm3 Lymph # (Auto) 0.3 L 1.0 (1.0-4.8) th/mm3 [place] # (Auto) 1.5 H 1.6 H (0.0-0.9) th/mm3 Eos # (Auto) 0.0 0.1 (0.0-0.4) th/mm3 Baso # (Auto) 0.1 0.1 (0.0-0.2) th/mm3 Comprehensive Metabolic Panel 02/10/18 02/11/18 02/12/18 Range/Units 09:31 03:40 04:25 Sodium 125 L 133 L 139 (136-145) meq/L Potassium 3.2 L 3.8 4.2 (3.5-5.1) meq/L Chloride 93 L 102 D 109 H (98-107) meq/L Carbon Dioxide 20.0 L 21.9 19.1 L (21.0-32.0) meq/L BUN 21 H 25 H 25 H (7-18) mg/dL Creatinine 1.35 H 1.43 H 1.38 H (0.50-1.00) mg/dL Calcium 8.0 L 7.0 L* D 6.8 L* (8.5-10.1) mg/dL AST 346 H 597 H 983 H (15-37) U/L ALT 173 H 272 H 723 H (10-53) U/L Alkaline Phosphatase 197 H 126 H 150 H (45-117) U/L Total Protein 7.5 6.0 L D 5.7 L (6.4-8.2) g/dL Albumin 2.0 L 1.8 L 1.4 L (3.4-5.0) g/dL 02/12/18 Range/Units 08:11 Sodium 136 (136-145) meq/L Potassium 4.5 (3.5-5.1) meq/L Chloride 109 H (98-107) meq/L Carbon Dioxide 19.2 L (21.0-32.0) meq/L BUN 24 H (7-18) mg/dL Creatinine 1.49 H (0.50-1.00) mg/dL Calcium 7.2 L* (8.5-10.1) mg/dL AST (15-37) U/L ALT (10-53) U/L Alkaline Phosphatase (45-117) U/L Total Protein (6.4-8.2) g/dL Albumin 1.6 L (3.4-5.0) g/dL Intake and Output 02/11/18 02/12/18 02/12/18 22:59 06:59 14:59 Intake Total 3100 / 3100 1600 / 1600 558 / 558 Output Total 800 / 800 1600 / 1600 Balance 2300 / 2300 0 / 0 558 / 558 Intake: IV 3100 / 3100 1600 / 1600 558 / 558 D5W/1/2NS + KCL 20 mEq Inj 1, 2000 / 2000 1000 / 1000 558 / 558 000 ML @ 125 mls/hr IV.CONT . Q8H [facility]ATHLE[facility] Rx#:[id number] Diprivan 1000 mg/100 ml Inj 1, 200 / 200 200 / 200 000 mg In 100 ml @ 5 MCG/KG/MIN 1.769 mls/hr IV.CONT TITRATE PRN Rx#:[id number] Levophed-Dextrose 4 mg/250 ml 500 / 500 250 / 250 Drip 4 mg In 250 ml @ 2 MCG/MIN 7.5 mls/hr IV.SIG TITRATE PRN Rx#:[id number] Zosyn 3.375 GM Premix 50 ML @ 50 / 50 100 / 100 100 mls/hr IV.SIG Q6H [facility]ATHLE[facility] Rx#: [id number] Vancomycin Inj 1,000 MG In NS 250 / 250 Inj 250 ML @ 250 mls/hr IV.SIG Q18H [facility] Rx#:[id number] Ancef 2 GM Premix Inj 2 gm In 100 / 100 50 / 50 50 ml @ 100 mls/hr IV.SIG Q8H [facility]LE[facility] Rx#:[id number] Output: Urine Amount (Catheter) 800 / 800 1600 / 1600 Indwelling Urethral Catheter 800 / 800 1600 / 1600 Other: Date of Last Bowel Movement 02/11/18 02/11/18 02/11/18 # Incontinent Bowel Movements 2 0 Weight 85.5 kg - Imaging and Cardiology Imaging: Impressions Chest X-Ray 02/10/18 09:43 CONCLUSION: 1. Platelike airspace disease at the lung bases bilaterally, presumably atelectasis. Differential considerations include pneumonia and aspiration in the appropriate clinical setting. Chest X-Ray 02/10/18 13:34 CONCLUSION: 1. Endotracheal tube in appropriate position with tip measuring 4.8 cm from the radha. 2. Left IJ central line distal tip in the SVC without pneumothorax. 3. The nasogastric tube should be advanced the stomach. 4. Stable bibasilar opacity. Head CT 02/11/18 00:00 CONCLUSION: 1. There is bilateral cytotoxic edema, as above, consistent with areas of recent ischemia. 2. The mass effect from the right-sided edema results in 3 mm of [id number] midline shift. No acute blood products are identified. . Chest X-Ray 02/11/18 08:31 CONCLUSION: Persistent bibasilar airspace disease with significant consolidation in the left base. Additional support devices as described. No significant improvement compared to prior study. Head MRI 02/11/18 12:20 CONCLUSION: 1. Bilateral large areas of restricted diffusion, right larger than left, as above. These represent areas of recent ischemia. There are no findings to indicate hemorrhagic transformation. 2. The mass effect from the right-sided edema results and 3 mm of right-to- left midline shift. 3. No abscess is identified. CT CAD 02/11/18 16:24 CONCLUSION: Physiological brain perfusion parameters with RAPID analysis as above. The decision for consideration of therapy is multi factorial and multi disciplinary relying on subjective and objective clinical data. This data is not construed or intended to be the sole determinant of treatment eligibility. Head CTA 02/11/18 16:26 CONCLUSION: 1. 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 2. Occlusion of the more distal M2 branch at the left middle cerebral artery supplying the left parietal lobe. . Neck CTA 02/11/18 16:26 CONCLUSION: 1. No abnormality is identified within the neck arterial vasculature. 2. There are small partially visualized bilateral pleural effusions with adjacent compressive atelectasis. Additionally, there are nodular areas of peripheral consolidation in both upper lobes. 3. Pericardial effusion and/or mediastinal edema. 4. Please note that the left IJ central line distal tip extends into the azygos vein. Assessment and Plan - Assessment (1) Endocarditis Code(s): I38 - Endocarditis, valve unspecified Status: Acute (2) Aortic valve regurgitation Code(s): I35.1 - Nonrheumatic aortic (valve) insufficiency Status: Acute - Plan 02/11 Severely septic. Plan ROSANNA to firm up diagnosis of suspected endocarditis. Dr. Prabhakar agrees. Mental status concerning for possible stroke. 02/12/19 Has suffered septic emboli to her brain. Prognosis poor. I will see prn. Please call if questions.
[2018-02-12 10:54] LABS: Hepatitis A IgM Antibody Nonreactive (Nonreactive); Hepatitits B Surface Antigen Nonreactive (Nonreactive)
--- NOTE | 2018-02-12 12:07 | P.PNID ---
Subjective Remarks: is a 32 y/o CF who presented to the ED at [facility] with symptoms suggestive of drug withdrawal. The patient reported when awake in the ED that she is an IVDA per records and uses heroin and thought she was withdrawing. Patient was reportedly having rigors in ED. Patient showed signs of severe sepsis with lactic acid 4. Cardiology consulted and stat ECHO with Aortic valve vegetation. Critical care was consulted and patient admitted to the ICU. Patient has undergone a ROSANNA at this point which is positive for aortic valve vegetation. In the ED the patient was noted to be diaphoretic, tachycardic, copious diarrhea. Critical care medicine was consulted. Patient ended up getting intubated on 02/10/2018 for worsening resp failure and altered mentation. Patient has been noted to have LUE weakness and due to concern for Cerebral septic emboli patient is scheduled for a MRI brain today. At the time of my evaluation patient is in the ICU, currently intubated on vent with FIO2 40%, PEEP 5. Also on Levophed at 10 mics to maintain map at 65. Blood cultures and urine cultures on admission positive for Staph coag positive concerning for MSSA or MRSA ID pending. ID consulted for evaluation and Mment of severe sepsis. Overnight events reviewed. Remains intubated. Non responsive. MRI with bilateral MCA occlusion. No fever No rash No diarrhea Antibiotics: Zosyn IV Vanco IV Ancef IV Lines: Line sites with no e.o infection Past Medical History: reviewed Allergies/Adverse Reactions: Allergies *MDRO Multi-Drug Resistant Organism Allergy (Unknown, Uncoded 09/04/13 13:15) MRSA 2011 Objective Vital Signs 02/11/18 12:34 02/11/18 13:00 02/11/18 14:00 Temperature Pulse Rate 75 74 Respiratory Rate 23 26 H 26 H Blood Pressure 86/50 L 98/54 L Pulse Oximetry 100 100 100 02/11/18 15:57 02/11/18 16:00 02/11/18 16:24 Temperature 98.2 F Pulse Rate 81 81 85 Respiratory Rate 30 H 35 H 65 H Blood Pressure 104/53 L 111/59 L Pulse Oximetry 100 100 100 02/11/18 16:30 02/11/18 16:45 02/11/18 17:00 Temperature Pulse Rate 85 85 83 Respiratory Rate 47 H 28 H 31 H Blood Pressure 104/59 L 102/53 L 100/53 L Pulse Oximetry 100 100 100 02/11/18 18:00 02/11/18 18:05 02/11/18 18:06 Temperature 98.4 F Pulse Rate 79 79 76 Respiratory Rate 53 H 36 H 53 H Blood Pressure 100/59 L 100/59 L 100/59 L Pulse Oximetry 100 100 100 02/11/18 18:15 02/11/18 18:30 02/11/18 18:45 Temperature Pulse Rate 75 74 73 Respiratory Rate 63 H 30 H 33 H Blood Pressure 96/53 L 90/53 L 103/50 L Pulse Oximetry 100 98 100 02/11/18 19:00 02/11/18 19:01 02/11/18 19:16 Temperature Pulse Rate 73 73 72 Respiratory Rate 25 H 28 H 24 Blood Pressure 102/66 102/66 87/54 L Pulse Oximetry 96 97 99 02/11/18 19:30 02/11/18 19:56 02/11/18 20:00 Temperature Pulse Rate 73 71 72 Respiratory Rate 27 H 34 H 30 H Blood Pressure 91/59 L 105/51 L 105/54 L Pulse Oximetry 97 98 98 02/11/18 20:15 02/11/18 20:30 02/11/18 20:41 Temperature 97.5 F L Pulse Rate 70 71 Respiratory Rate 26 H 26 H 24 Blood Pressure 105/57 L 105/56 L Pulse Oximetry 98 98 97 02/11/18 20:43 02/11/18 20:45 02/11/18 21:00 Temperature Pulse Rate 71 70 69 Respiratory Rate 22 23 23 Blood Pressure 104/57 L 108/56 L Pulse Oximetry 100 98 02/11/18 21:15 02/11/18 21:30 02/11/18 21:45 Temperature Pulse Rate 61 61 62 Respiratory Rate 23 37 H 12 Blood Pressure 101/54 L 103/50 L 112/57 L Pulse Oximetry 98 99 100 02/11/18 22:00 02/11/18 22:15 02/11/18 22:30 Temperature Pulse Rate 76 89 104 H Respiratory Rate 25 H 24 22 Blood Pressure 125/60 127/63 136/68 Pulse Oximetry 96 95 95 02/11/18 22:42 02/11/18 22:50 02/11/18 22:58 Temperature Pulse Rate 123 H 130 H Respiratory Rate 18 4 L 18 Blood Pressure 147/72 H 154/84 H Pulse Oximetry 95 96 92 L 02/11/18 23:00 02/11/18 23:10 02/11/18 23:20 Temperature Pulse Rate 130 H 122 H 96 H Respiratory Rate 0 L 0 L 0 L Blood Pressure 142/73 H 118/58 L 84/45 L Pulse Oximetry 94 L 94 L 95 02/11/18 23:30 02/11/18 23:37 02/11/18 23:40 Temperature Pulse Rate 88 88 86 Respiratory Rate 0 L 0 L 0 L Blood Pressure 79/41 L 101/54 L 99/54 L Pulse Oximetry 96 98 97 02/11/18 23:50 02/12/18 00:00 02/12/18 00:10 Temperature 97.4 F L Pulse Rate 83 82 82 Respiratory Rate 0 L 0 L 18 Blood Pressure 96/53 L 96/51 L 97/51 L Pulse Oximetry 97 97 97 02/12/18 00:20 02/12/18 00:30 02/12/18 00:40 Temperature Pulse Rate 84 84 80 Respiratory Rate 18 18 18 Blood Pressure 103/54 L 104/53 L 99/53 L Pulse Oximetry 97 97 97 02/12/18 00:50 02/12/18 01:00 02/12/18 01:10 Temperature Pulse Rate 79 78 78 Respiratory Rate 18 18 18 Blood Pressure 99/51 L 98/51 L 98/54 L Pulse Oximetry 98 98 98 02/12/18 01:20 02/12/18 01:30 02/12/18 01:40 Temperature Pulse Rate 78 77 77 Respiratory Rate 18 18 18 Blood Pressure 96/53 L 94/54 L 95/54 L Pulse Oximetry 98 98 98 02/12/18 01:50 02/12/18 02:00 02/12/18 02:10 Temperature Pulse Rate 77 77 77 Respiratory Rate 18 18 18 Blood Pressure 94/55 L 95/51 L 94/55 L Pulse Oximetry 98 98 98 02/12/18 02:20 02/12/18 02:30 02/12/18 03:18 Temperature Pulse Rate 78 78 79 Respiratory Rate 18 18 18 Blood Pressure 95/51 L 94/55 L Pulse Oximetry 98 98 98 02/12/18 03:20 02/12/18 03:30 02/12/18 03:40 Temperature Pulse Rate 80 82 82 Respiratory Rate 18 18 18 Blood Pressure 95/50 L 99/52 L 99/54 L Pulse Oximetry 98 98 98 02/12/18 03:50 02/12/18 04:00 02/12/18 04:10 Temperature 98.3 F Pulse Rate 83 85 83 Respiratory Rate 18 18 18 Blood Pressure 100/54 L 105/55 L 100/54 L Pulse Oximetry 98 98 97 02/12/18 04:20 02/12/18 04:30 02/12/18 04:40 Temperature Pulse Rate 84 86 87 Respiratory Rate 18 18 20 Blood Pressure 101/55 L 90/44 L 110/56 L Pulse Oximetry 98 97 98 02/12/18 04:50 02/12/18 05:00 02/12/18 05:10 Temperature Pulse Rate 86 92 H 88 Respiratory Rate 17 17 15 Blood Pressure 107/53 L 107/58 L 105/55 L Pulse Oximetry 100 99 99 02/12/18 05:20 02/12/18 05:30 02/12/18 05:40 Temperature Pulse Rate 87 87 87 Respiratory Rate 18 16 8 L Blood Pressure 104/53 L 102/52 L 102/55 L Pulse Oximetry 99 99 99 02/12/18 05:50 02/12/18 06:00 02/12/18 06:10 Temperature Pulse Rate 86 86 86 Respiratory Rate 5 L 7 L 12 Blood Pressure 102/53 L 101/50 L 102/53 L Pulse Oximetry 99 99 98 02/12/18 06:20 02/12/18 06:30 02/12/18 06:40 Temperature Pulse Rate 86 85 85 Respiratory Rate 12 8 L 13 Blood Pressure 101/53 L 100/53 L 101/53 L Pulse Oximetry 99 99 98 02/12/18 06:50 02/12/18 07:00 02/12/18 07:10 Temperature Pulse Rate 85 85 85 Respiratory Rate 8 L 12 11 L Blood Pressure 100/52 L 98/51 L 98/52 L Pulse Oximetry 99 99 99 02/12/18 07:20 02/12/18 08:00 02/12/18 08:33 Temperature 98.9 F Pulse Rate 87 88 91 H Respiratory Rate 13 15 15 Blood Pressure 99/55 L 101/53 L Pulse Oximetry 98 97 95 02/12/18 09:00 02/12/18 10:00 02/12/18 11:35 Temperature Pulse Rate 90 90 90 Respiratory Rate 15 15 15 Blood Pressure 97/50 L 99/55 L Pulse Oximetry 98 97 98 Intake & Output 02/11/18 02/12/18 02/12/18 18:59 06:59 18:59 Intake Total 2900 / 2900 3300 / 3300 558 / 558 Output Total 800 / 800 1600 / 1600 Balance 2100 / 2100 1700 / 1700 558 / 558 Weight 85.5 kg Intake: IV 2900 / 2900 3300 / 3300 558 / 558 D5W/1/2NS + KCL 20 mEq Inj 1, 1000 / 1000 2000 / 2000 558 / 558 000 ML @ 125 mls/hr IV.CONT . Q8H MARICRUZ Rx#:[id number] Diprivan 1000 mg/100 ml Inj 1, 200 / 200 300 / 300 000 mg In 100 ml @ 5 MCG/KG/MIN 1.769 mls/hr IV.CONT TITRATE PRN Rx#:[id number] Levophed-Dextrose 4 mg/250 ml 500 / 500 500 / 500 Drip 4 mg In 250 ml @ 2 MCG/MIN 7.5 mls/hr IV.SIG TITRATE PRN Rx#:[id number] Zosyn 3.375 GM Premix 50 ML @ 50 / 50 150 / 150 100 mls/hr IV.SIG Q6H MARICRUZ Rx#: [id number] NS Inj 1,000 ML @ 2000 mls/hr 1100 / 1100 IV.SIG Q30M MARICRUZ Rx#:[id number] Vancomycin Inj 1,000 MG In NS 250 / 250 Inj 250 ML @ 250 mls/hr IV.SIG Q18H MARICRUZ Rx#:[id number] Ancef 2 GM Premix Inj 2 gm In 50 / 50 100 / 100 50 ml @ 100 mls/hr IV.SIG Q8H MARICRUZ Rx#:[id number] Output: Urine Amount (Catheter) 800 / 800 1600 / 1600 Indwelling Urethral Catheter 800 / 800 1600 / 1600 Other: Date of Last Bowel Movement 02/11/18 02/11/18 02/11/18 # Incontinent Bowel Movements 2 0 02/10/18 18:20 Sputum - Oral Tracheal Aspirate Gram Stain - Final 02/10/18 18:20 Sputum - Oral Tracheal Aspirate Sputum Culture - Final Staphylococcus aureus 02/11/18 18:52 Blood - Peripheral Aerobic Blood Culture - Preliminary No growth in 1 day 02/11/18 18:52 Blood - Peripheral Anaerobic Blood Culture - Preliminary No growth in 1 day 02/11/18 14:29 Blood - Peripheral Aerobic Blood Culture - Preliminary No growth in 1 day 02/11/18 14:29 Blood - Peripheral Anaerobic Blood Culture - Final QNS - See aerobic report. 02/10/18 13:30 Catheterized Urine Urine Culture - Preliminary Staphylococcus aureus gram negative rods 02/10/18 09:55 Blood - Peripheral Aerobic Blood Culture - Final Staphylococcus aureus 02/10/18 09:55 Blood - Peripheral Anaerobic Blood Culture - Final Staphylococcus aureus 02/10/18 09:50 Blood - Peripheral Aerobic Blood Culture - Final Staphylococcus aureus 02/10/18 09:50 Blood - Peripheral Anaerobic Blood Culture - Final Staphylococcus aureus 02/10/18 13:30 Urine - Catheterized Urine Streptococcus pneumoniae Antigen ( M - Final Presumptive negative for streptococcus pneumoniae antigen, suggesting no current or recent infection. Infection due to Streptococcus pneumoniae cannot be ruled out since the antigen present in the sample may be below the detection limit of the test. 02/10/18 13:30 Urine - Random Urine Legionella Antigen - Final Presumptive negative for Legionella pneumophila serogroup 1 antigen in urine, suggesting no recent or recurrent infection. Infection due to Legionella cannot be ruled out since other serogroups and species may cause disease, antigen may not be present in urine in early infection, and the level of antigen present in the urine may be below the detection limit of the test. Lab - Hematology Results 02/11/18 02/12/18 03:40 04:16 WBC 20.1 H 25.5 H RBC 2.83 L 2.85 L Hgb 8.0 L 7.9 L Hct 23.9 L 24.3 L MCV 84.6 85.0 MCH 28.4 27.5 MCHC 33.5 32.4 RDW 15.5 16.1 Plt Count 142 L D 170 MPV 7.8 8.7 Neut % (Auto) 86.5 H Lymph % (Auto) 5.0 L Cache % (Auto) 7.8 Eos % (Auto) 0.4 Baso % (Auto) 0.3 Neut # (Auto) 17.4 H Lymph # (Auto) 1.0 Cache # (Auto) 1.6 H Eos # (Auto) 0.1 Baso # (Auto) 0.1 WBC Differential . Differential Comment Auto diff final Lab - Chemistry Results 02/10/18 02/10/18 02/10/18 11:21 14:06 17:09 Sodium Potassium Chloride Carbon Dioxide Anion Gap BUN Creatinine Estimated GFR POC Glucose 214 H Random Glucose Lactic Acid 1.1 Calcium Calcium Adj for Albumin Phosphorus Magnesium Total Bilirubin AST ALT Alkaline Phosphatase Total Creatine Kinase 369 H CK-MB (CK-2) 9.5 H CK-MB (CK-2) % 2.6 Troponin I Total Protein Albumin Lipase Beta HCG, Qual 02/10/18 02/10/18 02/11/18 20:56 21:51 03:35 Sodium Potassium Chloride Carbon Dioxide Anion Gap BUN Creatinine Estimated GFR POC Glucose 204 H 184 H Random Glucose Lactic Acid 2.6 H Calcium Calcium Adj for Albumin Phosphorus Magnesium Total Bilirubin AST ALT Alkaline Phosphatase Total Creatine Kinase CK-MB (CK-2) CK-MB (CK-2) % Troponin I Total Protein Albumin Lipase Beta HCG, Qual 02/11/18 02/11/18 02/11/18 03:40 03:40 08:44 Sodium 133 L Potassium 3.8 Chloride 102 D Carbon Dioxide 21.9 Anion Gap 9 BUN 25 H Creatinine 1.43 H Estimated GFR 42 L POC Glucose 165 H Random Glucose 166 H Lactic Acid 2.4 H Calcium 7.0 L* D Calcium Adj for Albumin 8.8 Phosphorus 4.5 Magnesium 2.4 Total Bilirubin 1.0 AST 597 H ALT 272 H Alkaline Phosphatase 126 H Total Creatine Kinase CK-MB (CK-2) CK-MB (CK-2) % Troponin I Total Protein 6.0 L D Albumin 1.8 L Lipase Beta HCG, Qual 02/11/18 02/11/18 02/11/18 12:05 18:43 21:00 Sodium Potassium Chloride Carbon Dioxide Anion Gap BUN Creatinine Estimated GFR POC Glucose 164 H 158 H 168 H Random Glucose Lactic Acid Calcium Calcium Adj for Albumin Phosphorus Magnesium Total Bilirubin AST ALT Alkaline Phosphatase Total Creatine Kinase CK-MB (CK-2) CK-MB (CK-2) % Troponin I Total Protein Albumin Lipase Beta HCG, Qual 02/12/18 02/12/18 02/12/18 04:15 04:25 08:11 Sodium 139 136 Potassium 4.2 4.5 Chloride 109 H 109 H Carbon Dioxide 19.1 L 19.2 L Anion Gap 11 8 BUN 25 H 24 H Creatinine 1.38 H 1.49 H Estimated GFR 44 L 40 L POC Glucose 219 H Random Glucose 207 H 283 H Lactic Acid Calcium 6.8 L* 7.2 L* Calcium Adj for Albumin 8.9 9.1 Phosphorus Magnesium 2.5 Total Bilirubin 0.7 AST 983 H ALT 723 H Alkaline Phosphatase 150 H Total Creatine Kinase 124 CK-MB (CK-2) CK-MB (CK-2) % Troponin I 1.59 H* D Total Protein 5.7 L Albumin 1.4 L 1.6 L Lipase 137 Beta HCG, Qual Less than 1.0 02/12/18 02/12/18 08:17 09:00 Sodium Potassium Chloride Carbon Dioxide Anion Gap BUN Creatinine Estimated GFR POC Glucose 214 H Random Glucose Lactic Acid 1.6 Calcium Calcium Adj for Albumin Phosphorus Magnesium Total Bilirubin AST ALT Alkaline Phosphatase Total Creatine Kinase CK-MB (CK-2) CK-MB (CK-2) % Troponin I Total Protein Albumin Lipase Beta HCG, Qual Imaging: ITS Impressions Head CT 02/11/18 00:00 CONCLUSION: 1. There is bilateral cytotoxic edema, as above, consistent with areas of recent ischemia. 2. The mass effect from the right-sided edema results in 3 mm of [id number] midline shift. No acute blood products are identified. . Chest X-Ray 02/11/18 08:31 CONCLUSION: Persistent bibasilar airspace disease with significant consolidation in the left base. Additional support devices as described. No significant improvement compared to prior study. Head MRI 02/11/18 12:20 CONCLUSION: 1. Bilateral large areas of restricted diffusion, right larger than left, as above. These represent areas of recent ischemia. There are no findings to indicate hemorrhagic transformation. 2. The mass effect from the right-sided edema results and 3 mm of right-to- left midline shift. 3. No abscess is identified. CT CAD 02/11/18 16:24 CONCLUSION: Physiological brain perfusion parameters with RAPID analysis as above. The decision for consideration of therapy is multi factorial and multi disciplinary relying on subjective and objective clinical data. This data is not construed or intended to be the sole determinant of treatment eligibility. Head CTA 02/11/18 16:26 CONCLUSION: 1. 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 2. Occlusion of the more distal M2 branch at the left middle cerebral artery supplying the left parietal lobe. . Neck CTA 02/11/18 16:26 CONCLUSION: 1. No abnormality is identified within the neck arterial vasculature. 2. There are small partially visualized bilateral pleural effusions with adjacent compressive atelectasis. Additionally, there are nodular areas of peripheral consolidation in both upper lobes. 3. Pericardial effusion and/or mediastinal edema. 4. Please note that the left IJ central line distal tip extends into the azygos vein. Physical Exam: GENERAL: Sedated, on the vent, NAD SKIN: Evidence of IVDA cuts and needle cantu. Purple discoloration of toes and evidence of septic microemboli. HEAD: Atraumatic. Normocephalic. No temporal or scalp tenderness. EYES: Pupils equal round and reactive. Scleral icterus. No injection or drainage. No petechia ENT: Orally intubated NECK: Trachea midline. Supple, nontender, no meningeal signs. CARDIOVASCULAR: HS audible. RESPIRATORY: Air entry equal bilaterally. Clear to auscultation bilaterally. GASTROINTESTINAL: Abdomen soft,NT MUSCULOSKELETAL: Extremities without clubbing, cyanosis. NEUROLOGICAL: Sedated, Moves all 4 extremities on painful stimuli, LUE sluggish. Psych could not be assessed IV line sites ok. Assessment and Plan - Plan Septic Shock with Multiorgan involvement (resp, cvs, [employer]) Staph aureus bacteremia, Endocarditis of aortic valve. Staph in urine likely from bacterial translocation. Acute resp failure on vent Pneumonia aspiration vs septic emboli to lungs. Bilateral large MCA territory Cerebral septic emboli with mass effect/ Acute metabolic encephalopathy: sepsis, meningitis from cerebral septic emboli/ Acute renal failure: sepsis, prerenal. Recs Continue Zosyn IV DC Vanco IV (target 15-20) no MRSA identified. Continue Ancef IV for possible MSSA. Follow cultures follow clinical course. Will follow along Case dw RN Case dw prognosis guarded. Family now involved and up to date on findings.
--- NOTE | 2018-02-12 13:39 | P.DIET ---
Nutritional Evaluation Type of nutrition evaluation: initial Nutrition consult regarding: Tube Feeding Screening comments: 02/12 TF review Objective - Diagnosis sepsis, hyponatremia, opiod withdrawl - Objective Body Mass Index: 28.7 % IBW: 134 (IBW = 140lb) Body Weight Used for Calculations: IBW Energy Needs - Lower Range (kCal/kg): 25 Energy Needs - Upper Range (kCal/kg): 30 Lower Limit kCal/kg (kCals): 1,590 Upper Limit kCal/kg (kCals): 1,909 Lower Limit Protein Factor (Grams per Kg): 1.1 Upper Limit Protein Factor (Grams per Kg): 1.3 Lower Protein Needs (Protein): 70 Upper Protein Needs (Protein): 83 Dietitian Reviewed in Medical Record: Curent medications, Intake & Output, Labs , Medical history, Tube feeding Diet Order: TF Objective Comments: Meds: propofol Labs: BUN 24, Cr 1.49, GFR 40, POC glucose 168 214 177, troponin I 1.59 Assessment Assessment: Pt intubated, sedated w/ propofol, on mech vent. Pt receiving Vital 1.5 @ 50mL/ hr. RD agree w/ TF of Vital 1.5 @ 50mL/hr to provide 1800kcal, 81g of protein, and 917mL of free water. Additional kcal (1.1mL/hr) provided from propofol when running. Continue to monitor TF tolerance. Labs reviewed, dietitian following. Recommendations: 1. Pt receiving Vital 1.5 @ 50mL/hr. RD agree w/ TF 2. Additional kcal (1.1mL/hr) provided from propofol when running 3. Continue to monitor TF tolerance 4. Dietitian following Dietitian to Monitor: Lab values, Renal labs, Glucose level, Intake & Output, Tube feeding tolerance, Medical course
[2018-02-12] MEDS ORDERED: Pharmacy Ordered Lab Info OTHER ONE (15:45)
[2018-02-12] MEDS: Vasopressin Inj 40 UNIT in Sodium Chlor 0.9% Inj 98 ML IV.CONT SCH (17:45)
[2018-02-13] MEDS: Artificial Tears Opth Drops 15 ML Bottle EACH EYE SCH ×2 (00:20→07:54)
[2018-02-13] MEDS: Piperacil/Tazo 3.375 GM Premix 50 ML IV.SIG SCH ×2 (00:21→05:19)
[2018-02-13] MEDS: Insulin NovoLOG Aspart Correctional Sugar Inj SQ SCH ×2 (00:22→05:24)
--- NOTE | 2018-02-13 05:05 | XR ---
EXAM DATE: 02/13/2018 4:38 AM EST AGE/SEX: 32 years / Female INDICATIONS: Shortness of breath, possible pulmonary disease. CLINICAL DATA: This is the patient's subsequent encounter. Patient reports that signs and symptoms h ave been present for 3 days and indicates a pain score of Nonresponsive. MEDICAL/SURGICAL HISTORY: Non-responsive. Non-responsive. COMPARISON: 02/11/2018. FINDINGS: Single AP view the chest. Endotracheal tube, nasogastric tube remain in place. Left IJ central venous catheter also remains in place with the tip of the catheter in the region of the proximal SVC. Incre ased bilateral lower lung zone predominant pulmonary opacity and new bilateral small pleural effusion s. Cardiac silhouette is enlarged but unchanged. CONCLUSION: Increased bilateral lower lung zone predominant pulmonary opacity that likely represents pulmonary ed adán along with new bilateral pleural effusions. Electronically signed by: Nader Gannon MD 02/13/2018 5:03 AM EST
[2018-02-13] MEDS: ceFAZolin 2 GM Premix Inj 2 GM/50 ML PIGGYBACK IV.SIG SCH (05:19)
[2018-02-13 05:25] LABS: Baso # (Auto) 0.1 th/mm3 (0.0-0.2); Baso % (Auto) 0.5 % (0.0-2.0); Eos # (Auto) 0.5 th/mm3 (0.0-0.4); Eos % (Auto) 1.8 % (0.0-4.0); Hematocrit 23.5 % (35.0-46.0); Hemoglobin 7.5 gm/dL (11.6-15.3); Lymph # (Auto) 2.1 th/mm3 (1.0-4.8); Lymph % (Auto) 8.2 % (9.0-44.0); Mean Corpuscular HGB Conc 32.1 % (32.0-36.0); Mean Corpuscular Hemoglobin 27.8 pg (27.0-34.0); Mean Corpuscular Volume 86.4 fL (80.0-100.0); Mean Platelet Volume 8.3 fL (7.0-11.0); Mono # (Auto) 1.2 th/mm3 (0.0-0.9); Mono % (Auto) 4.7 % (0.0-8.0); Neut # (Auto) 21.4 th/mm3 (1.8-7.7); Neut % (Auto) 84.8 % (16.0-70.0); Platelet Count 226 th/mm3 (150-450); Red Blood Count 2.72 mil/mm3 (4.00-5.30); Red Cell Distribution Width 16.1 % (11.6-17.2); White Blood Count 25.2 th/mm3 (4.0-11.0)
[2018-02-13 05:46] LABS: Activated Partial Thrombo Time 27.6 sec (23.4-31.7)
[2018-02-13 05:57] LABS: Alanine Aminotransferase 223 U/L (10-53); Albumin 1.4 g/dL (3.4-5.0); Alkaline Phosphatase 190 U/L (45-117); Anion Gap 10 meq/L (5-15); Aspartate Aminotransferase 239 U/L (15-37); Blood Urea Nitrogen 31 mg/dL (7-18); Calcium 7.5 mg/dL (8.5-10.1); Carbon Dioxide 20.2 meq/L (21.0-32.0); Chloride 106 meq/L (98-107); Glomerular Filtration Rate 26 mL/min (>89); Glucose,Random 162 mg/dL (74-106); Magnesium 2.4 mg/dL (1.5-2.5); Potassium 3.7 meq/L (3.5-5.1); Sodium 136 meq/L (136-145); Total Protein 5.8 g/dL (6.4-8.2)
[2018-02-13 07:14] LABS: Eosinophils 5 % (0-4); Lymphocytes 5 % (9-44); Metamyelocytes 2 % (0-1); Monocytes 3 % (0-8); Myelocytes 2 % (0-0)
[2018-02-13 07:15] LABS: Platelet Estimate Normal (Normal); Platelet Morphology Normal (Normal); Toxic Granulation 1+
--- NOTE | 2018-02-13 07:22 | P.PNCC ---
Subjective Subjective Remarks/Hospital Course: 32-year-old female that presented to [facility] emergency department with drug withdrawal symptoms. The patient reported to the ED physician Dr. Dwyer that she is a IV drug abuser and normally utilizes heroin but has been withdrawing. The patient was noted to be in rigors. Laboratory and imaging studies were performed the patient was noted to have a lactic acid of 4. Initial troponin was significantly elevated at 4. Cardiology was consulted and a stat transthoracic echo was performed which noted a vegetation on the aortic valve. Cardiology was consulted. In the ED the patient received prophylactic antibiotics vancomycin and Zosyn as well as 2 mg of Ativan. All information obtained from medical records upon my examination the patient was not responding to questions. In the ED the patient was noted to be diaphoretic , tachycardic, copious diarrhea. Critical care medicine was consulted 02/11: Patient was intubated yesterday for worsening respiratory failure and severe sepsis. Currently intubated sedated with propofol and Precedex remains tachypneic on the vent. Requiring Levophed at 11 mcg/min to maintain map above 65. Remains very critical. 2D echo shows mild mitral valve regurgitation. Mild thickening of the aortic valve leaflets. Moderate aortic valve regurgitation. Suspect aortic valve endocarditis. With aortic valve endocarditis and moderate aortic regurgitation prognosis remains guarded 02/12: Noted bilateral MCA CVAs with occlusion. Decision made not to adequately explored stent retrieval due to high risk of hemorrhagic conversion. Remains unresponsive on the ventilator. Will initiate tube feeding today. On weaning sedation patient becomes dyssynchronous with the ventilator SUBJECTIVE: 02/13: DNR status. Stat CT brain ordered. Will discuss options with palliative care. Worsening renal and hepatic failure Objective Vital Signs / I&O: Vital Signs 02/12/18 07:20 02/12/18 08:00 02/12/18 08:30 Temperature 98.9 F Pulse Rate 87 88 91 H Respiratory Rate 13 15 15 Blood Pressure 99/55 L 101/53 L 100/51 L Pulse Oximetry 98 97 96 02/12/18 08:33 02/12/18 08:40 02/12/18 08:50 Temperature Pulse Rate 91 H 90 91 H Respiratory Rate 15 15 15 Blood Pressure 99/52 L 98/51 L Pulse Oximetry 95 96 97 02/12/18 09:00 02/12/18 09:10 02/12/18 09:20 Temperature Pulse Rate 90 91 H 91 H Respiratory Rate 15 15 15 Blood Pressure 97/50 L 100/54 L 100/54 L Pulse Oximetry 97 97 97 02/12/18 09:30 02/12/18 09:40 02/12/18 09:50 Temperature Pulse Rate 91 H 91 H 90 Respiratory Rate 15 15 15 Blood Pressure 100/52 L 99/51 L 99/50 L Pulse Oximetry 98 98 98 02/12/18 10:00 02/12/18 10:10 02/12/18 10:20 Temperature Pulse Rate 90 90 90 Respiratory Rate 15 15 15 Blood Pressure 99/55 L 98/53 L 99/53 L Pulse Oximetry 97 98 97 02/12/18 10:30 02/12/18 10:40 02/12/18 10:50 Temperature Pulse Rate 90 90 90 Respiratory Rate 15 15 15 Blood Pressure 99/52 L 97/53 L 98/52 L Pulse Oximetry 97 98 98 02/12/18 11:00 02/12/18 11:10 02/12/18 11:16 Temperature Pulse Rate 90 82 91 H Respiratory Rate 15 15 15 Blood Pressure 97/50 L 82/41 L 97/54 L Pulse Oximetry 99 100 99 02/12/18 11:20 02/12/18 11:30 02/12/18 11:35 Temperature Pulse Rate 91 H 90 90 Respiratory Rate 15 15 15 Blood Pressure 96/52 L 93/53 L Pulse Oximetry 97 98 98 02/12/18 11:40 02/12/18 11:50 02/12/18 12:00 Temperature 98.4 F Pulse Rate 90 91 H 91 H Respiratory Rate 15 15 16 Blood Pressure 94/53 L 95/54 L 93/48 L Pulse Oximetry 99 98 97 02/12/18 12:10 02/12/18 12:20 02/12/18 13:00 Temperature Pulse Rate 91 H 91 H 90 Respiratory Rate 15 15 15 Blood Pressure 93/48 L 92/48 L 93/53 L Pulse Oximetry 100 100 100 02/12/18 14:00 02/12/18 15:00 02/12/18 15:28 Temperature Pulse Rate 88 89 91 H Respiratory Rate 15 15 15 Blood Pressure 93/47 L 92/49 L Pulse Oximetry 99 99 100 02/12/18 16:00 02/12/18 17:00 02/12/18 18:00 Temperature 98.3 F Pulse Rate 93 H 90 88 Respiratory Rate 15 15 17 Blood Pressure 98/51 L 89/46 L 102/53 L Pulse Oximetry 99 99 95 02/12/18 20:00 02/12/18 20:15 02/12/18 20:19 Temperature 96.9 F L Pulse Rate 90 89 Respiratory Rate 15 15 Blood Pressure 63/33 L 82/44 L Pulse Oximetry 99 100 02/12/18 22:00 02/12/18 23:45 02/13/18 00:00 Temperature 97.0 F L Pulse Rate 87 87 88 Respiratory Rate 15 15 Blood Pressure 86/47 L Pulse Oximetry 100 100 02/13/18 03:06 02/13/18 03:40 02/13/18 04:00 Temperature 98.0 F Pulse Rate 89 92 H Respiratory Rate 15 15 15 Blood Pressure 83/45 L Pulse Oximetry 100 99 Intake & Output 02/12/18 02/13/18 02/13/18 18:59 06:59 18:59 Intake Total 2193 / 2193 2114 / 2114 Output Total 1400 / 1400 200 / 200 Balance 793 / 793 1914 / 1914 Weight 85.8 kg Intake: IV 2093 / 2093 1600 / 1600 D5W/1/2NS + KCL 20 mEq Inj 1, 558 / 558 000 ML @ 125 mls/hr IV.CONT . Q8H MARICRUZ Rx#:[id number] Diprivan 1000 mg/100 ml Inj 1, 135 / 135 000 mg In 100 ml @ 5 MCG/KG/MIN 1.769 mls/hr IV.CONT TITRATE PRN Rx#:[id number] Sodium Bicarbonate 8.4% Inj 50 1000 / 1000 1000 / 1000 MEQ In 1/2 Normal Saline Inj 950 ML @ 125 mls/hr IV.CONT . Q8H [facility] Rx#:[id number] Levophed-Dextrose 4 mg/250 ml 250 / 250 500 / 500 Drip 4 mg In 250 ml @ 2 MCG/MIN 7.5 mls/hr IV.SIG TITRATE PRN Rx#:[id number] Zosyn 3.375 GM Premix 50 ML @ 100 / 100 50 / 50 100 mls/hr IV.SIG Q6H [facility] Rx#: [id number] Ancef 2 GM Premix Inj 2 gm In 50 / 50 50 / 50 50 ml @ 100 mls/hr IV.SIG Q8H [facility] Rx#:[id number] Tube Feeding 60 / 60 314 / 314 Tube Irrigant 40 / 40 Water Bolus Amount 200 / 200 Output: Urine Amount (Catheter) 1400 / 1400 200 / 200 Indwelling Urethral Catheter 1400 / 1400 200 / 200 Other: Date of Last Bowel Movement 02/11/18 02/11/18 # Bowel Movements 0 Result Diagrams: 02/13/18 05:10 02/13/18 05:10 Other Results: Microbiology 02/10/18 13:30 Catheterized Urine Urine Culture - Preliminary Staphylococcus aureus gram negative rods 02/10/18 18:20 Sputum - Oral Tracheal Aspirate Gram Stain - Final 02/10/18 18:20 Sputum - Oral Tracheal Aspirate Sputum Culture - Final Staphylococcus aureus 02/11/18 18:52 Blood - Peripheral Aerobic Blood Culture - Preliminary No growth in 1 day 02/11/18 18:52 Blood - Peripheral Anaerobic Blood Culture - Preliminary No growth in 1 day 02/11/18 14:29 Blood - Peripheral Aerobic Blood Culture - Preliminary No growth in 1 day 02/11/18 14:29 Blood - Peripheral Anaerobic Blood Culture - Final QNS - See aerobic report. 02/10/18 09:55 Blood - Peripheral Aerobic Blood Culture - Final Staphylococcus aureus 02/10/18 09:55 Blood - Peripheral Anaerobic Blood Culture - Final Staphylococcus aureus 02/10/18 09:50 Blood - Peripheral Aerobic Blood Culture - Final Staphylococcus aureus 02/10/18 09:50 Blood - Peripheral Anaerobic Blood Culture - Final Staphylococcus aureus 02/10/18 13:30 Urine - Catheterized Urine Streptococcus pneumoniae Antigen ( M - Final Presumptive negative for streptococcus pneumoniae antigen, suggesting no current or recent infection. Infection due to Streptococcus pneumoniae cannot be ruled out since the antigen present in the sample may be below the detection limit of the test. 02/10/18 13:30 Urine - Random Urine Legionella Antigen - Final Presumptive negative for Legionella pneumophila serogroup 1 antigen in urine, suggesting no recent or recurrent infection. Infection due to Legionella cannot be ruled out since other serogroups and species may cause disease, antigen may not be present in urine in early infection, and the level of antigen present in the urine may be below the detection limit of the test. Imaging: Chest X-Ray 02/10/18 09:43 CONCLUSION: 1. Platelike airspace disease at the lung bases bilaterally, presumably atelectasis. Differential considerations include pneumonia and aspiration in the appropriate clinical setting. Chest X-Ray 02/10/18 13:34 CONCLUSION: 1. Endotracheal tube in appropriate position with tip measuring 4.8 cm from the radha. 2. Left IJ central line distal tip in the SVC without pneumothorax. 3. The nasogastric tube should be advanced the stomach. 4. Stable bibasilar opacity. Head CT 02/11/18 00:00 CONCLUSION: 1. There is bilateral cytotoxic edema, as above, consistent with areas of recent ischemia. 2. The mass effect from the right-sided edema results in 3 mm of [id number] midline shift. No acute blood products are identified. . Chest X-Ray 02/11/18 08:31 CONCLUSION: Persistent bibasilar airspace disease with significant consolidation in the left base. Additional support devices as described. No significant improvement compared to prior study. Head MRI 02/11/18 12:20 CONCLUSION: 1. Bilateral large areas of restricted diffusion, right larger than left, as above. These represent areas of recent ischemia. There are no findings to indicate hemorrhagic transformation. 2. The mass effect from the right-sided edema results and 3 mm of right-to- left midline shift. 3. No abscess is identified. CT CAD 02/11/18 16:24 CONCLUSION: Physiological brain perfusion parameters with RAPID analysis as above. The decision for consideration of therapy is multi factorial and multi disciplinary relying on subjective and objective clinical data. This data is not construed or intended to be the sole determinant of treatment eligibility. Head CTA 02/11/18 16:26 CONCLUSION: 1. 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 2. Occlusion of the more distal M2 branch at the left middle cerebral artery supplying the left parietal lobe. . Neck CTA 02/11/18 16:26 CONCLUSION: 1. No abnormality is identified within the neck arterial vasculature. 2. There are small partially visualized bilateral pleural effusions with adjacent compressive atelectasis. Additionally, there are nodular areas of peripheral consolidation in both upper lobes. 3. Pericardial effusion and/or mediastinal edema. 4. Please note that the left IJ central line distal tip extends into the azygos vein. Chest X-Ray 02/13/18 06:00 CONCLUSION: Increased bilateral lower lung zone predominant pulmonary opacity that likely represents pulmonary edema along with new bilateral pleural effusions. Objective Remarks: GENERAL: 32-year-old female currently resting in bed critically orotracheally intubated SKIN: Warm and dry. No rash HEAD: Atraumatic. Normocephalic. EYES: Pupils equal and round. No scleral icterus. No injection or drainage. ENT: No nasal bleeding or discharge. Mucous membranes pink and moist. NECK: Trachea midline. No JVD. CARDIOVASCULAR: Regular rate and rhythm., S1, S2. No S4. Murmur RESPIRATORY: No accessory muscle use. Clear to auscultation. Breath sounds equal bilaterally. GASTROINTESTINAL: Abdomen soft, non-tender, nondistended. Hepatic and splenic margins not palpable. MUSCULOSKELETAL: Extremities without clubbing, cyanosis, or edema. No obvious deformities. NEUROLOGICAL: Unresponsive. No gag or cough. Minimal corneal reflex. Does not withdraw to pain. Assessment and Plan - Assessment and Plan Plan: Neuro/Psych: IV drug abuse-heroin History of polysubstance abuse including methamphetamines and cocaine Acute opioid withdrawal Bilateral MCA CVA Sedated with propofol drip at 50 madhuri grams per kilogram per minute and as needed dexmedetomidine infusion Acetaminophen by NG tube 650 mg every [address] angiogram of the brain revealed posterior right MCA occlusion and left MCA occlusion. [employer] Manager yesterday discussed with Dr. Colindres. Decision not for stent retrieval/anticoagulant due to high risk of hemorrhagic conversion with embolic stroke Recent CT brain revealed right left shift 3 mm.. Recheck today 02/13 Neurochecks Respiratory: Acute respiratory failure Left lower lobe infiltrate/pneumonia 02/10 patient intubated 7.5 ETT at 22 cm at the lip for airway protection and adequate ventilation ABGs post intubation 7.27/ 40 / 93/19/-6 Chest x-ray shows left lower lobe infiltrate Albuterol/ipratropium aerosols every 4 hours with albuterol aerosols every 2 hours as needed Follow-up on chest x-ray in a.m. 12/ Cardiovascular: Septic shock Aortic regurgitation Aortic valve vegetation Elevated troponin ? Coronary artery emboli Currently on norepinephrine drip at 8 mcg/min for septic shock On one half normal saline with 1 ampicillin bicarbonate 125 cc an hour Initial troponin 7 .29, follow-up serial troponin declined down to 1.5 TTEcho-EF 55percent, moderate aortic regurgitation, mild MR, mild TR, small pericardial effusion, vegetation aortic valve, PASP [address] Jitendra following as needed. ROSANNA with 11 x 14 left cusp aortic valve vegetation /renal: AK I Patient extremely dehydrated need close monitoring at this time -- Strict I/Os FEN/GI: Diarrhea Transaminitis Gastroenteritis secondary to opioid/heroin withdrawal History of Salmonella enteritis Protein calorie malnutrition Hepatitis C IgG antibody positive Patient bolused with 2 L normal saline IV fluid, give additional 2 L bolus Central line placed CVP monitoring medication administration and to obtain labs. Electrolyte replacement per ICU protocol Start tube feeding vital 1.5 goal 50 cc an hour Currently on one half normal saline with 50 mEq of bicarbonate 125 cc an hour. Discontinued today Lansoprazole for GI prophylaxis Heme/ID: Sepsis -staph aureus bacteremia, sputum, UTI with E. 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 Discontinue vancomycin 02/12 Follow-up blood culture 02/10 coag negative staph aureus. Sputum staph aureus. Urine staph aureus coli. Repeat blood cultures 02/11 pending Obtain urine culture, sputum culture Consult ID following Endocrine: Glucose monitoring per ICU protocol -- SSI with aspart insulin every 6 hours Prophylaxis: GI Prophylaxis Lansoprazole DVT Prophylaxis -- SCDs Heparin 5000 units twice daily Lines: Left IJ placed for central venous access 02/10 Critical care time 35 minutes follow-up Code Status: DNR Discussed Condition With: Mother and father yesterday. Will attempt to speak again today
[2018-02-13] MEDS: Vasopressin Inj 40 UNIT in Sodium Chlor 0.9% Inj 98 ML IV.CONT SCH (07:53)
[2018-02-13] MEDS: Chlorhexidine Gluconate 2% 1 Pack (2 Cloths) TOPICAL SCH (07:54)
--- NOTE | 2018-02-13 08:41 | CT ---
EXAM DATE: 02/13/2018 8:28 AM EST AGE/SEX: 32 years / Female INDICATIONS: Follow up CVA CLINICAL DATA: This is the patient's subsequent encounter. Patient reports that signs and symptoms h ave been present for 2 days and indicates a pain score of Nonresponsive. MEDICAL/SURGICAL HISTORY: None. None. RADIATION DOSE: 33.69 CTDI (mGy) [place]PAR[place]: [facility] [place] W 3D, 02/11/2018. . TECHNIQUE: CT of the head without contrast. Using automated exposure control and adjustment of the mA and/or kV according to patient size, radiation dose was kept as low as reasonably achievable to ob tain optimal diagnostic quality images. DICOM format image data is available electronically for revi ew and comparison. FINDINGS: There is a large evolving infarct involving most of the right hemisphere. Evolving edema is present i n the left posterior sylvian region and now in the brainstem. There is effacement of the cortical sul ci in normal alicea-white matter differentiation. Ventricles are small. There are no extra-axial fluid collections appreciated. CONCLUSION: 1. Significant deterioration in the appearance of the brain as described above with large evolving i nfarct involving most of the right hemisphere and the left posterior sylvian region. 2. Brain STEM would appear to be involved now as well Electronically signed by: Luis Angel Connolly MD 02/13/2018 8:39 AM EST
[2018-02-13] MEDS ORDERED: Polyethylene Glycol 3350 17 GM Packet PO SCH (09:00)
[2018-02-13] MEDS ORDERED: Senna/Docusate Sodium 8.6/50 MG Tablet PO SCH (09:00)
[2018-02-13] MEDS: Heparin - SQ 10,000 UNITS/ML Vial SQ SCH (09:31)
--- NOTE | 2018-02-13 10:24 | P.CONPAL ---
Consult Service: Palliative Care Requesting Physician: Rene Quintana Reason for Consult: a. To assist with evaluation and management of symptoms including: pain, altered mental status b. To assist medical decision maker(s) with: better understanding of current medical conditions; weighing benefits/burdens of medical treatment options; making medical treatment decisions. Primary Care Provider: No Primary Care Physician History of Present Illness History of Present Illness: Ms. Brunson is a 32-year-old female with a known history of IV drug abuse who presented to [facility] on 02/10/2018 with complaints of withdrawal symptoms. Patient stated she was trying to quit IV heroin and had not used for a few days.. Reported symptoms included generalized weakness, fever, chills, nausea/ vomiting and diarrhea. IV access was obtained and blood work was sent for analysis. Diagnostic data: * Vital signs: Pulse 126, respirations 34, BP 121/77, oxygen saturation 94% on room air, oral temperature 98.5 * WBC: 26.6, hemoglobin 9.7, hematocrit 30.4, platelets 212, neutrophils 92.7% * PT: 14.8, INR 1.5, APTT 33.1 * Sodium: 125, potassium 3.2, chloride 93, carbon dioxide 20.0, glucose 241, calcium 8.0 * BUN: 21, creatinine 1.35, GFR 45 * Lactic acid: 4.0 * Bilirubin: 0.6, AST 346, ALT 173, alkaline phosphatase 197 * Troponin: 7.29 * Total protein: 7.5, albumin 2.0 * Urine drug screen was negative * Hep C IgG AB: Reactive * Chest x-ray with platelike airspace disease at the lung bases bilaterally, presumably atelectasis. Differential considerations include pneumonia and aspiration in the appropriate clinical setting. * Blood culture growing staph aureus * Urine culture with staph aureus and E. coli Septic workup initiated. Patient received prophylactic antibiotics Vancomycin and Zosyn as well as Lorazepam to assist with withdrawal symptoms. Patient was admitted to the intensive care unit for ongoing evaluation and medical management. She was intubated for worsening respiratory failure and severe sepsis, requiring pressor support. EKG showing sinus tachycardia with nonspecific ST elevation; patient's initial troponin level was elevated at 7.29. Cardiology was consulted;2D echo showed a suspected aortic valve vegetation with moderate aortic regurgitation. Blood cultures and urine cultures on admission were + Staph Coag concerning for MSSA or MRSA ID pending. Infectious disease was consulted for evaluation and management of severe sepsis Patient noted to have LUE weakness on 02/11/2018 with concerns for cerebral septic emboli. MRI of the head on 02/11/2018 showed large areas with recent ischemia bilaterally. Mass-effect from the right sided edema with 3 mm right to left midline shift. Neurology was consulted. * CTA head revealed occlusion of the proximal right middle cerebral artery with no significant vascular flow seen in the right middle cerebral artery territory ; occlusion of the more distal M2 branch of the left middle cerebral artery supplying the left parietal lobe. * CTA neck identified no abnormalities within the neck arterial vasculature. There was a small partially visualized bilateral pleural effusions with adjacent compressive atelectasis. Additionally, there were nodular areas of peripheral consolidation in both upper lobes. Pericardial effusion and/or a mediastinal edema. Patient with very large bilateral infarctions, right > left with no hemorrhage. She has a proximal occlusion of the right MCA with a mismatch on the diffusion images. Given the bilateral nature of the strokes. Overall prognosis is quite poor. Dr. Colindres (neurology) collaborated with Dr. Garay ( radiology) and the fbi profiler, Dr. Burk. Due to the bilateral nature of the strokes and the high risk of hemorrhagic conversion, conservative management was recommended. Stat CT this morning 02/13/2018 showed significant deterioration in the appearance of the brain with a large evolving infarct that involves most of the right hemisphere in the left posterior sylvian region. The brainstem appears to be involved. Palliative Care was consulted to assist with symptom management and to discuss with the family the benefits and burdens of her current illnesses and the options regarding future care. Met patient's father and mother at bedside to discuss patient's medical conditions with grim prognosis. Dr. Quintana was present for a portion of our conversation. The patient's parents do not want to prolong the patient's suffering any longer. The process of compassionate withdrawal of artificial life support was discussed at length, and the patient's parents want to proceed as soon as possible. Exhibit C was signed by 2 physicians. Upon returning to the patient's room to have the parents sign Exhibit B, patient was found to be imminent with a heart rate in the 40s and a blood pressure in the 40s over 60s. Oxygen saturation was 72% on mechanical ventilation with FiO2 of 40%. Patient is at NO CODE/DNR. Chaplain Crandall was at bedside with the patient' s mother. Attempted to contact patient's father at [phone]. Patient passed peacefully with mother at bedside; mother notified patient's father at a different phone number. Function/Cognitive Trajectory: Patient has a known history of IV drug use. She was attempting to get clean on her own when she presented to the ED with withdrawal symptoms. Review of Systems unobtainable due to endotracheal tube PMFSH - History History Provided By: Patient - Medical History Medical History: Medical History (Last Reviewed 02/13/18 @ 13:01 by WALTER Laura) Depression Polysubstance abuse - Surgical History Surgical History: Surgical History (Last Updated 02/13/18 @ 13:01 by WALTER Lauar) History of colonoscopy (Acute) - Family History Family History: Family History (Last Updated 02/13/18 @ 09:33 by WALTER Laura) Mother Crohns disease - Social History I have reviewed the patient's Social History: Yes - Tobacco History Second Hand Smoke Exposure: Yes Tobacco Use In Past 30 Days: Yes Smoking Status: Current every day smoker Tobacco Type: Cigarettes - Alcohol History How Often Do You Have a Drink Containing Alcohol: Never - Substance Use History Substance History: Active Abuse - Substance Use Type Heroin Status: Active Route Used: Intravenously Last Used: couple days ago Reason for Use: Calm Down, Curiosity, Feels Good - Travel History Recent Travel in the [place] Within the Last 8 Weeks: No Recent Travel Out of the Country Within the Last 8 Weeks: No - Immunization History Tetanus Immunization: <5 Years Medications and Allergies Active Medications: Active Medications Albuterol (Duoneb Neb ([facility])) 1 ampul NEB Q4HR NEB [facility] Last Admin: 02/13/18 08:34 Dose: 1 ampul Albuterol (Albuterol Neb (Prn)) 2.5 mg NEB Q2HR NEB PRN PRN Reason: DYSPNEA Artificial Tears (Tears Naturale Opth Drops) 1 drop EACH EYE Q8H [facility] Last Admin: 02/13/18 07:54 Dose: 1 drop Bisacodyl (Dulcolax Supp) 10 mg RECTAL DAILY PRN PRN Reason: SEVERE CONSITIPATION Chlorhexidine Gluconate (Chlorhexidine 2% Cloth) 3 pack TOPICAL DAILY@0400 [facility] Stop: 02/16/18 03:59 Last Admin: 02/13/18 07:54 Dose: Not Given Chlorhexidine Gluconate (Chlorhexidine 2% Cloth) 3 pack TOPICAL DAILY@0400 PRN PRN Reason: Extra cloth needed Stop: 02/16/18 03:59 Dextrose (D50w Vial) 50 ml IV.PUSH UNSCH PRN PRN Reason: PER HYPOGLYCEMIA PROTOCOL Glucagon (Glucagon Inj) 1 mg OTHER PRN PRN PRN Reason: for Hypoglycemia Protocol Heparin Sodium (Porcine) (Heparin Inj) 5,000 units SQ Q12HR [facility] Last Admin: 02/12/18 21:20 Dose: 5,000 units Propofol (Diprivan 1000 Mg/100 Ml Inj) 1,000 mg in 100 mls @ 1.769 mls/hr IV.CONT TITRATE PRN; Protocol PRN Reason: Per Protocol Last Titration: 02/12/18 14:20 Dose: Infused Norepinephrine Bitartrate (Levophed-Dextrose 4 Mg/250 Ml Drip) 4 mg in 250 mls @ 7.5 mls/hr IV.SIG TITRATE PRN; Protocol PRN Reason: Per Protocol Last Admin: 02/13/18 03:40 Dose: 12 mcg/min, 45 mls/hr Dexmedetomidine HCl 1,000 mcg/ (Sodium Chloride) 250 mls @ 2.94 mls/hr IV.CONT TITRATE PRN; Protocol PRN Reason: Per Protocol Last Titration: 02/11/18 07:30 Dose: 0 mcg/kg/hr, 0 mls/hr Vasopressin 40 unit/ Sodium (Chloride) 100 mls @ 6 mls/hr IV.CONT CONT [facility]; Protocol Last Admin: 02/13/18 07:53 Dose: 0.04 units/min, 6 mls/hr Piperacillin/Tazobactam/Dextrose (Zosyn 3.375 Gm Premix) 50 mls @ 100 mls/hr IV.SIG Q6H [facility] Last Infusion: 02/13/18 07:54 Dose: Infused Cefazolin Sodium/Dextrose (Ancef 2 Gm Premix Inj) 2 gm in 50 mls @ 100 mls/hr IV.SIG Q8H [facility] Last Infusion: 02/13/18 07:54 Dose: Infused Insulin Aspart (Novolog Insulin Correctional Sugar Inj) 0 unit SQ Q6HR [facility]; Protocol Last Admin: 02/13/18 05:24 Dose: 1 unit Lactulose (Lactulose Liq) 30 ml PO BID [facility] Lansoprazole (Prevacid Solutab) 30 mg NG/OG DAILY [facility] Last Admin: 02/12/18 09:09 Dose: 30 mg Midazolam HCl (Versed Inj) 2 mg IV.PUSH Q4H PRN PRN Reason: AGITATION AND/OR HALLUCINATION Last Admin: 02/11/18 22:42 Dose: 2 mg Ondansetron HCl (Zofran Inj) 4 mg IV.PUSH Q6H PRN PRN Reason: NAUSEA OR VOMITING Polyethylene Glycol (Miralax) 17 gm PO DAILY [facility] Senna/Docusate Sodium (Viridiana-Colace) 1 tab PO BID [facility] Sennosides (Senokot) 17.2 mg PO Q12H PRN PRN Reason: Moderate Constipation Sodium Chloride (Ns Flush) 2 ml IV.FLUSH BID [facility] Last Admin: 02/12/18 21:21 Dose: 2 ml Sodium Chloride (Ns Flush) 2 ml IV.FLUSH PRN PRN PRN Reason: FLUSH AFTER USING IV ACCESS Sterile Water (Free Water) 100 ml G-TUBE Q6HR [facility] Last Admin: 02/13/18 05:19 Dose: 100 ml Terbutaline Sulfate (Brethine Inj) 1 mg SQ UNSCH PRN PRN Reason: For Extravasation Allergies Allergy/AdvReac Type Severity Reaction Status Date / Time *MDRO Multi-Drug Resistant Allergy Unknown Uncoded 09/04/13 13:15 Organism Home Medications Medication Instructions Recorded Confirmed Type Unable to Obtain Home Meds 02/10/18 02/10/18 History Advance Directives Documented care wishes: No written advanced directives were ever completed. Ethical and Legal Issues: Per [place] statutes, in the absence of written advanced directives healthcare proxy decision making falls to the patient's mother and father. Physical Exam Vital Signs: Vital Signs - 24 hr 02/12/18 09:30 02/12/18 09:40 02/12/18 09:50 Temperature Pulse Rate 91 H 91 H 90 Respiratory Rate 15 15 15 Blood Pressure 100/52 L 99/51 L 99/50 L Pulse Oximetry 98 98 98 02/12/18 10:00 02/12/18 10:10 02/12/18 10:20 Temperature Pulse Rate 90 90 90 Respiratory Rate 15 15 15 Blood Pressure 99/55 L 98/53 L 99/53 L Pulse Oximetry 97 98 97 02/12/18 10:30 02/12/18 10:40 02/12/18 10:50 Temperature Pulse Rate 90 90 90 Respiratory Rate 15 15 15 Blood Pressure 99/52 L 97/53 L 98/52 L Pulse Oximetry 97 98 98 02/12/18 11:00 02/12/18 11:10 02/12/18 11:16 Temperature Pulse Rate 90 82 91 H Respiratory Rate 15 15 15 Blood Pressure 97/50 L 82/41 L 97/54 L Pulse Oximetry 99 100 99 02/12/18 11:20 02/12/18 11:30 02/12/18 11:35 Temperature Pulse Rate 91 H 90 90 Respiratory Rate 15 15 15 Blood Pressure 96/52 L 93/53 L Pulse Oximetry 97 98 98 02/12/18 11:40 02/12/18 11:50 02/12/18 12:00 Temperature 98.4 F Pulse Rate 90 91 H 91 H Respiratory Rate 15 15 16 Blood Pressure 94/53 L 95/54 L 93/48 L Pulse Oximetry 99 98 97 02/12/18 12:10 02/12/18 12:20 02/12/18 13:00 Temperature Pulse Rate 91 H 91 H 90 Respiratory Rate 15 15 15 Blood Pressure 93/48 L 92/48 L 93/53 L Pulse Oximetry 100 100 100 02/12/18 14:00 02/12/18 15:00 02/12/18 15:28 Temperature Pulse Rate 88 89 91 H Respiratory Rate 15 15 15 Blood Pressure 93/47 L 92/49 L Pulse Oximetry 99 99 100 02/12/18 16:00 02/12/18 17:00 02/12/18 18:00 Temperature 98.3 F Pulse Rate 93 H 90 88 Respiratory Rate 15 15 17 Blood Pressure 98/51 L 89/46 L 102/53 L Pulse Oximetry 99 99 95 02/12/18 20:00 02/12/18 20:15 02/12/18 20:19 Temperature 96.9 F L Pulse Rate 90 89 Respiratory Rate 15 15 Blood Pressure 63/33 L 82/44 L Pulse Oximetry 99 100 02/12/18 22:00 02/12/18 23:45 02/13/18 00:00 Temperature 97.0 F L Pulse Rate 87 87 88 Respiratory Rate 15 15 Blood Pressure 86/47 L Pulse Oximetry 100 100 02/13/18 03:06 02/13/18 03:40 02/13/18 04:00 Temperature 98.0 F Pulse Rate 89 92 H Respiratory Rate 15 15 15 Blood Pressure 83/45 L Pulse Oximetry 100 99 02/13/18 08:35 Temperature Pulse Rate 98 H Respiratory Rate 15 Blood Pressure Pulse Oximetry 94 L I&O: Intake & Output 02/11/18 02/12/18 02/13/18 02/14/18 06:59 06:59 06:59 06:59 Intake Total 8450 / 8450 6200 / 6200 4307 / 4307 200 / 200 Output Total 800 / 800 2400 / 2400 1600 / 1600 Balance 7650 / 7650 3800 / 3800 2707 / 2707 200 / 200 Weight 80.5 kg 85.5 kg 85.8 kg Physical Exam: CONSTITUTIONAL/GENERAL: This is an adequately nourished patient who is intubated and sedated on mechanical ventilation TUBES/LINES/DRAINS: CVL, ETT, OGT, PIV, Wasserman catheter, SCDs SKIN: No jaundice, rashes, or lesions. No wounds seen anteriorly. Skin temperature appropriate. Not diaphoretic. HEAD: Atraumatic. Normocephalic. EYES: Pupils equal and round. No scleral icterus. No injection or drainage. Fundi not examined. ENT: Nose without bleeding or purulent drainage. Oral mucosa pink NECK: Trachea midline. Supple, nontender. No palpable thyroid enlargement or nodularity. CARDIOVASCULAR: Regular rate and rhythm. No JVD. RESPIRATORY/CHEST: Intubated on vent. Clear to auscultation. Breath sounds equal bilaterally. No wheezes, rales, or rhonchi. GASTROINTESTINAL: Abdomen soft, non-tender, nondistended. No hepato-splenomegaly , or palpable masses. GENITOURINARY: Without palpable bladder distension. Wasserman catheter in place. MUSCULOSKELETAL: Extremities without clubbing, cyanosis, or edema. No joint tenderness or effusion noted. No calf tenderness. Significant mottling in right foot LYMPHATICS: No palpable cervical or supraclavicular adenopathy. NEUROLOGICAL: Unresponsive. No gag or cough. Minimal corneal reflex. Does not withdraw to pain. PSYCHIATRIC: Unable to assess given patient's level of responsiveness Diagnostic Tests Laboratory: Laboratory Results - last 72 hr 02/10/18 02/10/18 02/10/18 09:31 09:31 09:31 WBC 26.6 H RBC 3.54 L Hgb 9.7 L Hct 30.4 L MCV 85.8 MCH 27.5 MCHC 32.0 RDW 15.6 Plt Count 212 MPV 7.7 Prelim Diff (Auto) Slide review pending Neut % (Auto) 92.7 H Lymph % (Auto) 1.1 L [place] % (Auto) 5.8 Eos % (Auto) 0.0 Baso % (Auto) 0.4 Neut # (Auto) 24.7 H Lymph # (Auto) 0.3 L [place] # (Auto) 1.5 H Eos # (Auto) 0.0 Baso # (Auto) 0.1 WBC Differential Manual diff final Seg Neuts % (Manual) 80 H Band Neuts % (Manual) 19 H Lymphocytes % (Manual) Monocytes % (Manual) 1 Eosinophils % (Manual) Metamyelocytes % (Man) Myelocytes % (Man) Abs Neuts (Manual) 26.3 H Differential Comment . Toxic Granulation 2+ H Toxic Vacuolation Present H Platelet Estimate Normal Platelet Morphology Normal PT INR APTT Fibrinogen Puncture Site Patient Temperature O2 Saturation ABG pH ABG pCO2 ABG pO2 ABG HCO3 ABG O2 Content ABG Base Excess ABG Methemoglobin [place] Test Hemoglobin Carboxyhemoglobin O2 Delivery Device Vent Setting Inspired O2 Critical Value Sodium 125 L Potassium 3.2 L Chloride 93 L Carbon Dioxide 20.0 L Anion Gap 12 BUN 21 H Creatinine 1.35 H Estimated GFR 45 L POC Glucose Random Glucose 241 H Lactic Acid 4.0 H Calcium 8.0 L Calcium Adj for Albumin Phosphorus Magnesium Total Bilirubin 0.6 AST 346 H ALT 173 H Alkaline Phosphatase 197 H Ammonia Total Creatine Kinase CK-MB (CK-2) CK-MB (CK-2) % Troponin I Total Protein 7.5 Albumin 2.0 L Lipase TSH Beta HCG, Qual Nasal Screen MRSA (PCR) Vancomycin Trough Urine Opiates Screen Ur Barbiturates Screen Ur Amphetamines Screen U Benzodiazepines Scrn Urine Cocaine Screen U Cannabinoids Screen Hepatitis A IgM Ab Hep Bs Antigen Hep B Core IgM Ab Hep C IgG Ab Legionella Source L. pneumophila DFA 02/10/18 02/10/18 02/10/18 09:31 09:50 10:50 WBC RBC Hgb Hct MCV MCH MCHC RDW Plt Count MPV Prelim Diff (Auto) Neut % (Auto) Lymph % (Auto) [place] % (Auto) Eos % (Auto) Baso % (Auto) Neut # (Auto) Lymph # (Auto) [place] # (Auto) Eos # (Auto) Baso # (Auto) WBC Differential Seg Neuts % (Manual) Band Neuts % (Manual) Lymphocytes % (Manual) Monocytes % (Manual) Eosinophils % (Manual) Metamyelocytes % (Man) Myelocytes % (Man) Abs Neuts (Manual) Differential Comment Toxic Granulation Toxic Vacuolation Platelet Estimate Platelet Morphology PT 14.8 H INR 1.5 APTT 33.1 H Fibrinogen Puncture Site Right brachial Patient Temperature 98.6 O2 Saturation 91 ABG pH 7.53 H* ABG pCO2 24 L* ABG pO2 62 ABG HCO3 20 L ABG O2 Content 11.4 L ABG Base Excess -3.0 L ABG Methemoglobin 0.6 [place] Test Present Hemoglobin 8.8 L Carboxyhemoglobin 1.4 O2 Delivery Device Vent Setting Inspired O2 21 Critical Value Yes Sodium Potassium Chloride Carbon Dioxide Anion Gap BUN Creatinine Estimated GFR POC Glucose Random Glucose Lactic Acid Calcium Calcium Adj for Albumin Phosphorus Magnesium Total Bilirubin AST ALT Alkaline Phosphatase Ammonia Total Creatine Kinase CK-MB (CK-2) CK-MB (CK-2) % Troponin I 7.29 H* Total Protein Albumin Lipase TSH Beta HCG, Qual Nasal Screen MRSA (PCR) Vancomycin Trough Urine Opiates Screen Ur Barbiturates Screen Ur Amphetamines Screen U Benzodiazepines Scrn Urine Cocaine Screen U Cannabinoids Screen Hepatitis A IgM Ab Hep Bs Antigen Hep B Core IgM Ab Hep C IgG Ab Legionella Source L. pneumophila DFA 02/10/18 02/10/18 02/10/18 11:21 11:21 11:21 WBC RBC Hgb Hct MCV MCH MCHC RDW Plt Count MPV Prelim Diff (Auto) Neut % (Auto) Lymph % (Auto) [place] % (Auto) Eos % (Auto) Baso % (Auto) Neut # (Auto) Lymph # (Auto) [place] # (Auto) Eos # (Auto) Baso # (Auto) WBC Differential Seg Neuts % (Manual) Band Neuts % (Manual) Lymphocytes % (Manual) Monocytes % (Manual) Eosinophils % (Manual) Metamyelocytes % (Man) Myelocytes % (Man) Abs Neuts (Manual) Differential Comment Toxic Granulation Toxic Vacuolation Platelet Estimate Platelet Morphology PT INR APTT Fibrinogen Puncture Site Patient Temperature O2 Saturation ABG pH ABG pCO2 ABG pO2 ABG HCO3 ABG O2 Content ABG Base Excess ABG Methemoglobin [place] Test Hemoglobin Carboxyhemoglobin O2 Delivery Device Vent Setting Inspired O2 Critical Value Sodium Potassium Chloride Carbon Dioxide Anion Gap BUN Creatinine Estimated GFR POC Glucose Random Glucose Lactic Acid Calcium Calcium Adj for Albumin Phosphorus Magnesium Total Bilirubin AST ALT Alkaline Phosphatase Ammonia Less than 10 L Total Creatine Kinase 369 H CK-MB (CK-2) 9.5 H CK-MB (CK-2) % 2.6 Troponin I Total Protein Albumin Lipase TSH Beta HCG, Qual Nasal Screen MRSA (PCR) Vancomycin Trough Urine Opiates Screen Ur Barbiturates Screen Ur Amphetamines Screen U Benzodiazepines Scrn Urine Cocaine Screen U Cannabinoids Screen Hepatitis A IgM Ab Nonreactive Hep Bs Antigen Nonreactive Hep B Core IgM Ab Nonreactive Hep C IgG Ab Reactive H Legionella Source L. pneumophila DFA 02/10/18 02/10/18 02/10/18 12:40 13:30 13:30 WBC RBC Hgb Hct MCV MCH MCHC RDW Plt Count MPV Prelim Diff (Auto) Neut % (Auto) Lymph % (Auto) [place] % (Auto) Eos % (Auto) Baso % (Auto) Neut # (Auto) Lymph # (Auto) [place] # (Auto) Eos # (Auto) Baso # (Auto) WBC Differential Seg Neuts % (Manual) Band Neuts % (Manual) Lymphocytes % (Manual) Monocytes % (Manual) Eosinophils % (Manual) Metamyelocytes % (Man) Myelocytes % (Man) Abs Neuts (Manual) Differential Comment Toxic Granulation Toxic Vacuolation Platelet Estimate Platelet Morphology PT INR APTT Fibrinogen Puncture Site Patient Temperature O2 Saturation ABG pH ABG pCO2 ABG pO2 ABG HCO3 ABG O2 Content ABG Base Excess ABG Methemoglobin [place] Test Hemoglobin Carboxyhemoglobin O2 Delivery Device Vent Setting Inspired O2 Critical Value Sodium Potassium Chloride Carbon Dioxide Anion Gap BUN Creatinine Estimated GFR POC Glucose Random Glucose Lactic Acid Calcium Calcium Adj for Albumin Phosphorus Magnesium Total Bilirubin AST ALT Alkaline Phosphatase Ammonia Total Creatine Kinase CK-MB (CK-2) CK-MB (CK-2) % Troponin I Total Protein Albumin Lipase TSH Beta HCG, Qual Nasal Screen MRSA (PCR) Not detected Vancomycin Trough Urine Opiates Screen Neg Ur Barbiturates Screen Neg Ur Amphetamines Screen Neg U Benzodiazepines Scrn Neg Urine Cocaine Screen Neg U Cannabinoids Screen Neg Hepatitis A IgM Ab Hep Bs Antigen Hep B Core IgM Ab Hep C IgG Ab Legionella Source Cancelled L. pneumophila DFA Cancelled 02/10/18 02/10/18 02/10/18 13:46 14:06 17:09 WBC RBC Hgb Hct MCV MCH MCHC RDW Plt Count MPV Prelim Diff (Auto) Neut % (Auto) Lymph % (Auto) [place] % (Auto) Eos % (Auto) Baso % (Auto) Neut # (Auto) Lymph # (Auto) [place] # (Auto) Eos # (Auto) Baso # (Auto) WBC Differential Seg Neuts % (Manual) Band Neuts % (Manual) Lymphocytes % (Manual) Monocytes % (Manual) Eosinophils % (Manual) Metamyelocytes % (Man) Myelocytes % (Man) Abs Neuts (Manual) Differential Comment Toxic Granulation Toxic Vacuolation Platelet Estimate Platelet Morphology PT INR APTT Fibrinogen Puncture Site Left radial Patient Temperature 98.6 O2 Saturation 93 ABG pH 7.27 L* ABG pCO2 44 H ABG pO2 93 ABG HCO3 20 L ABG O2 Content 13.9 ABG Base Excess -6.0 L ABG Methemoglobin 1.7 [place] Test Present Hemoglobin 10.5 L Carboxyhemoglobin 0.3 O2 Delivery Device Ventilator Vent Setting Prvc/ac Inspired O2 50 Critical Value Yes Sodium Potassium Chloride Carbon Dioxide Anion Gap BUN Creatinine Estimated GFR POC Glucose 214 H Random Glucose Lactic Acid 1.1 Calcium Calcium Adj for Albumin Phosphorus Magnesium Total Bilirubin AST ALT Alkaline Phosphatase Ammonia Total Creatine Kinase CK-MB (CK-2) CK-MB (CK-2) % Troponin I Total Protein Albumin Lipase TSH Beta HCG, Qual Nasal Screen MRSA (PCR) Vancomycin Trough Urine Opiates Screen Ur Barbiturates Screen Ur Amphetamines Screen U Benzodiazepines Scrn Urine Cocaine Screen U Cannabinoids Screen Hepatitis A IgM Ab Hep Bs Antigen Hep B Core IgM Ab Hep C IgG Ab Legionella Source L. pneumophila DFA 02/10/18 02/10/18 02/11/18 20:56 21:51 03:35 WBC RBC Hgb Hct MCV MCH MCHC RDW Plt Count MPV Prelim Diff (Auto) Neut % (Auto) Lymph % (Auto) [place] % (Auto) Eos % (Auto) Baso % (Auto) Neut # (Auto) Lymph # (Auto) [place] # (Auto) Eos # (Auto) Baso # (Auto) WBC Differential Seg Neuts % (Manual) Band Neuts % (Manual) Lymphocytes % (Manual) Monocytes % (Manual) Eosinophils % (Manual) Metamyelocytes % (Man) Myelocytes % (Man) Abs Neuts (Manual) Differential Comment Toxic Granulation Toxic Vacuolation Platelet Estimate Platelet Morphology PT INR APTT Fibrinogen Puncture Site Patient Temperature O2 Saturation ABG pH ABG pCO2 ABG pO2 ABG HCO3 ABG O2 Content ABG Base Excess ABG Methemoglobin [place] Test Hemoglobin Carboxyhemoglobin O2 Delivery Device Vent Setting Inspired O2 Critical Value Sodium Potassium Chloride Carbon Dioxide Anion Gap BUN Creatinine Estimated GFR POC Glucose 204 H 184 H Random Glucose Lactic Acid 2.6 H Calcium Calcium Adj for Albumin Phosphorus Magnesium Total Bilirubin AST ALT Alkaline Phosphatase Ammonia Total Creatine Kinase CK-MB (CK-2) CK-MB (CK-2) % Troponin I Total Protein Albumin Lipase TSH Beta HCG, Qual Nasal Screen MRSA (PCR) Vancomycin Trough Urine Opiates Screen Ur Barbiturates Screen Ur Amphetamines Screen U Benzodiazepines Scrn Urine Cocaine Screen U Cannabinoids Screen Hepatitis A IgM Ab Hep Bs Antigen Hep B Core IgM Ab Hep C IgG Ab Legionella Source L. pneumophila DFA 02/11/18 02/11/18 02/11/18 03:40 03:40 03:40 WBC 20.1 H RBC 2.83 L Hgb 8.0 L Hct 23.9 L MCV 84.6 MCH 28.4 MCHC 33.5 RDW 15.5 Plt Count 142 L D MPV 7.8 Prelim Diff (Auto) Neut % (Auto) 86.5 H Lymph % (Auto) 5.0 L [place] % (Auto) 7.8 Eos % (Auto) 0.4 Baso % (Auto) 0.3 Neut # (Auto) 17.4 H Lymph # (Auto) 1.0 [place] # (Auto) 1.6 H Eos # (Auto) 0.1 Baso # (Auto) 0.1 WBC Differential . Seg Neuts % (Manual) Band Neuts % (Manual) Lymphocytes % (Manual) Monocytes % (Manual) Eosinophils % (Manual) Metamyelocytes % (Man) Myelocytes % (Man) Abs Neuts (Manual) Differential Comment Auto diff final Toxic Granulation Toxic Vacuolation Platelet Estimate Platelet Morphology PT 15.4 H INR 1.5 APTT Fibrinogen Puncture Site Patient Temperature O2 Saturation ABG pH ABG pCO2 ABG pO2 ABG HCO3 ABG O2 Content ABG Base Excess ABG Methemoglobin [place] Test Hemoglobin Carboxyhemoglobin O2 Delivery Device Vent Setting Inspired O2 Critical Value Sodium 133 L Potassium 3.8 Chloride 102 D Carbon Dioxide 21.9 Anion Gap 9 BUN 25 H Creatinine 1.43 H Estimated GFR 42 L POC Glucose Random Glucose 166 H Lactic Acid Calcium 7.0 L* D Calcium Adj for Albumin 8.8 Phosphorus 4.5 Magnesium 2.4 Total Bilirubin 1.0 AST 597 H ALT 272 H Alkaline Phosphatase 126 H Ammonia Total Creatine Kinase CK-MB (CK-2) CK-MB (CK-2) % Troponin I Total Protein 6.0 L D Albumin 1.8 L Lipase TSH Beta HCG, Qual Nasal Screen MRSA (PCR) Vancomycin Trough Urine Opiates Screen Ur Barbiturates Screen Ur Amphetamines Screen U Benzodiazepines Scrn Urine Cocaine Screen U Cannabinoids Screen Hepatitis A IgM Ab Hep Bs Antigen Hep B Core IgM Ab Hep C IgG Ab Legionella Source L. pneumophila DFA 02/11/18 02/11/18 02/11/18 03:40 08:44 12:05 WBC RBC Hgb Hct MCV MCH MCHC RDW Plt Count MPV Prelim Diff (Auto) Neut % (Auto) Lymph % (Auto) [place] % (Auto) Eos % (Auto) Baso % (Auto) Neut # (Auto) Lymph # (Auto) [place] # (Auto) Eos # (Auto) Baso # (Auto) WBC Differential Seg Neuts % (Manual) Band Neuts % (Manual) Lymphocytes % (Manual) Monocytes % (Manual) Eosinophils % (Manual) Metamyelocytes % (Man) Myelocytes % (Man) Abs Neuts (Manual) Differential Comment Toxic Granulation Toxic Vacuolation Platelet Estimate Platelet Morphology PT INR APTT Fibrinogen Puncture Site Patient Temperature O2 Saturation ABG pH ABG pCO2 ABG pO2 ABG HCO3 ABG O2 Content ABG Base Excess ABG Methemoglobin [place] Test Hemoglobin Carboxyhemoglobin O2 Delivery Device Vent Setting Inspired O2 Critical Value Sodium Potassium Chloride Carbon Dioxide Anion Gap BUN Creatinine Estimated GFR POC Glucose 165 H 164 H Random Glucose Lactic Acid 2.4 H Calcium Calcium Adj for Albumin Phosphorus Magnesium Total Bilirubin AST ALT Alkaline Phosphatase Ammonia Total Creatine Kinase CK-MB (CK-2) CK-MB (CK-2) % Troponin I Total Protein Albumin Lipase TSH Beta HCG, Qual Nasal Screen MRSA (PCR) Vancomycin Trough Urine Opiates Screen Ur Barbiturates Screen Ur Amphetamines Screen U Benzodiazepines Scrn Urine Cocaine Screen U Cannabinoids Screen Hepatitis A IgM Ab Hep Bs Antigen Hep B Core IgM Ab Hep C IgG Ab Legionella Source L. pneumophila DFA 02/11/18 02/11/18 02/12/18 18:43 21:00 04:15 WBC RBC Hgb Hct MCV MCH MCHC RDW Plt Count MPV Prelim Diff (Auto) Neut % (Auto) Lymph % (Auto) [place] % (Auto) Eos % (Auto) Baso % (Auto) Neut # (Auto) Lymph # (Auto) [place] # (Auto) Eos # (Auto) Baso # (Auto) WBC Differential Seg Neuts % (Manual) Band Neuts % (Manual) Lymphocytes % (Manual) Monocytes % (Manual) Eosinophils % (Manual) Metamyelocytes % (Man) Myelocytes % (Man) Abs Neuts (Manual) Differential Comment Toxic Granulation Toxic Vacuolation Platelet Estimate Platelet Morphology PT INR APTT Fibrinogen Puncture Site Patient Temperature O2 Saturation ABG pH ABG pCO2 ABG pO2 ABG HCO3 ABG O2 Content ABG Base Excess ABG Methemoglobin [place] Test Hemoglobin Carboxyhemoglobin O2 Delivery Device Vent Setting Inspired O2 Critical Value Sodium Potassium Chloride Carbon Dioxide Anion Gap BUN Creatinine Estimated GFR POC Glucose 158 H 168 H 219 H Random Glucose Lactic Acid Calcium Calcium Adj for Albumin Phosphorus Magnesium Total Bilirubin AST ALT Alkaline Phosphatase Ammonia Total Creatine Kinase CK-MB (CK-2) CK-MB (CK-2) % Troponin I Total Protein Albumin Lipase TSH Beta HCG, Qual Nasal Screen MRSA (PCR) Vancomycin Trough Urine Opiates Screen Ur Barbiturates Screen Ur Amphetamines Screen U Benzodiazepines Scrn Urine Cocaine Screen U Cannabinoids Screen Hepatitis A IgM Ab Hep Bs Antigen Hep B Core IgM Ab Hep C IgG Ab Legionella Source L. pneumophila DFA 02/12/18 02/12/18 02/12/18 04:16 04:25 08:11 WBC 25.5 H RBC 2.85 L Hgb 7.9 L Hct 24.3 L MCV 85.0 MCH 27.5 MCHC 32.4 RDW 16.1 Plt Count 170 MPV 8.7 Prelim Diff (Auto) Neut % (Auto) Lymph % (Auto) [place] % (Auto) Eos % (Auto) Baso % (Auto) Neut # (Auto) Lymph # (Auto) [place] # (Auto) Eos # (Auto) Baso # (Auto) WBC Differential Seg Neuts % (Manual) Band Neuts % (Manual) Lymphocytes % (Manual) Monocytes % (Manual) Eosinophils % (Manual) Metamyelocytes % (Man) Myelocytes % (Man) Abs Neuts (Manual) Differential Comment Toxic Granulation Toxic Vacuolation Platelet Estimate Platelet Morphology PT INR APTT Fibrinogen Puncture Site Patient Temperature O2 Saturation ABG pH ABG pCO2 ABG pO2 ABG HCO3 ABG O2 Content ABG Base Excess ABG Methemoglobin [place] Test Hemoglobin Carboxyhemoglobin O2 Delivery Device Vent Setting Inspired O2 Critical Value Sodium 139 136 Potassium 4.2 4.5 Chloride 109 H 109 H Carbon Dioxide 19.1 L 19.2 L Anion Gap 11 8 BUN 25 H 24 H Creatinine 1.38 H 1.49 H Estimated GFR 44 L 40 L POC Glucose Random Glucose 207 H 283 H Lactic Acid Calcium 6.8 L* 7.2 L* Calcium Adj for Albumin 8.9 9.1 Phosphorus Magnesium 2.5 Total Bilirubin 0.7 AST 983 H ALT 723 H Alkaline Phosphatase 150 H Ammonia Total Creatine Kinase 124 CK-MB (CK-2) CK-MB (CK-2) % Troponin I 1.59 H* D Total Protein 5.7 L Albumin 1.4 L 1.6 L Lipase 137 TSH Beta HCG, Qual Less than 1.0 Nasal Screen MRSA (PCR) Vancomycin Trough Urine Opiates Screen Ur Barbiturates Screen Ur Amphetamines Screen U Benzodiazepines Scrn Urine Cocaine Screen U Cannabinoids Screen Hepatitis A IgM Ab Hep Bs Antigen Hep B Core IgM Ab Hep C IgG Ab Legionella Source L. pneumophila DFA 02/12/18 02/12/18 02/12/18 08:17 09:00 09:00 WBC RBC Hgb Hct MCV MCH MCHC RDW Plt Count MPV Prelim Diff (Auto) Neut % (Auto) Lymph % (Auto) [place] % (Auto) Eos % (Auto) Baso % (Auto) Neut # (Auto) Lymph # (Auto) [place] # (Auto) Eos # (Auto) Baso # (Auto) WBC Differential Seg Neuts % (Manual) Band Neuts % (Manual) Lymphocytes % (Manual) Monocytes % (Manual) Eosinophils % (Manual) Metamyelocytes % (Man) Myelocytes % (Man) Abs Neuts (Manual) Differential Comment Toxic Granulation Toxic Vacuolation Platelet Estimate Platelet Morphology PT INR APTT Fibrinogen Puncture Site Patient Temperature O2 Saturation ABG pH ABG pCO2 ABG pO2 ABG HCO3 ABG O2 Content ABG Base Excess ABG Methemoglobin [place] Test Hemoglobin Carboxyhemoglobin O2 Delivery Device Vent Setting Inspired O2 Critical Value Sodium Potassium Chloride Carbon Dioxide Anion Gap BUN Creatinine Estimated GFR POC Glucose 214 H Random Glucose Lactic Acid 1.6 Calcium Calcium Adj for Albumin Phosphorus Magnesium Total Bilirubin AST ALT Alkaline Phosphatase Ammonia Total Creatine Kinase CK-MB (CK-2) CK-MB (CK-2) % Troponin I Total Protein Albumin Lipase TSH Beta HCG, Qual Nasal Screen MRSA (PCR) Vancomycin Trough Urine Opiates Screen Ur Barbiturates Screen Ur Amphetamines Screen U Benzodiazepines Scrn Urine Cocaine Screen U Cannabinoids Screen Hepatitis A IgM Ab Nonreactive Hep Bs Antigen Nonreactive Hep B Core IgM Ab Nonreactive Hep C IgG Ab Reactive H Legionella Source L. pneumophila DFA 02/12/18 02/12/18 02/12/18 12:23 15:41 17:23 WBC RBC Hgb Hct MCV MCH MCHC RDW Plt Count MPV Prelim Diff (Auto) Neut % (Auto) Lymph % (Auto) [place] % (Auto) Eos % (Auto) Baso % (Auto) Neut # (Auto) Lymph # (Auto) [place] # (Auto) Eos # (Auto) Baso # (Auto) WBC Differential Seg Neuts % (Manual) Band Neuts % (Manual) Lymphocytes % (Manual) Monocytes % (Manual) Eosinophils % (Manual) Metamyelocytes % (Man) Myelocytes % (Man) Abs Neuts (Manual) Differential Comment Toxic Granulation Toxic Vacuolation Platelet Estimate Platelet Morphology PT INR APTT Fibrinogen Puncture Site Patient Temperature O2 Saturation ABG pH ABG pCO2 ABG pO2 ABG HCO3 ABG O2 Content ABG Base Excess ABG Methemoglobin [place] Test Hemoglobin Carboxyhemoglobin O2 Delivery Device Vent Setting Inspired O2 Critical Value Sodium Potassium Chloride Carbon Dioxide Anion Gap BUN Creatinine Estimated GFR POC Glucose 177 H 132 H Random Glucose Lactic Acid Calcium Calcium Adj for Albumin Phosphorus Magnesium Total Bilirubin AST ALT Alkaline Phosphatase Ammonia Total Creatine Kinase CK-MB (CK-2) CK-MB (CK-2) % Troponin I Total Protein Albumin Lipase TSH Beta HCG, Qual Nasal Screen MRSA (PCR) Vancomycin Trough 14.0 H Urine Opiates Screen Ur Barbiturates Screen Ur Amphetamines Screen U Benzodiazepines Scrn Urine Cocaine Screen U Cannabinoids Screen Hepatitis A IgM Ab Hep Bs Antigen Hep B Core IgM Ab Hep C IgG Ab Legionella Source L. pneumophila DFA 02/13/18 02/13/18 02/13/18 00:20 05:10 05:10 WBC 25.2 H RBC 2.72 L Hgb 7.5 L Hct 23.5 L MCV 86.4 MCH 27.8 MCHC 32.1 RDW 16.1 Plt Count 226 D MPV 8.3 Prelim Diff (Auto) Slide review pending Neut % (Auto) 84.8 H Lymph % (Auto) 8.2 L [place] % (Auto) 4.7 Eos % (Auto) 1.8 Baso % (Auto) 0.5 Neut # (Auto) 21.4 H Lymph # (Auto) 2.1 [place] # (Auto) 1.2 H Eos # (Auto) 0.5 H Baso # (Auto) 0.1 WBC Differential Manual diff final Seg Neuts % (Manual) 60 Band Neuts % (Manual) 23 H Lymphocytes % (Manual) 5 L Monocytes % (Manual) 3 Eosinophils % (Manual) 5 H Metamyelocytes % (Man) 2 H Myelocytes % (Man) 2 H Abs Neuts (Manual) 21.9 H Differential Comment . Toxic Granulation 1+ H Toxic Vacuolation Platelet Estimate Normal Platelet Morphology Normal PT INR APTT Fibrinogen Puncture Site Patient Temperature O2 Saturation ABG pH ABG pCO2 ABG pO2 ABG HCO3 ABG O2 Content ABG Base Excess ABG Methemoglobin [place] Test Hemoglobin Carboxyhemoglobin O2 Delivery Device Vent Setting Inspired O2 Critical Value Sodium 136 Potassium 3.7 D Chloride 106 Carbon Dioxide 20.2 L Anion Gap 10 BUN 31 H Creatinine 2.15 H Estimated GFR 26 L POC Glucose 178 H Random Glucose 162 H D Lactic Acid Calcium 7.5 L Calcium Adj for Albumin Phosphorus 6.0 H Magnesium 2.4 Total Bilirubin 1.1 H AST 239 H ALT 223 H Alkaline Phosphatase 190 H Ammonia Total Creatine Kinase CK-MB (CK-2) CK-MB (CK-2) % Troponin I Total Protein 5.8 L Albumin 1.4 L Lipase TSH 1.570 Beta HCG, Qual Nasal Screen MRSA (PCR) Vancomycin Trough Urine Opiates Screen Ur Barbiturates Screen Ur Amphetamines Screen U Benzodiazepines Scrn Urine Cocaine Screen U Cannabinoids Screen Hepatitis A IgM Ab Hep Bs Antigen Hep B Core IgM Ab Hep C IgG Ab Legionella Source L. pneumophila DFA 02/13/18 02/13/1818 05:10 05:10 05:23 WBC RBC Hgb Hct MCV MCH MCHC RDW Plt Count MPV Prelim Diff (Auto) Neut % (Auto) Lymph % (Auto) [place] % (Auto) Eos % (Auto) Baso % (Auto) Neut # (Auto) Lymph # (Auto) [place] # (Auto) Eos # (Auto) Baso # (Auto) WBC Differential Seg Neuts % (Manual) Band Neuts % (Manual) Lymphocytes % (Manual) Monocytes % (Manual) Eosinophils % (Manual) Metamyelocytes % (Man) Myelocytes % (Man) Abs Neuts (Manual) Differential Comment Toxic Granulation Toxic Vacuolation Platelet Estimate Platelet Morphology PT INR APTT 27.6 Fibrinogen 440 H Puncture Site Patient Temperature O2 Saturation ABG pH ABG pCO2 ABG pO2 ABG HCO3 ABG O2 Content ABG Base Excess ABG Methemoglobin [place] Test Hemoglobin Carboxyhemoglobin O2 Delivery Device Vent Setting Inspired O2 Critical Value Sodium Potassium Chloride Carbon Dioxide Anion Gap BUN Creatinine Estimated GFR POC Glucose 190 H Random Glucose Lactic Acid Calcium Calcium Adj for Albumin Phosphorus Magnesium Total Bilirubin AST ALT Alkaline Phosphatase Ammonia Less than 10 L Total Creatine Kinase CK-MB (CK-2) CK-MB (CK-2) % Troponin I Total Protein Albumin Lipase TSH Beta HCG, Qual Nasal Screen MRSA (PCR) Vancomycin Trough Urine Opiates Screen Ur Barbiturates Screen Ur Amphetamines Screen U Benzodiazepines Scrn Urine Cocaine Screen U Cannabinoids Screen Hepatitis A IgM Ab Hep Bs Antigen Hep B Core IgM Ab Hep C IgG Ab Legionella Source L. pneumophila DFA Result Diagrams: 02/13/18 05:10 02/13/18 05:10 Microbiology: Microbiology 02/10/18 13:30 Urine Culture - Final Catheterized Urine Staphylococcus aureus Escherichia coli 02/10/18 18:20 Gram Stain - Final Sputum - Oral Tracheal Aspirate Sputum Culture - Final Staphylococcus aureus 02/11/18 18:52 Aerobic Blood Culture - Preliminary Blood - Peripheral No growth in 1 day Anaerobic Blood Culture - Preliminary No growth in 1 day 02/11/18 14:29 Aerobic Blood Culture - Preliminary Blood - Peripheral No growth in 1 day Anaerobic Blood Culture - Final QNS - See aerobic report. 02/10/18 09:55 Aerobic Blood Culture - Final Blood - Peripheral Staphylococcus aureus Anaerobic Blood Culture - Final Staphylococcus aureus 02/10/18 09:50 Aerobic Blood Culture - Final Blood - Peripheral Staphylococcus aureus Anaerobic Blood Culture - Final Staphylococcus aureus 02/10/18 13:30 Streptococcus pneumoniae Antigen (M - Final Urine - Catheterized Urine Presumptive negative for streptococcus pneumoniae antigen, suggesting no current or recent infection. Infection due to Streptococcus pneumoniae cannot be ruled out since the antigen present in the sample may be below the detection limit of the test. 02/10/18 13:30 Legionella Antigen - Final Urine - Random Urine Presumptive negative for Legionella pneumophila serogroup 1 antigen in urine, suggesting no recent or recurrent infection. Infection due to Legionella cannot be ruled out since other serogroups and species may cause disease, antigen may not be present in urine in early infection, and the level of antigen present in the urine may be below the detection limit of the test. Imaging: Head MRI 02/11/18 12:20 CONCLUSION: 1. Bilateral large areas of restricted diffusion, right larger than left, as above. These represent areas of recent ischemia. There are no findings to indicate hemorrhagic transformation. 2. The mass effect from the right-sided edema results and 3 mm of right-to- left midline shift. 3. No abscess is identified. CT CAD 02/11/18 16:24 CONCLUSION: Physiological brain perfusion parameters with RAPID analysis as above. The decision for consideration of therapy is multi factorial and multi disciplinary relying on subjective and objective clinical data. This data is not construed or intended to be the sole determinant of treatment eligibility. Head CTA 02/11/18 16:26 CONCLUSION: 1. 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 2. Occlusion of the more distal M2 branch at the left middle cerebral artery supplying the left parietal lobe. . Neck CTA 02/11/18 16:26 CONCLUSION: 1. No abnormality is identified within the neck arterial vasculature. 2. There are small partially visualized bilateral pleural effusions with adjacent compressive atelectasis. Additionally, there are nodular areas of peripheral consolidation in both upper lobes. 3. Pericardial effusion and/or mediastinal edema. 4. Please note that the left IJ central line distal tip extends into the azygos vein. Chest X-Ray 02/13/18 06:00 CONCLUSION: Increased bilateral lower lung zone predominant pulmonary opacity that likely represents pulmonary edema along with new bilateral pleural effusions. Head CT 02/13/18 07:17 CONCLUSION: 1. Significant deterioration in the appearance of the brain as described above with large evolving infarct involving most of the right hemisphere and the left posterior sylvian region. 2. Brain STEM would appear to be involved now as well Procedures: 02/10/2018: Endotracheal intubation 02/10/2018: Left IJ central venous line placement Patient/Family Conference Present at Family Conference: Met patient's mother and father at bedside. Total visit with Patricia Garay ( Palliative BONDING AGENT). Dr. Quintana was present for a portion of the visit. Family Conference Location: Bedside Issues Discussed: * Palliative care role, purpose, approach * Additional medical, psychosocial, and spiritual history * Patients general health, functional status, and cognitive changes in the months leading up to the current hospitalization * Patient/family understanding of the current medical problems * Patient/family understanding of prognosis * Patients goals of care as best understood from advance directives and/or conversations and/or values * Current medical treatment options and benefits/burdens of those options * Likely scenarios comparing ongoing aggressive care with a transition to comfort measures only * Questions answered to the best of my ability * Palliative care contact information provided Assessment and Plan - Symptom Scale (1) Pain 0-10 Scale: Unable to quantify (2) Altered mental status 0-10 Scale: Unable to quantify Pertinent Non-Medical Issues: Psychosocial: Patient's parents are . She has 1 sister. Patient has 2 children (Michelle and John) who live with their father. Spiritual: Non congregational Legal: Per [place] statutes, in the absence of written advanced directives healthcare proxy decision making falls to the patient's mother and father Ethical issues impacting care: No known ethical issues impacting care at this time. Important Contacts: Lillie Brunson, mother: [phone] Leroy Brunson, father: [phone] Prognosis: Patient is a 32-year-old female admitted with symptoms of acute drug withdraw and sepsis who sustained large bilateral infarctions. Recent CT this morning showed large evolving infarct involving most of the right hemisphere in the left posterior sylvian region; it appears the brainstem is involved now as well. Prognosis is grim. Code Status: No Code DNR Plan: * NO CODE/DNR * Dual visit with Patricia Garay Palliative BONDING AGENT. * Per [place] statutes, in the absence of written advanced directives healthcare proxy decision making falls to the patient's mother and father ( Lillie and Leroy). * Palliative care information provided to the patient's mother * Discussed patient with RN (Aida) and Dr. Quintana * Palliative care met with the patient's father and mother at bedside to provide medical update, discuss poor prognosis. Dr. Quintana was present for a portion of our conversation. The patient's parents do not want to prolong the patient's suffering any longer. The process of compassionate withdrawal of artificial life support was discussed at length, and the patient's parents want to proceed as soon as possible. * Exhibit C was signed by Dr. Quintana and * Upon return room to have the parents sign Exhibit B, patient was found to be imminent with a heart rate in the 40s and a blood pressure in the 40s over 60s. Oxygen saturation was 72% on mechanical ventilation with FiO2 of 40%. Patient is at NO CODE/DNR. Director Decision Support Raz and Palliative care were at bedside with the patient's mother. Attempted to contact patient's father at . Patient passed peacefully with mother at bedside; mother notified patient 's father at a different phone number. Appreciation Thank you for the opportunity to participate in the care of Laura Brunson. Attestation Attestation: To help prompt me to consider important information that might be impacting today's encounter and assessment, information from prior notes written by myself or my colleagues may have been "brought forward" into today's note. My signature on this note, however, is an attestation that I personally performed the exam, history, and/or decision-making noted today, and, unless otherwise indicated, the interactions with patient, family, and staff as well as the review of records all occurred today. I also attest that the listed assessment and stated plan reflect my best clinical judgment today based on the combination of historical information, prior notes, and today's exam/ interactions. When time spent is documented, it refers only to time spent today by the signer, or if indicated, combined time spent today by collaborating physician/nurse practitioner.
--- NOTE | 2018-02-13 13:36 | P.DN ---
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 Physician Reason for Consultation: positive troponin Notified:: Office Spoke with:: yen Date Notified:: 02/10/18 Time Notified:: 11:25 Ordering Provider: AUGUSTINA 02/11/18 08:54 Consult to Infectious Diseases Routine Consulting Provider: Shasta Wadsworth Reason for Consultation: Infective endocarditis, AV Notified:: Service Spoke with:: Frederick Date Notified:: 02/11/18 Time Notified:: 08:59 [facility] 02/11/18 09:49 Consult to Cardiothoracic Surgery Routine Consulting Provider: Koki Mckeon Reason for Consultation: AV endocarditis, with Mod AI Spoke with:: added to list, left VM on cell phone Date Notified:: 02/11/18 Time Notified:: 09:55 Ordering Provider: VIOLA 02/11/18 16:17 Consult to Neurology Routine Consulting Provider: Matthew Colindres Reason for Consultation: Bilateral ischemic stroke, Infective endocarditis Notified:: Service Spoke with:: nikolay Date Notified:: 02/11/18 Time Notified:: 16:24 [facility] 02/11/18 16:27 Consult to Neurology Stat Consulting Provider: Matthew Colindres For STAT consult, spoke directly to:: Dr. Colindres Preferred Poultry Farmer Egg:: Matthew Colindres Reason for Consultation: Acute bilateral MCA stroke Spoke with:: no call Comments:: Duplicate request. Consult previously call to . Updated reason w/ call center Ordering Provider: SJRIKenan 02/12/18 07:19 Consult to Palliative Care Routine Consulting Provider: Lamar Hess Reason for Consultation: 32-year-old female patient with bilateral CVA/MCA occlusion not a candidate for stent retrieval or anticoagulation. IV drug use. Family support. Notified:: Service Spoke with:: Sarah Date Notified:: 02/12/18 Time Notified:: 07:26 Ordering Provider: MEAGAN Pronouncing clinician: Smith Nava - Admitting Diagnosis (1) Cerebrovascular accident, embolic (2) Staphylococcus aureus bacteremia with sepsis (3) Endocarditis (4) Drug abuse - Diagnosis at Time of (1) Endocarditis Diagnosis: Principal (2) Drug abuse Diagnosis: Secondary (3) Cerebrovascular accident, embolic Diagnosis: Principal (4) Staphylococcus aureus bacteremia with sepsis Diagnosis: Principal - Date and Time Date of admission: 02/10/18 10:36 Date of : 02/13/18 Time of : 12:15 - Summary Details: 32-year-old female that presented to [facility] emergency department with drug withdrawal symptoms. The patient reported to the ED physician Dr. Dwyer that she is a IV drug abuser and normally utilizes heroin but has been withdrawing. The patient was noted to be in rigors. Laboratory and imaging studies were performed the patient was noted to have a lactic acid of 4. Initial troponin was significantly elevated at 4. Cardiology was consulted and a stat transthoracic echo was performed which noted a vegetation on the aortic valve. Cardiology was consulted. In the ED the patient received prophylactic antibiotics vancomycin and Zosyn as well as 2 mg of Ativan. All information obtained from medical records upon my examination the patient was not responding to questions. In the ED the patient was noted to be diaphoretic , tachycardic, copious diarrhea. Critical care medicine was consulted 02/11: Patient was intubated yesterday for worsening respiratory failure and severe sepsis. Currently intubated sedated with propofol and Precedex remains tachypneic on the vent. Requiring Levophed at 11 mcg/min to maintain map above 65. Remains very critical. 2D echo shows mild mitral valve regurgitation. Mild thickening of the aortic valve leaflets. Moderate aortic valve regurgitation. Suspect aortic valve endocarditis. With aortic valve endocarditis and moderate aortic regurgitation prognosis remains guarded 02/12: Noted bilateral MCA CVAs with occlusion. Decision made not to adequately explored stent retrieval due to high risk of hemorrhagic conversion. Remains unresponsive on the ventilator. Will initiate tube feeding today. On weaning sedation patient becomes dyssynchronous with the ventilator 02/13: Repeat CT brain revealed extensive injury to the right side of the brain along with essentially the left side of the brain as well. Mother and father with withdrawal of care. Procedures: ROSANNA -Dr. Ham -Aortiic valve vegetation Left IJ CVL by Dr. Ruiz Brief History: This is a 32-year-old female that presented to [facility] emergency department with drug withdrawal symptoms. The patient reported to the ED physician Dr. Dwyer that she is a IV drug abuser and normally utilizes heroin but has been withdrawing. The patient was noted to be in rigors. Laboratory and imaging studies were performed the patient was noted to have a lactic acid of 4. Initial troponin was significantly elevated at 4. Cardiology was consulted nadd a stat transthoracic echo was performed which noted a vegetation on the aortic valve. Cardiology was consulted. In the ED the patient received prophylactic antibiotics vancomycin and Zosyn as well as 2 mg of Ativan. All information obtained from medical records upon my examination the patient was not responding to questions. In the ED the patient was noted to be diaphoretic , tachycardic, copious diarrhea. Critical care medicine was consulted Result Diagrams: 02/13/18 05:10 02/13/18 05:10 Significant Findings: Abnormal Lab Results 02/12/18 02/12/18 02/13/18 15:41 17:23 00:20 WBC RBC Hgb Hct MCV MCH MCHC RDW Plt Count MPV Prelim Diff (Auto) Neut % (Auto) Lymph % (Auto) [place] % (Auto) Eos % (Auto) Baso % (Auto) Neut # (Auto) Lymph # (Auto) [place] # (Auto) Eos # (Auto) Baso # (Auto) WBC Differential Seg Neuts % (Manual) Band Neuts % (Manual) Lymphocytes % (Manual) Monocytes % (Manual) Eosinophils % (Manual) Metamyelocytes % (Man) Myelocytes % (Man) Abs Neuts (Manual) Differential Comment Toxic Granulation Platelet Estimate Platelet Morphology APTT Fibrinogen Sodium Potassium Chloride Carbon Dioxide Anion Gap BUN Creatinine Estimated GFR POC Glucose 132 H 178 H Random Glucose Calcium Phosphorus Magnesium Total Bilirubin AST ALT Alkaline Phosphatase Ammonia Total Protein Albumin TSH Vancomycin Trough 14.0 H 02/13/18 02/13/18 02/13/18 05:10 05:10 05:10 WBC 25.2 H RBC 2.72 L Hgb 7.5 L Hct 23.5 L MCV 86.4 MCH 27.8 MCHC 32.1 RDW 16.1 Plt Count 226 D MPV 8.3 Prelim Diff (Auto) Slide review pending Neut % (Auto) 84.8 H Lymph % (Auto) 8.2 L [place] % (Auto) 4.7 Eos % (Auto) 1.8 Baso % (Auto) 0.5 Neut # (Auto) 21.4 H Lymph # (Auto) 2.1 [place] # (Auto) 1.2 H Eos # (Auto) 0.5 H Baso # (Auto) 0.1 WBC Differential Manual diff final Seg Neuts % (Manual) 60 Band Neuts % (Manual) 23 H Lymphocytes % (Manual) 5 L Monocytes % (Manual) 3 Eosinophils % (Manual) 5 H Metamyelocytes % (Man) 2 H Myelocytes % (Man) 2 H Abs Neuts (Manual) 21.9 H Differential Comment . Toxic Granulation 1+ H Platelet Estimate Normal Platelet Morphology Normal APTT 27.6 Fibrinogen 440 H Sodium 136 Potassium 3.7 D Chloride 106 Carbon Dioxide 20.2 L Anion Gap 10 BUN 31 H Creatinine 2.15 H Estimated GFR 26 L POC Glucose Random Glucose 162 H D Calcium 7.5 L Phosphorus 6.0 H Magnesium 2.4 Total Bilirubin 1.1 H AST 239 H ALT 223 H Alkaline Phosphatase 190 H Ammonia Total Protein 5.8 L Albumin 1.4 L TSH 1.570 Vancomycin Trough 02/13/18 02/13/18 05:10 05:23 WBC RBC Hgb Hct MCV MCH MCHC RDW Plt Count MPV Prelim Diff (Auto) Neut % (Auto) Lymph % (Auto) [place] % (Auto) Eos % (Auto) Baso % (Auto) Neut # (Auto) Lymph # (Auto) [place] # (Auto) Eos # (Auto) Baso # (Auto) WBC Differential Seg Neuts % (Manual) Band Neuts % (Manual) Lymphocytes % (Manual) Monocytes % (Manual) Eosinophils % (Manual) Metamyelocytes % (Man) Myelocytes % (Man) Abs Neuts (Manual) Differential Comment Toxic Granulation Platelet Estimate Platelet Morphology APTT Fibrinogen Sodium Potassium Chloride Carbon Dioxide Anion Gap BUN Creatinine Estimated GFR POC Glucose 190 H Random Glucose Calcium Phosphorus Magnesium Total Bilirubin AST ALT Alkaline Phosphatase Ammonia Less than 10 L Total Protein Albumin TSH Vancomycin Trough Imaging: Chest X-Ray 02/10/18 09:43 CONCLUSION: 1. Platelike airspace disease at the lung bases bilaterally, presumably atelectasis. Differential considerations include pneumonia and aspiration in the appropriate clinical setting. Chest X-Ray 02/10/18 13:34 CONCLUSION: 1. Endotracheal tube in appropriate position with tip measuring 4.8 cm from the radha. 2. Left IJ central line distal tip in the SVC without pneumothorax. 3. The nasogastric tube should be advanced the stomach. 4. Stable bibasilar opacity. Head CT 02/11/18 00:00 CONCLUSION: 1. There is bilateral cytotoxic edema, as above, consistent with areas of recent ischemia. 2. The mass effect from the right-sided edema results in 3 mm of [id number] midline shift. No acute blood products are identified. . Chest X-Ray 02/11/18 08:31 CONCLUSION: Persistent bibasilar airspace disease with significant consolidation in the left base. Additional support devices as described. No significant improvement compared to prior study. Head MRI 02/11/18 12:20 CONCLUSION: 1. Bilateral large areas of restricted diffusion, right larger than left, as above. These represent areas of recent ischemia. There are no findings to indicate hemorrhagic transformation. 2. The mass effect from the right-sided edema results and 3 mm of right-to- left midline shift. 3. No abscess is identified. CT CAD 02/11/18 16:24 CONCLUSION: Physiological brain perfusion parameters with RAPID analysis as above. The decision for consideration of therapy is multi factorial and multi disciplinary relying on subjective and objective clinical data. This data is not construed or intended to be the sole determinant of treatment eligibility. Head CTA 02/11/18 16:26 CONCLUSION: 1. 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 2. Occlusion of the more distal M2 branch at the left middle cerebral artery supplying the left parietal lobe. . Neck CTA 02/11/18 16:26 CONCLUSION: 1. No abnormality is identified within the neck arterial vasculature. 2. There are small partially visualized bilateral pleural effusions with adjacent compressive atelectasis. Additionally, there are nodular areas of peripheral consolidation in both upper lobes. 3. Pericardial effusion and/or mediastinal edema. 4. Please note that the left IJ central line distal tip extends into the azygos vein. Chest X-Ray 02/13/18 06:00 CONCLUSION: Increased bilateral lower lung zone predominant pulmonary opacity that likely represents pulmonary edema along with new bilateral pleural effusions. Head CT 02/13/18 07:17 CONCLUSION: 1. Significant deterioration in the appearance of the brain as described above with large evolving infarct involving most of the right hemisphere and the left posterior sylvian region. 2. Brain STEM would appear to be involved now as well Hospital Course: Neuro/Psych: IV drug abuse-heroin History of polysubstance abuse including methamphetamines and cocaine Acute opioid withdrawal Bilateral MCA CVA Sedated with propofol drip at 50 madhuri grams per kilogram per minute and as needed dexmedetomidine infusion Acetaminophen by NG tube 650 mg every [address] angiogram of the brain revealed posterior right MCA occlusion and left MCA occlusion. Real Estate Internship yesterday discussed with Dr. Colindres. Decision not for stent retrieval/anticoagulant due to high risk of hemorrhagic conversion with embolic stroke Recent CT brain revealed right left shift 3 mm.. Recheck today 02/13 Neurochecks Respiratory: Acute respiratory failure Left lower lobe infiltrate/pneumonia 02/10 patient intubated 7.5 ETT at 22 cm at the lip for airway protection and adequate ventilation ABGs post intubation 7./ / //-6 Chest x-ray shows left lower lobe infiltrate Albuterol/ipratropium aerosols every 4 hours with albuterol aerosols every 2 hours as needed Follow-up on chest x-ray in a.m. 12/ Cardiovascular: Septic shock Aortic regurgitation Aortic valve vegetation Elevated troponin ? Coronary artery emboli Currently on norepinephrine drip at 8 mcg/min for septic shock On one half normal saline with 1 ampicillin bicarbonate 125 cc an hour Initial troponin 7 .29, follow-up serial troponin declined down to 1.5 TTEcho-EF 55percent, moderate aortic regurgitation, mild MR, mild TR, small pericardial effusion, vegetation aortic valve, PASP [address] Jitendra following as needed. ROSANNA with 11 x 14 left cusp aortic valve vegetation /renal: AK I Patient extremely dehydrated need close monitoring at this time -- Strict I/Os FEN/GI: Diarrhea Transaminitis Gastroenteritis secondary to opioid/heroin withdrawal History of Salmonella enteritis Protein calorie malnutrition Hepatitis C IgG antibody positive Patient bolused with 2 L normal saline IV fluid, give additional 2 L bolus Central line placed CVP monitoring medication administration and to obtain labs. Electrolyte replacement per ICU protocol Start tube feeding vital 1.5 goal 50 cc an hour Currently on one half normal saline with 50 mEq of bicarbonate 125 cc an hour. Discontinued today Lansoprazole for GI prophylaxis Heme/ID: Sepsis -staph aureus bacteremia, sputum, UTI with E. 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 Discontinue vancomycin 02/12 Follow-up blood culture 02/10 coag negative staph aureus. Sputum staph aureus. Urine staph aureus coli. Repeat blood cultures 02/11 pending Obtain urine culture, sputum culture Consult ID following Endocrine: Glucose monitoring per ICU protocol -- SSI with aspart insulin every 6 hours Prophylaxis: GI Prophylaxis Lansoprazole DVT Prophylaxis -- SCDs Heparin 5000 units twice daily Lines: Left IJ placed for central venous access 02/10 Critical care time 35 minutes follow-up
== END 2018-02-13 13:15 | disposition expired ==
LOC: NEPC 09:07 → NEDA 10:36 → HIMC 12:15 → NEDA 12:23
PROVIDERS: ADMIT Anesthesiology; ATTEND Anesthesiology